=== PATIENT | female | born 1940 | race Caucasian/White ===

== ENCOUNTER 2024-01-21 14:56 | Inpatient (IN) | payer MEDICARE, SELFPAY ==
[2024-01-21] VITALS (46 sets, daily range): BP systolic 65–131; BP diastolic 35–99; BMI 23.5
[2024-01-21 13:01] LABS: Hematocrit 27.6 % (37.0-47.0); Hemoglobin 8.9 g/dL (12.0-16.0); Mean Corp Hgb Conc. 32.2 g/dL (33.0-37.0); Mean Corpuscular Hgb 30.7 pg (27.0-31.0); Mean Corpuscular Volume 95.2 fL (81.0-99.0); Mean Platelet Volume 10.3 fL (7.4-10.4); Platelet Count 306 10^3/uL (130-400); Red Cell Dist. Width 16.5 % (11.5-14.5); White Blood Cell Count 24.8 10^3/uL (4.8-10.8)
--- NOTE | 2024-01-21 13:13 | ED.GENMED ---
History of Present Illness
General
Chief Complaint: Breathing Problem
Source: patient and other (Niece and nephew in law)
Time Seen by Provider: 01/21/24 12:49
Travel History
Have you had any contact with someone who has COVID-19?: Unable to Answer
Do you have any symptoms of coronavirus? Fever > 100 degrees, chills, cough, shortness of breath, sore throat, loss of taste or smell, muscle aches, or headache?: Unable to Answer
History of Present Illness
History of Present Illness:
This patient is an 83-year-old female who up until a few months ago only had a prior medical history for hypertension and depression/anxiety. She then suffered an out of hospital cardiac arrest and was hospitalized in [place], [facility] and is
now on hemodialysis. She also has bilateral renal artery stenosis, A-fib, and heart failure with preserved ejection fracture. She presents today with increasing dyspnea and oxygen requirement. Yesterday family visited her and she was on 2 L nasal
cannula which is unusual for her. Today they noted she was on 6 L with an obvious cough. She had an x-ray at the facility which was suspicious for pulmonary edema versus consolidation. Patient is overall poor historian given her condition, but
states that she does feel short of breath and has an obvious cough here.
Past History
Past History
ED Past Medical History: Other (Renal artery stenosis, hypertension, heart failure with preserved ejection fraction, A-fib, HTN, ESRD)
Social History
Tobacco: Non-smoker
Drug: None
Living: [facility]
Phy Exam
Physical Exam
Physical Exam:
GENERAL: Alert , in moderate respiratory distress
EYE: pupils equal and reactive
NECK: Supple, no significant adenopathy.
ENT: o/p clr, mm dry, obvious productive cough here
CARDIAC: Regular rate and rhythm .
LUNGS: Equal breath sounds bilaterally, moderate respiratory distress, diffuse Rales with occasional wheezing and rhonchi noted
ABDOMEN: Soft, without focal tenderness, no r/g, no cvat
NEUROLOGICAL: Awake and oriented, no focal neuro deficits
SKIN: Warm and dry, skin intact.
MUSCULOSKELETAL: No edema, well perfused.
PSYCH: Normal and appropriate interaction.
Scores
Heart Failure Risk
Heart Failure Risk Score: Not Applicable
Course
Orders/Labs/Results
Orders:
Orders
01/21/24 12:48
EKG [Electrocardiogram (*1)] Urgent
Reason for Study: Shortness of Breath
01/21/24 12:49
Cardiac Monitoring- Treatment ONCE
EKG- Treatment ONCE
Urinalysis Reflex To Culture Urgent
CR Chest Portable - 1 View Urgent
Comment:
Reason For Exam: sob
Reason Study Needs to be Portable: Patient Unstable
Pulse Ox/cont/shift [RESP] Urgent
Quantity: 1
01/21/24 12:51
Complete Blood Count/With Diff Urgent
Comprehensive Metabolic Panel Urgent
Lactic Acid Q4H
Comment: CANCEL 2nd LACTIC ACID IF 1st LACTIC ACID IS LESS THAN 2
Manual Differential Urgent
Troponin I Urgent
Blood Culture Q30M
[place] Source: Blood/Venous
Specimen Description:
Blood Culture Q30M
[place] Source: Blood/Venous
Specimen Description:
Influenza A+B Rapid Molecular Urgent
[place] Source: Nasal Swab
Specimen Description:
01/21/24 12:53
COVID-19 Antigen Urgent
Source: Nasal Swab
01/21/24 13:19
Piperacillin/Tazo 4.5 Gram [Zosyn] 4.5 gram in 100 ml IV NOW
01/21/24 14:15
Sputum Culture [Respiratory Culture/Gram Stain] Urgent
[place] Source: Sputum
Specimen Description:
01/21/24 14:21
Epoetin Ab-Epbx [Retacrit] 8,000 units IV HD-ONCE ONE
Heparin See Dose Instructions INTRACATH HD-ONCE ONE
Mannitol 12.5 grams IV HD-Q1HPRN PRN
Midodrine [ProAmatine] 10 mg PO HD-ONCE ONE
Sodium Chloride [Sodium Chloride 4 Meq/ml For Hemodialysis] 10 ml IV HD-Q1HPRN PRN
Hemodialysis treatment As Directed
Treatment date:: 01/21/24
Treatment type: Hemodialysis
Ultrafiltration (kg): 2-3kg
Treatment time (duration): 3 hours 30 minutes
Use dialysis access:: Tunneled Cath
Dialyzer:: Optiflux 160
Blood flow rate minimum: 350
Blood flow rate maximum: 400
Dialysis flow rate: 600 mL/min
Dialysate temperature: 37 degrees Celsius
Sodium (Na): 137
Potassium (K): 2
Calcium (Ca): 2.5
Bicarbonate (HCO3): 37
01/21/24 14:29
Admit/Transfer Patient As Directed
Co-Sign Provider:
Level of Care: Inpatient admission
Assign to:: ICU
Physician / Group: Dr Antoine
Diagnosis: Acute hypoxic respiratory failure
Reason for Hospitalization: pte p/w sob and hypoxia, found PNA and volume overload.
Expected length of stay greater than two midnights?: Yes
ELOS- Estimated Length of Stay in days: 2
I certify the patient meets the requirements for IP care: Yes
01/21/24 14:31
Code Status As Directed
Resuscitation Status: Full Code
01/21/24 14:33
Sputum Culture [Respiratory Culture/Gram Stain] Routine
[place] Source: Sputum
Specimen Description:
Speech Therapy Eval & Treat Routine
Treatment: swallowing eval
01/21/24 14:34
NEPHROLOGY CONSULT Routine
Consulting Provider: Adam London V.
Was physician already notified: Yes
Reason for consult: HD needs- ESRD
01/21/24 14:35
Tra[employer] Consult Routine
Consulting Provider: Odessa Tanner
Was physician already notified: Yes
Reason for consult: Acute hypoxic resp failure and pna
01/21/24 14:36
Dextrose 50%-Water [Dextrose 50% Syringe] 12.5 grams IV [id number] PRN
Glucagon [GlucaGen] 1 mg IM PRN PRN
Bedside Glucose Monitoring As Directed
Frequency: Q6H
Additional Instructions:: Change to q6h if pt on TPN, tube feeding or not eating
01/21/24 14:38
Legionella Urinary Antigen Routine
[place] Source: Urine
Specimen Description:
Strep pneumoniae Antigen Routine
[place] Source: Urine
Specimen Description:
[place] Catheter [Catheter- Indwelling] As Directed
Reason for insertion: I&O's Critical Care
Assess insertion reason daily.Remove if no longer applicable: Yes
01/21/24 14:45
Blood Culture Q30M
[place] Source: Blood/Venous
Specimen Description:
01/21/24 15:15
Blood Culture Q30M
[place] Source: Blood/Venous
Specimen Description:
01/21/24 16:00
Troponin I Q8H
Piperacillin/Tazo 3.375 Gram [Zosyn] 3.375 gram in 50 ml IV Q6H
VANCOMYCIN Pharmacy to Dose [VANCOCIN Pharmacy to Dose] 1 each Pharmacy To Prepare [Call Pharmacy To Prepare] 0 ml IV PER PROTOCOL
01/21/24 17:00
Lactic Acid Q4H
Comment: CANCEL 2nd LACTIC ACID IF 1st LACTIC ACID IS LESS THAN 2
01/21/24 18:00
Insulin Aspart Corrective Low [Novolog Flexpen-Low Resistance] See Protocol SC Q6
01/22/24 00:00
Troponin I Q8H
01/22/24 06:00
B12 [Vitamin B12] IN AM
Ferritin IN AM
Folate IN AM
Glycohemoglobin (HgbA1c) IN AM
Iron IN AM
LFT [Rkwqg-Sjev-Agumlxm] IN AM
Total Iron Binding IN AM
01/22/24 08:00
Troponin I Q8H
Abnormal Lab Results
01/21/24
12:51
WBC 24.8 H 10^3/uL
(4.8-10.8)
RBC 2.90 L 10^6/uL
(4.20-5.40)
Hgb 8.9 L g/dL
(12.0-16.0)
Hct 27.6 L %
(37.0-47.0)
MCHC 32.2 L g/dL
(33.0-37.0)
RDW 16.5 H %
(11.5-14.5)
Abs Neuts (Manual) 22.5 H 10^3/uL
(1.4-6.5)
Band Neutrophils 30 H %
(0-3)
Lymphocytes (Manual) 5 L %
(20-51)
Sodium 128 L mmol/L
(135-145)
Chloride 94 L mmol/L
(98-107)
BUN 45 H mg/dl
(7-17)
Creatinine 2.9 H mg/dL
(0.6-1.0)
Glucose 200 H mg/dl
(70-99)
Lactic Acid 3.3 H mmol/L
(0.7-2.0)
Alkaline Phosphatase 128 H U/L
(38-126)
Troponin I 0.073 H* ng/ml
Albumin 3.3 L g/dl
(3.5-5.0)
01/21/24 12:51
01/21/24 12:51
Vital Signs
Initial and Last Documented VS:
Initial Vital Signs
Temp Pulse Resp BP Pulse Ox
100.1 F 103 26 123/75 100
01/21/24 12:45 01/21/24 12:45 01/21/24 12:45 01/21/24 12:45 01/21/24 12:45
Last Documented Vital Signs
Temp Pulse Resp BP Pulse Ox
100.1 F 102 22 114/68 98
01/21/24 12:45 01/21/24 14:30 01/21/24 14:30 01/21/24 14:30 01/21/24 14:15
*Critical Care Note
Total Time (30-74mins, 75-104mins- exclusive of procedures): 30
Update Note
Update Note:
Patient presents to the Emergency Department with ____shortness of breath
Number and Complexity of Problems Addressed at the Encounter
� Chronic conditions affecting care:
� Acute Exacerbation and/or Progression of Chronic Illness:
� Differential Diagnosis includes: But not limited to sepsis, pneumonia, pulmonary edema, ACS, etc. etc.
Amount and/or Complexity of Data to be Reviewed and Analyzed
� I performed an independent evaluation of and my interpretation is:
EKG:read by me, sinus tachy with 1st degree block no acute ishcemia
CT:
Xrays:read by rads, suspicious for bilat pna
Laboratory Studies: White blood cell count elevation consistent with suspected infection, anemia noted distant with renal disease
Other:
� Review of other/old records reveals:
� Clinical information was obtained by an independent historian: Nephew in law who is a bander hand and bedside, extensive history obtained from him� Also [facility] records reviewed
� Prescriptions/Medications Considered but not given:
� Further testing considered but not performed:
Risk of Complications and/or Morbidity or Mortality of Patient Management
� Social determinants of health affecting care:
� Discussion with other providers (PCP, Hospitalists, Consultants, etc): 1:18 PM Case discussed with Dr. London from nephrology, aware of patient condition my recommendation for emergent dialysis. Clinically I suspect pulmonary
edema as well as pneumonia.� Low-grade fever, white blood cell count elevation.
� Escalation of care including admission/observation vs risk of discharge considered: Pt resassessed, stable on NRB. Case d/w hospitalist for admission, family updated. Abx running. I am reluctant to give 30 ml/kg blus given
pulm edema/ESRD as well. Bp stable.
ED Attending Note
-
Portions of this chart may have been created with voice recognition software.� Occasional wrong word or��sound alike� substitutions may have occurred due to the inherent limitations of voice recognition software.
Discharge Plan
Departure
Patient Disposition: Admit
Date of Disposition: 01/21/24
Time of Disposition: 13:53
Admit to: ICU
Presentation/result/management discussed w/ accepting MD/DO: Hospitalist
Condition: Critical
Discharge Problem:
Pneumonia, Acute respiratory distress
Interventions
Interventions:
*Risk Screen - Suicide Last Done: 01/21/24 12:47
*General Assessment Last Done: 01/21/24 12:41
*Neglect/Abuse Screening Last Done: 01/21/24 12:47
ED- Fall Risk Assessment Last Done: 01/21/24 13:27
*ED COVID-19 Vaccine History Last Done: 01/21/24 12:41
ED- Cardiac Assessment Last Done: 01/21/24 12:49
ED- Pulmonary Assessment Last Done: 01/21/24 13:27
[2024-01-21 13:16] LABS: ALT (SGPT) 17 U/L (0-35); AST (SGOT) 28 U/L (14-36); Albumin 3.3 g/dl (3.5-5.0); Alkaline Phosphatase 128 U/L (38-126); Blood Urea Nitrogen 45 mg/dl (7-17); Calcium 8.7 mg/dl (8.4-10.2); Carbon Dioxide 24 mmol/L (22-30); Chloride 94 mmol/L (98-107); Glucose 200 mg/dl (70-99); Potassium 4.7 mmol/L (3.5-5.1); Sodium 128 mmol/L (135-145); Total Bilirubin 0.7 mg/dl (0.2-1.3); Total Protein 6.4 g/dl (6.3-8.2); eGFR 15.58
[2024-01-21 13:17] LABS: COVID-19 Antigen Negative (Negative)
[2024-01-21 13:20] LABS: Absolute Neutrophils -Man Diff 22.5 10^3/uL (1.4-6.5); Band Neutrophils 30 % (0-3); Lymphocytes 5 % (20-51); Metamyelocytes 1 % (-); Monocytes 3 % (2-9); Segmented Neutrophils 61 % (42-75)
[2024-01-21 13:21] LABS: Normal RBC Morphology Yes; Platelets Checked Yes; Total Cells Counted 100
[2024-01-21 13:25] LABS: Lactic Acid 3.3 mmol/L (0.7-2.0)
[2024-01-21] MEDS: ZOSYN 100 IV (13:26)
[2024-01-21 13:31] LABS: Troponin I 0.073 ng/ml
--- NOTE | 2024-01-21 14:23 | W.CON.NEPH ---
Consultation
-
Date/Time Consultation Requested: 01/21/24 2:15 PM
Date/Time Consultation Performed: 01/21/24 2:15 PM
Requesting Provider: Elina
Performing Provider: Dr. London
Reason for Consultation: ESRD
Medical History
-
Chief Complaint: ESRD/hypoxia/respiratory distress
History of Present Illness:
The patient is an 83-year-old female who is new to end-stage renal disease. Apparently she was hospitalized in the [place] area and developed ATN following an out of hospital cardiac arrest. During that admission she was placed on dialysis until
she was eventually discharged a few few weeks prior and is now at [facility] receiving dialysis Sunday. Prior to that hospitalization she was in good health and without previous cardiac or renal abnormalities as per review with her
nephew who is a avionics electronics technician at [employer]. He also informing that she had been diagnosed with bilateral renal artery stenosis by duplex during that hospitalization in [place]. No cardiac catheterization was performed following the cardiac arrest
as she had developed acute kidney injury and they wish to limit dye exposure. She does have a history of paroxysmal A-fib and is anticoagulated with Eliquis. She now does have a history of hypertension and is maintained on both Aldactone and
carvedilol. She receives midodrine support on dialysis to augment ultrafiltration. Yesterday family visited her and she was on 2 L nasal cannula which is unusual for her. Today they noted she was on 6 L with an obvious cough. She had an x-ray at
the facility which was suspicious for pulmonary edema versus consolidation. Patient is overall poor historian given her condition, but states that she does feel short of breath and has an obvious cough here. Most of her history was obtained by
speaking to her nephew at the bedside. We were consulted for her end-stage renal disease and respiratory distress in the setting of possible congestive heart failure versus pneumonia.
Past Medical History
(Suspected bilateral renal artery stenosis, hypertension, heart failure with preserved ejection fraction, A-fib, HTN, ESRD over the past couple months with suspected ATN etiology following cardiac arrest when hospitalized in [facility])
Social History
Tobacco: Former Smoker
Alcohol: None
Drug: None
Living: Care Home
Family History
No chronic kidney disease
Allergies / Home Medications
Allergy/AdvReac Type Severity Reaction Status Date / Time
No Known Allergies Allergy Unverified 01/21/24 12:45
�Medication �Instructions �Recorded �Confirmed �Type
acetaminophen 325 mg tablet 650 mg PO Q6HPRN PRN mild pain 01/21/24 01/21/24 History
(Tylenol)
apixaban 2.5 mg tablet (Eliquis) 2.5 mg PO BID 01/21/24 01/21/24 History
atorvastatin 40 mg tablet (Lipitor) 40 mg PO HS 01/21/24 01/21/24 History
bisacodyl 10 mg rectal suppository 10 mg MO DAILYPRN PRN if no bm 01/21/24 01/21/24 History
(Dulcolax (bisacodyl)) aftr mom
budesonide-formoterol HFA 160 2 inh inhalation R [id number] PRN sob 01/21/24 01/21/24 History
mcg-4.5 mcg/actuation aerosol
inhaler (Symbicort)
carvedilol 6.25 mg tablet (Coreg) 6.25 mg PO BID 01/21/24 01/21/24 History
dextromethorphan-guaifenesin 5 10 ml PO Q8HPRN PRN cough 01/21/24 01/21/24 History
mg-100 mg/5 mL oral liquid
(Robitussin Cough-Chest Congestion
DM)
ferrous sulfate 325 mg (65 mg 325 mg PO DAILY 01/21/24 01/21/24 History
iron) tablet
levothyroxine 100 mcg tablet 100 mcg PO DAILY 01/21/24 01/21/24 History
(Synthroid)
midodrine 10 mg tablet 10 mg PO DAILYPRN PRN low bp 01/21/24 01/21/24 History
mirtazapine 15 mg tablet (Remeron) 7.5 mg PO HS 01/21/24 01/21/24 History
nifedipine 90 mg tablet,extended 90 mg PO DAILY 01/21/24 01/21/24 History
release
polyethylene glycol 3350 17 gram 17 g PO DAILY 01/21/24 01/21/24 History
oral powder packet (Miralax)
simethicone 80 mg chewable tablet 80 mg PO [id number] PRN gas 01/21/24 01/21/24 History
sorbitol 70 % solution 30 ml PO DAILYPRN PRN constipation 01/21/24 01/21/24 History
spironolactone 25 mg tablet 25 mg PO DAILY 01/21/24 01/21/24 History
tiotropium bromide 2.5 2 inh inhalation R DAILY 01/21/24 01/21/24 History
mcg/actuation mist for inhalation
vitamin B complex-vitamin C-folic 1 tab PO DAILY 01/21/24 01/21/24 History
acid 0.8 mg tablet (Renal Vitamin)
Review of Systems
-
History Source: Patient and Family
All other systems: Negative unless noted
Constitutional: Fatigue
EENT: No Symptoms
Respiratory: Cough and Trouble Breathing
Cardiac: No Symptoms
Abdomen/GI: No Symptoms
: No Symptoms
Musculoskeletal: No Symptoms
Skin: No Symptoms
Neurological: No Symptoms
Endocrine: No Symptoms
Hematologic/Lymphatic: No Symptoms
Physical Exam
Vital Signs
Vital Signs
Temp Pulse Resp BP Pulse Ox
100.1 F 102 22 121/63 91
01/21/24 12:45 01/21/24 13:45 01/21/24 13:45 01/21/24 13:45 01/21/24 13:45
Lab Results
01/21/24 12:51
01/21/24 12:51
WBC 24.8 10^3/uL (4.8-10.8) H 01/21/24 12:51
RBC 2.90 10^6/uL (4.20-5.40) L 01/21/24 12:51
Hgb 8.9 g/dL (12.0-16.0) L 01/21/24 12:51
Hct 27.6 % (37.0-47.0) L 01/21/24 12:51
Plt Count 306 10^3/uL (130-400) 01/21/24 12:51
Sodium 128 mmol/L (135-145) L 01/21/24 12:51
Potassium 4.7 mmol/L (3.5-5.1) 01/21/24 12:51
Chloride 94 mmol/L (98-107) L 01/21/24 12:51
Carbon Dioxide 24 mmol/L (22-30) 01/21/24 12:51
BUN 45 mg/dl (7-17) H 01/21/24 12:51
Creatinine 2.9 mg/dL (0.6-1.0) H 01/21/24 12:51
eGFR 15.58 01/21/24 12:51
Glucose 200 mg/dl (70-99) H 01/21/24 12:51
Calcium 8.7 mg/dl (8.4-10.2) 01/21/24 12:51
Albumin 3.3 g/dl (3.5-5.0) L 01/21/24 12:51
Physical Exam
General: AOx3, Nontoxic , moderate respiratory distress
HEENT: PERRL, EOMI, Anicteric, Conjunctivae pale, Ear/Nose Intact, Hearing impaired, Oropharynx Clear/Moist, Dentition Intact, Facial Symmetry, Neck Supple, Neck: Trachea Midline, No JVD and No Thyromegaly, no Bruits
Respiratory: Coarse with crackles at the bases bilaterally with normal lung exersion
Cardiac: S1/S2 and Regular Rate/Rhythm tacky
Breast: Deferred by me
Abdomen: Soft, Nontender, Nondistended, Normal Bowel Sounds and No Hepatosplenomegaly
Rectal: Deferred by Provider
Genito-urinary: No Costovertebral Tenderness
Extremities: No Clubbing, No Cyanosis and No Edema
Skin: No Rash or open lesions
Neuro: Nonfocal/Grossly Intact, CN II-XII (Intact) and Strength (Musculoskeletal exam 5 out of 5 both upper and lower extremities)
Hematologic/Lymphatic: No Cervical Lymphadenopathy, No Submandibular Lymphadenopathy and No Supraclavicular Lymphadenopathy
Psych: Anxious but flat affect pleasant, Insight/judgement good and Appropriate
Vascular: plus 1 pedal and radial pulses
Vascular Access: CVC (Right anterior chest wall)
Data Reviewed
-
Radiology: Image Personally Visualized and interpreted (Chest x-ray personally reviewed noted bilateral pulmonary infiltrates at bases)
Medical Tests (Nuc Med, Echo etc): Other (EKG report notes sinus tachycardia with first-degree AV block and premature atrial complexes )
Labs: Labs Reviewed by me (BMP CBC)
Old Records: Requested (Old records from hospitalization and ER)
Assessment/Plan
-
Impression:
Hypoxic respiratory failure
Suspected pneumonia with possible underlying congestive heart failure
End-stage renal disease (new dx within a month with suspected ATN origin following out of hospital cardiac arrest)
Hypertension
Paroxysmal A-fib
Suspected bilateral renal artery stenosis
Hypothyroidism
Anemia
Plan:
Will provide urgent dialysis in setting of respiratory failure with possible congestive heart failure component
Orders provided
Will attempt 2 to 3 kg ultrafiltration with midodrine given to augment blood pressure
XIN will be provided for anemia of chronic kidney disease
Antibiotic therapy to cover nosocomial pneumonia,oxygen support
Will obtain blood and sputum cultures in setting of leukocytosis and fever
Would provide 1500 cc fluid restriction re: hyponatremia in setting of ESRD, appropriate dietary sodium and potassium restrictions
Can check post void bladder scan to assess for possible urinary retention
Suggested to mahesh, who is a avionics electronics technician at [employer], that in the future an MRA be considered to evaluate suspected bilateral renal artery stenosis
--- NOTE | 2024-01-21 14:39 | HPS.HSE ---
Family Physician
-
Family Physician: Bharathi Shah, DO
Chief Complaint
-
sob
History of Present Illness
Patient 82 years old female with history of end-stage renal disease on hemodialysis, hypertension, CHF, A-fib, presented to the hospital shortness of breath. Most of the information gathered from nephew who is a transfer long term care phlebotomist that works at
[employer] and is at bedside corroborated history with patient. Patient had a cardiac arrest about 6 months ago and managed at [facility] and ultimately sent to rehab around this area close to family and at that time she was
diagnosed with atrial fibrillation which was felt to be part of her etiology of her arrest, renal artery stenosis, and HARSHA due to ATN that required hemodialysis and has been on hemodialysis since 3 times a week. She did not have cardiac
catheterization due to her acute illnesses. She is at [facility] around this area and there have been some troubles with her dialysis and is not clear that she has been dialyzed appropriately but last time she had a session was back
on Sunday and she has been noticed to be more short of breath than usual over the last several days associated with increased cough with yellow sputum production. No reports of fevers or chills. No reports of chest pain. No abdominal pain. When
asked if there is issues with dysphagia or choking when eating it looks that she has been having some issues but not entirely clear. She also has been straight cathed multiple times and likely has some urinary incontinence but also there has been
concerns about decreasing her urine output lately but has not been quantified. In the ED, she was noted to be hypoxic and placed on nonrebreather 100% oxygen , she had a white blood cell count of 25,000, hemoglobin 8.9, creatinine 2.9, BUN 45,
troponin 0.073, and lactic acid of 3.3. She also had a chest x-ray with some congestive features but mainly consolidation in the left and right midlung. She was referred to hospitalist for further evaluation.
Medical History
Past Medical History
Past Medical History: Reports Other (Hypertension, hypotension requiring midodrine, chronic diastolic CHF, paroxysmal atrial fibrillation, end-stage renal disease followed by ATN in recent months, renal artery stenosis, cardiorespiratory arrest)
Past Surgical History: Reports Other (Ankle surgerie in the past)
Social History
Tobacco: Former Smoker
Alcohol: None
Drug: None
Family History
Family History: Not pertinent
Allergies / Home Medications
Allergies reflects when Allergies were last updated in [employer].
Home Medications with original date entered in [employer]
Allergy/Medication List:
Allergies
Allergy/AdvReac Type Severity Reaction Status Date / Time
No Known Allergies Allergy Unverified 01/21/24 12:45
Home Medications
acetaminophen 325 mg tablet (Tylenol) 650 mg PO Q6HPRN PRN mild pain 01/21/24
apixaban 2.5 mg tablet (Eliquis) 2.5 mg PO BID 01/21/24
atorvastatin 40 mg tablet (Lipitor) 40 mg PO HS 01/21/24
bisacodyl 10 mg rectal suppository (Dulcolax (bisacodyl)) 10 mg CO DAILYPRN PRN if no bm aftr mom 01/21/24
budesonide-formoterol HFA 160 mcg-4.5 mcg/actuation aerosol inhaler (Symbicort) 2 inh inhalation R [id number] PRN sob 01/21/24
carvedilol 6.25 mg tablet (Coreg) 6.25 mg PO BID 01/21/24
dextromethorphan-guaifenesin 5 mg-100 mg/5 mL oral liquid (Robitussin Cough-Chest Congestion DM) 10 ml PO Q8HPRN PRN cough 01/21/24
ferrous sulfate 325 mg (65 mg iron) tablet 325 mg PO DAILY 01/21/24
levothyroxine 100 mcg tablet (Synthroid) 100 mcg PO DAILY 01/21/24
midodrine 10 mg tablet 10 mg PO DAILYPRN PRN low bp 01/21/24
mirtazapine 15 mg tablet (Remeron) 7.5 mg PO HS 01/21/24
nifedipine 90 mg tablet,extended release 90 mg PO DAILY 01/21/24
polyethylene glycol 3350 17 gram oral powder packet (Miralax) 17 g PO DAILY 01/21/24
simethicone 80 mg chewable tablet 80 mg PO [id number] PRN gas 01/21/24
sorbitol 70 % solution 30 ml PO DAILYPRN PRN constipation 01/21/24
spironolactone 25 mg tablet 25 mg PO DAILY 01/21/24
tiotropium bromide 2.5 mcg/actuation mist for inhalation 2 inh inhalation R DAILY 01/21/24
vitamin B complex-vitamin C-folic acid 0.8 mg tablet (Renal Vitamin) 1 tab PO DAILY 01/21/24
Review of Systems
-
Unable to obtain full review of systems at this time due to: Acuity
Physical Exam
Vital Signs
Vital Signs
Temp Pulse Resp BP Pulse Ox
100.1 F 102 22 114/68 98
01/21/24 12:45 01/21/24 14:30 01/21/24 14:30 01/21/24 14:30 01/21/24 14:15
Physical exam:
General: Acutely ill
HEENT: Normocephalic, Atraumatic and Moist Mucous Membranes
Respiratory: Coarse crackles in both bases more pronounced on the right; Negative Wheezes or Rhonchi
Cardiac: Regular Rhythm and S1/S2, systolic murmur radiating to axilla
GI: Soft, Nontender and Nondistended
Musculoskeletal: No Clubbing, No Cyanosis and B/L Edema
Neuro: Awake, Alert and Oriented
Physical Exam
General: Other
Laboratory Results
-
01/21/24 12:51
01/21/24 12:51
Laboratory Results
Lactic Acid 3.3 mmol/L (0.7-2.0) H 01/21/24 12:51
Total Bilirubin 0.7 mg/dl (0.2-1.3) 01/21/24 12:51
AST 28 U/L (14-36) 01/21/24 12:51
ALT 17 U/L (0-35) 01/21/24 12:51
Alkaline Phosphatase 128 U/L (38-126) H 01/21/24 12:51
Troponin I 0.073 ng/ml H* 01/21/24 12:51
Impression/Plan
-
IMPRESSION:
Patient 83-year-old female with multiple medical problems came into the hospital with shortness of breath and cough and found to be in acute hypoxic respiratory failure. Acute hypoxic respiratory failure seems to be multifactorial likely related to
pneumonia and also probably volume overload to some degree. She also has elevated troponin which could be related to elevated troponin due to non-ischemic myocardial injury versus possibility of acute coronary syndrome. Patient at increased risk
of morbidity and mortality and critically ill so she will need to be admitted to intensive care unit in the hospital. Prognosis guarded overall.
Impression:
Acute hypoxic respiratory failure, multifactorial volume overload related to end-stage renal disease, pneumonia, CHF.
Pneumonia, concerns for aspiration pneumonia
Sepsis due to pneumonia
Lactic acidosis due to above
Possible renal artery stenosis
Conditions prior to presentation:
End-stage renal disease on hemodialysis
Hypertension
Hypotension
Hypothyroidism
Paroxysmal atrial fibrillation
Chronic diastolic CHF
Possible COPD
PLAN:
Continue oxygen supplementation
Keep n.p.o. until respiratory status improves and speech therapy eval for swallowing evaluation
Broad-spectrum IV antibiotics, Zosyn and vancomycin
Discussed with nephrology
Plan for urgent hemodialysis today
Trend cardiac enzymes
Keep cardiac monitoring
Obtain echocardiogram
Contact Representative consult ([place] texted retail analytics manager today)
Obtain blood cultures
Obtain sputum cultures
SCDs for DVT prophylaxis
CODE STATUS full code
Total Critical Care Time 55 minutes. I was immediately available to the patient and staff. I personally examined, reviewed labs, diagnostic images/reports, interpretations, treatment plans, discussed patient care with other providers and family
or caregivers (if patient is unable to make decisions), entered orders as appropriate and documented the medical record.
--- NOTE | 2024-01-21 15:08 | PHA.VAN.IN ---
Assessment
- Assessment
Renal Function: Unknown baseline
Hemodialysis Schedule: MWF
Maximum Temperature: 100.1
Minimum Temperature: 100.1
Concomitant Antimicrobials: Piperacillin/Tazobactam
Plan
- Plan
Initial / Loading Dose: 1250mg post HD
Pharmacokinetics Vancomycin I
- -
Patient Age: 83
Patient Sex: Female
Vancomycin Day #: 1
Indication: Pulmonary/Respiratory
Requesting Provider: Alma Antoine
Pertinent Antimicrobial Allergies:
NKDA
Height / Weight:
Actual Weight 62 kg
Pertinent Past Medical History: ESRD
- Vital Signs / Lab Results
Temp Pulse Resp BP Pulse Ox
100.1 F 102 22 114/68 98
01/21/24 12:45 01/21/24 14:30 01/21/24 14:30 01/21/24 14:30 01/21/24 14:15
Lab Results - Hematology
01/21/24
12:51
WBC 24.8 H
Band Neutrophils 30 H
Lab Results - Chemistry
01/21/24
12:51
BUN 45 H
Creatinine 2.9 H
Albumin 3.3 L
01/21/24
12:51
Lactic Acid 3.3 H
Microbiology Results
01/21/24 12:51 Influenza Types A & B (DINORAH) - Final
Nasal Swab Negative for Influenza A & B, NAAT
Negative results must be combined with clinical observations
and patient history.
Nucleic Acid Amplification test (NAAT)performed on the
[employer] platform.
--- NOTE | 2024-01-21 16:16 | CON.INTV ---
Consultation
Consultation Request
Date/Time Consultation Requested: 01/20
Date/Time Consultation Performed: 01/20
Reason for Consultation: Critical care
Medical History
-
History of Present Illness:
History obtained from the chart, from pt, and daughter and son in law by phone (president commercial [employer]). 83-year-old female [facility] resident with history of hypertension, out of hospital cardiac arrest while in [place] complicated by ATN/end-stage
renal disease on hemodialysis, bilateral renal artery stenosis, history of heart failure and atrial fibrillation who presents with increased shortness of breath and oxygen requirement. Patient apparently is on 2 L as an outpatient, but required up
to 6 L. Outpatient chest x-ray suggested heart failure versus pneumonia. Upon arrival to [facility], temperature 100.1, pulse 103, breathing at 26, blood pressure 123/75, 100% saturation. EKG with sinus tachycardia, chest x-ray concerning
for bilateral patchy pneumonia left worse than right. Leukocytosis noted. Patient was given antibiotics and admitted to ICU for further management. Of note, significant leukocytosis and creatinine of 2.9 noted, lactate 3.3. We are asked to help
from critical care standpoint 01/21/2024
There is a hx of weight loss, poor dentition
.
PMH: Suspected bilateral renal artery stenosis, end-stage renal disease secondary to ATN following cardiac arrest (PEA) while in [facility] November 2023, traumatic intubation with tooth loss and aspiration of tooth requiring bronch with retrieval,
hypertension with HTN urgency/emergency?, history of atrial fibrillation, history of heart failure with mod MR, congenital left sided facial droop, left ankle fx 2014, depression/anxiety. Hx of COPD.
Past Medical History
Past Medical History: None (See above)
Past Surgical History: None (See above)
Social History
Tobacco: Smoker (quit 1989, 30py)
Alcohol: None
Drug: None
Personal: Single
Living: Detention (since December 2023, prior was independent in [facility])
Employment: Not Employed
Family History
Family History: Other (7 siblings (1 from breast ca), hx of , afib, breast ca. No children)
Allergies / Home Medications
Allergies
Allergy/AdvReac Type Severity Reaction Status Date / Time
No Known Allergies Allergy Unverified 01/21/24 12:45
Home Medications
�Medication �Instructions �Recorded �Confirmed �Last Taken �Type
acetaminophen 325 mg tablet 650 mg PO Q6HPRN PRN mild pain 01/21/24 01/21/24 Unknown History
(Tylenol)
apixaban 2.5 mg tablet (Eliquis) 2.5 mg PO BID 01/21/24 01/21/24 Unknown History
atorvastatin 40 mg tablet (Lipitor) 40 mg PO HS 01/21/24 01/21/24 Unknown History
bisacodyl 10 mg rectal suppository 10 mg WI DAILYPRN PRN if no bm 01/21/24 01/21/24 Unknown History
(Dulcolax (bisacodyl)) aftr mom
budesonide-formoterol HFA 160 2 inh inhalation R [id number] PRN sob 01/21/24 01/21/24 Unknown History
mcg-4.5 mcg/actuation aerosol
inhaler (Symbicort)
carvedilol 6.25 mg tablet (Coreg) 6.25 mg PO BID 01/21/24 01/21/24 Unknown History
dextromethorphan-guaifenesin 5 10 ml PO Q8HPRN PRN cough 01/21/24 01/21/24 Unknown History
mg-100 mg/5 mL oral liquid
(Robitussin Cough-Chest Congestion
DM)
ferrous sulfate 325 mg (65 mg 325 mg PO DAILY 01/21/24 01/21/24 Unknown History
iron) tablet
levothyroxine 100 mcg tablet 100 mcg PO DAILY 01/21/24 01/21/24 Unknown History
(Synthroid)
midodrine 10 mg tablet 10 mg PO DAILYPRN PRN low bp 01/21/24 01/21/24 Unknown History
mirtazapine 15 mg tablet (Remeron) 7.5 mg PO HS 01/21/24 01/21/24 Unknown History
nifedipine 90 mg tablet,extended 90 mg PO DAILY 01/21/24 01/21/24 Unknown History
release
polyethylene glycol 3350 17 gram 17 g PO DAILY 01/21/24 01/21/24 Unknown History
oral powder packet (Miralax)
simethicone 80 mg chewable tablet 80 mg PO [id number] PRN gas 01/21/24 01/21/24 Unknown History
sorbitol 70 % solution 30 ml PO DAILYPRN PRN constipation 01/21/24 01/21/24 Unknown History
spironolactone 25 mg tablet 25 mg PO DAILY 01/21/24 01/21/24 Unknown History
tiotropium bromide 2.5 2 inh inhalation R DAILY 01/21/24 01/21/24 Unknown History
mcg/actuation mist for inhalation
vitamin B complex-vitamin C-folic 1 tab PO DAILY 01/21/24 01/21/24 Unknown History
acid 0.8 mg tablet (Renal Vitamin)
Review of Systems
-
History Source: Family
Vitals / Labs / Diagnostic Testing
Vital Signs
Temp Pulse Resp BP Pulse Ox
100.1 F 101 33 124/60 96
01/21/24 12:45 01/21/24 16:01 01/21/24 16:01 01/21/24 16:01 01/21/24 16:00
Lab Data
01/21/24 12:51
01/21/24 12:51
Microbiology
01/21/24 12:51 Nasal Swab Influenza Types A & B (DINORAH) - Final
Negative for Influenza A & B, NAAT
Negative results must be combined with clinical observations
and patient history.
Nucleic Acid Amplification test (NAAT)performed on the
[employer] platform.
Diagnostic Testing:
Physical Exam
-
HEENT: Normocephalic, Anicteric and Other (poor dentition)
Cardiovascular: S1/S2, Regular Rhythm, Murmur (n), Rub (n) and Peripheral Edema (n)
Respiratory: Wheeze (n), Rales (n), Rhonchi (left greater than rt) and Accessory Resp Muscle Use (mild)
GI: Soft, Non Distended and Non Tender
Neurology: Awake, Alert and No Motor Deficits (moves all extremities)
Skin: Good Color
General: Comfortable
Assessment
-
83-year-old female with history of atrial fibrillation on anticoagulation, history of [id number] cardiac arrest in the past complicated by end-stage renal disease, on hemodialysis who presents with suspected bilateral patchy pneumonia,
leukocytosis, worsening hypoxia. Patient admitted to ICU for further management 01/21/2024
Acute hypoxic respiratory insufficiency
Requiring nonrebreather
Bilateral infiltrates, suspected pneumonia
Leukocytosis, bandemia
Anemia
ESRD on HD (M/W/F)
Hyponatremia hyperglycemia
Mildly elevated troponin
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
Normal biventricular function
Conditions present prior to admission
Hypertension/hyperlipidemia hypothyroidism
History of OOHCA/PEA November 2023
VDRF
c/b ATN/ESRD
Aspirated tooth secondary to traumatic intubation November 2023
Required bronchoscopy with retrieval on right side
Atrial fibrillation on anticoagulation
Hx of Hypothyroidism
History of COPD
[id number] history of smoking quit 1989
Plan/recommendations
At this time, patient is critically ill
She is conversant, Pennington catheter in place, cloudy urine being drained
Chest exam and chest x-ray worrisome for bilateral pneumonia
Patient with okay cough
Significant smoking history noted
Moving forward
Continue with empiric antibiotics, currently on Zosyn/vancomycin
Cultures pending
Transition to nebulized therapy, chest percussion
Will set up on sport bed with percussion 3 times daily
Check ABG
Head of bed elevated, aspiration precautions
Doubt heart failure. Echocardiogram with normal biventricular function, eccentric MR noted
Apparently had echocardiogram while in [facility] with mild to moderate MR at that time
Elevated troponins noted, trend
Other etiologies to consider include thromboembolic disease but exam, leukocytosis and chest x-ray are worrisome for pneumonia
Patient did have an aspirated tooth with difficult intubation/traumatic intubation while in [facility] requiring a bronchoscopy with tooth retrieval on right side of the lung
Poor dentition is noted
Follow blood sugars
Low-dose insulin sliding scale. Hyperglycemia noted
DVT prophylaxis: Add subcutaneous heparin
GI prophylaxis: Not indicated at this time
Reviewed with critical care nursing
Updated son-in-law by phone/daughter. Son-in-law is president commercial bank, transplant/heart failure specialist at [place]
All questions answered
TCCT 40 min
[2024-01-21 16:51] LABS: Troponin I 0.079 ng/ml
[2024-01-21 17:00] LABS: Glucose - Point of Care 200 mg/dl (70-99)
[2024-01-21 17:10] LABS: Lactic Acid 3.3 mmol/L (0.7-2.0)
--- NOTE | 2024-01-21 17:19 | W.PN.NEPH.HD ---
Assessment
-
Patient very tachypneic and short of breath
Will attempt to maximize UF as hemodynamically tolerated
Dialysis via right tunneled IJ catheter
Progress Note - Hemodialysis
-
Date of Service: January 21, 2024
Duration: 30 minutes and 3 hours
Potassium Bath: 2
Calcium Bath: 2.5
Opti-Dialyzer: 160
Ultrafiltration: Other (2 to 3 kg as hemodynamically tolerated)
Blood Flow: 400
Heparin: None
EPO: 8000
[2024-01-21] MEDS: NOVOLOG FLEXPEN-LOW RESISTANCE 2 UNITS SC (17:20)
--- NOTE | 2024-01-21 17:32 | W.PN.UPDATE ---
Addendum entered and electronically signed by Odessa Tanner MD 01/21/24 17:48:
STEPHEN cell # [phone]
Original Note:
Update Note
Progress Note Update
Evaluating patient multiple times over the last few hours
Upon starting hemodialysis, there was a question as to whether patient was aphasic, had word finding difficulties.
With my assessment and with son-in-law at the bedside, patient was able to speak in complete sentences answering but then would have occasional word finding difficulties but was able to communicate effectively
Brief neuroexam per my review without any acute findings.
Patient with chronic left facial droop
She is following commands
She is making requests
I suspect her intermittent word findings is combination/multifactorial. Sepsis, shortness of breath, dyspnea with rapid shallow breathing and profound weakness
Briefly spoke with neurology by phone. Did not pursue head CT imaging at this time. Patient already on Eliquis therapy.
If exam changes we will pursue head CT imaging and appropriate neurology evaluation
More concerned about respiratory status, CO2 retention
Await ABG. Suspected to be secondary to sepsis with respiratory alkalemia
May need to transition to high flow depending on a gradient
Patient high risk for intubation. Reviewed with family at bedside including son-in-law who is a internal carver
TCCT 37 min
[2024-01-21 17:40] LABS: B.E. 3.3 mmol/L; HCO3 26.7 mmol/L (21-28); O2 Saturation % 98.4 % (94-98); PCO2 35 mmHg (32-35); PO2 79 mmHg (83-108); pH 7.49 (7.35-7.45)
[2024-01-21] MEDS: ProAmatine 10 MG PO (18:11)
--- NOTE | 2024-01-21 18:29 | PTCARENOTE ---
Received pt from ED for stat HD. Assessment performed as noted. Pt, upon arrival to ICU, word searching, unable to state location after ED reported A&O. Stroke alert called but cancelled by Multiple Drum Sander, Superintendent Stations, and Neurologist. Family at
bedside stating that she does not have this problem at baseline but feels that she is okay and they don't feel that she has had a stroke. ABG performed, labs sent. Pennington placed as ordered. NRB removed and 15L MF placed. SpO2 95% with frequent moist
weak cough. ST with frequent PACs. Able to take meds PO without issue. HD Began at 1725.
[2024-01-21] MEDS: RETACRIT 8000 UNITS IV (18:44)
[2024-01-21] MEDS: MANNITOL 12.5 GRAMS IV ×2 (18:45→20:07)
[2024-01-21] MEDS: PULMICORT 0.5 MG INH (19:37)
[2024-01-21] MEDS: DUONEB 3 ML INH (19:37)
[2024-01-21] MEDS: VANCOCIN 275 MG IV (20:01)
[2024-01-21] MEDS: HEPARIN 10000 UNITS INTRACATH (20:48)
--- NOTE | 2024-01-21 21:00 | PTCARENOTE ---
received patient. HD ongoing at bedside. pt ZUNI with hearing aid in R ear. oriented x3, L side facial droop/paralysis noted. ST on monitor. c/o SOB, NRB placed on top of 15L midflow. pt desatting to low 80s, RT contacted to place pt on HFNC. high
flow initiated 100% 50L, relief noted by patient - satting 94%. NPO. riley in place, milky yellow urine noted. care ongoing.
[2024-01-21 21:57] LABS: Urine Albumin 1+ (Neg - Trace); Urine Bilirubin 1+ (Negative); Urine Character Very Cloudy (Clear); Urine Color Yellow; Urine Glucose Negative (Negative); Urine Ketone Trace (Negative); Urine Leukocyte 2+ (Negative); Urine Nitrite Negative (Negative); Urine Occult Blood 3+ (Negative); Urine Urobilinogen Negative (Neg - 1+)
[2024-01-21 22:03] LABS: Urine Bacteria Many (Negative); Urine Granular Cast >15 /LPF (0); Urine Squamous Cell 0-2 /LPF (Few); Urine White Cell >100 /HPF (0-5)
[2024-01-21] MEDS: ZOSYN 50 IV (23:12)
[2024-01-21] MEDS: HEPARIN 5000 UNITS SC (23:12)
[2024-01-21 23:31] LABS: Glucose - Point of Care 124 mg/dl (70-99)
[2024-01-21] MEDS: NOVOLOG FLEXPEN-MODERATE RESISTANCE SC (23:31)
[2024-01-22] VITALS (50 sets, daily range): BP systolic 85–128; BP diastolic 48–95; PULSE 94; O2SAT 97; BMI 22.9
--- NOTE | 2024-01-22 00:18 | PTCARENOTE ---
pt reassessed. remains ST on monitor. afebrile. HFNC settings adjusted to 60L, 100% with NRB on top. pt now satting 95%. minimal UOP. pt repositioned. care ongoing.
--- NOTE | 2024-01-22 01:44 | PTCARENOTE ---
pt with HFNC 100% 60L and NRB, satting high 80s, RR in 40s, looks visibly fatigued. ICU CHERRY DIPPER notified, ABG ordered and drawn. awaiting results
[2024-01-22 01:47] LABS: B.E. 7.7 mmol/L; HCO3 30.8 mmol/L (21-28); Ionized Calcium 1.12 mMOL/L (1.15-1.33); O2 Saturation % 96.5 % (94-98); PCO2 36 mmHg (32-35); PO2 66 mmHg (83-108); Potassium 3.8 mMOL/L (3.5-5.1); Sodium 131 mMOL/L (136-145); pH 7.54 (7.35-7.45)
[2024-01-22 01:49] LABS: Troponin I 0.072 ng/ml
[2024-01-22] MEDS: OFIRMEV 100 IV (02:20)
[2024-01-22 04:41] LABS: Hematocrit 22.9 % (37.0-47.0); Hemoglobin 7.4 g/dL (12.0-16.0); Mean Corp Hgb Conc. 32.3 g/dL (33.0-37.0); Mean Corpuscular Hgb 30.2 pg (27.0-31.0); Mean Corpuscular Volume 93.5 fL (81.0-99.0); Mean Platelet Volume 10.1 fL (7.4-10.4); Nucleated Red Blood Cells % 0 %; Platelet Count 244 10^3/uL (130-400); Red Blood Cell Count 2.45 10^6/uL (4.20-5.40); Red Cell Dist. Width 16.3 % (11.5-14.5); White Blood Cell Count 21.7 10^3/uL (4.8-10.8)
--- NOTE | 2024-01-22 04:46 | PTCARENOTE ---
pt reassessed. AM labs sent. repositioned with pillows. neuro status unchanged. SR on monitor. HFNC settings remain at 60L 100%. currently satting 100%. ofirmev x1. care ongoing.
[2024-01-22 05:11] LABS: ALT (SGPT) 13 U/L (0-35); AST (SGOT) 27 U/L (14-36); Albumin 2.6 g/dl (3.5-5.0); Alkaline Phosphatase 109 U/L (38-126); Blood Urea Nitrogen 22 mg/dl (7-17); Carbon Dioxide 27 mmol/L (22-30); Chloride 94 mmol/L (98-107); Direct Bilirubin 0.7 mg/dl (0.0-0.4); Estimated Creatinine Clearance 19 ml/min; Glucose 138 mg/dl (70-99); Iron 21 ug/dl (37-170); Potassium 3.6 mmol/L (3.5-5.1); Sodium 130 mmol/L (135-145); Total Bilirubin 0.9 mg/dl (0.2-1.3); Total Protein 5.4 g/dl (6.3-8.2); eGFR 25.88
[2024-01-22] MEDS: NOVOLOG FLEXPEN-MODERATE RESISTANCE SC ×2 (05:12→17:17)
[2024-01-22 05:13] LABS: Absolute Neutrophils -Man Diff 18.4 10^3/uL (1.4-6.5); Band Neutrophils 37 % (0-3); Hypochromasia 1+; Lymphocytes 8 % (20-51); Metamyelocytes 3 % (-); Monocytes 3 % (2-9); Myelocytes 1 % (-); Normal RBC Morphology No; Platelets Checked Yes; Segmented Neutrophils 48 % (42-75); Total Cells Counted 100; Vacuolated Segs 1+
[2024-01-22 05:21] LABS: Percent Saturation 14 % (20-50); Total Iron Binding Capacity 144 ug/dl (265-497)
[2024-01-22] MEDS: ZOSYN 50 IV ×3 (05:24→21:15)
[2024-01-22 05:55] LABS: Hepatitis B Surface Antibody Negative
[2024-01-22] MEDS: CALCIUM GLUCONATE 100 IV (06:05)
[2024-01-22 06:19] LABS: Folate 7.6 ng/ml (2.76-20); Vitamin B12 723 pg/ml (239-931)
[2024-01-22] MEDS: HEPARIN 5000 UNITS SC (07:23)
[2024-01-22] MEDS: DUONEB 3 ML INH ×4 (07:34→19:31)
[2024-01-22] MEDS: PULMICORT 0.5 MG INH ×2 (07:34→19:31)
--- NOTE | 2024-01-22 08:03 | W.PN.INTV ---
Today's Communication / Plan
Recommendations
Sport bed, airway clearance
Add midodrine
May require intermittent fluid bolus
Restart Eliquis
Continue broad-spectrum antibiotics
Chest x-ray in a.m. speech and swallow eval, restart p.o. as able
Assessment
-
83-year-old female with history of atrial fibrillation on anticoagulation, history of [id number] cardiac arrest in the past complicated by end-stage renal disease, on hemodialysis who presents with suspected bilateral patchy pneumonia,
leukocytosis, worsening hypoxia. Patient admitted to ICU for further management 01/21/2024
Acute hypoxic respiratory insufficiency
Requiring nonrebreather, transition to high flow
Bilateral infiltrates, suspected pneumonia
Leukocytosis, bandemia
Anemia
ESRD on HD (M/W/F)
Hyponatremia hyperglycemia
Mildly elevated troponin
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
Normal biventricular function
Conditions present prior to admission
Hypertension/hyperlipidemia hypothyroidism
History of OOHCA/PEA November 2023
VDRF
c/b ATN/ESRD
Aspirated tooth secondary to traumatic intubation November 2023
Required bronchoscopy with retrieval on right side
Atrial fibrillation on anticoagulation
Hx of Hypothyroidism
History of COPD
[id number] history of smoking quit 1989
Plan/recommendations
At this time, patient is critically ill, transition to high flow overnight
ABG reviewed, no evidence of CO2 retention
Lactate acid remains elevated at 3.3. Pennington catheter in place. Dialysis patient
Less rhonchorous on today's exam
Weak cough
Significant smoking history noted
Moving forward
Continue with empiric antibiotics, currently on Zosyn/vancomycin
Cultures pending
Continue nebulized therapy, chest percussion, sport bed (has yet to be set up)
Minimize any sedation
Respiratory status remains high risk
Head of bed elevated, aspiration precautions
Speech and swallow evaluation
Doubt heart failure. Echocardiogram with normal biventricular function, eccentric MR noted
Apparently had echocardiogram while in [facility] with mild to moderate MR at that time
Elevated troponins noted, trend
Abnormal UA
Bilateral pneumonia continue Zosyn/vancomycin. Follow cultures
Hemodialysis continues Sunday/Sunday/Sunday
Midodrine to be added per nephrology
May require intermittent fluid boluses, not requiring pressors, follow
Other etiologies to consider include thromboembolic disease but exam, leukocytosis and chest x-ray are worrisome for pneumonia
Patient did have an aspirated tooth with difficult intubation/traumatic intubation while in [facility] requiring a bronchoscopy with tooth retrieval on right side of the lung
Poor dentition is noted
Follow blood sugars
Low-dose insulin sliding scale. Hyperglycemia noted
DVT prophylaxis: Eliquis has been resumed 2.5 mg twice a day. History of atrial fibrillation noted
GI prophylaxis: Not indicated at this time
Reviewed with critical care nursing, respiratory care, pharmacy, case management
Updated son-in-law by phone/daughter. Son-in-law is naval science teacher, transplant/heart failure specialist at [employer] on 01/20
Updated daughter at bedside 01/21
TCCT 35 min
Subjective Dataa
Subjective Data
Date of Service:
Date of Service: January 22, 2024
Subjective:
Patient remains critically ill, transition to high flow oxygen overnight. Remains weak. Hemoglobin decreased to 7.4. Lactate elevated 3.3. Abnormal urinalysis noted
Objective Data
Data Reviewed
Vital Signs / I&O / Oxygen:
Vital Signs
Temp Pulse Resp BP Pulse Ox
98.3 F 88 29 113/60 96
01/22/24 04:24 01/22/24 07:37 01/22/24 07:37 01/22/24 06:30 01/22/24 07:38
Intake and Output
01/21/24 01/22/24 01/23/24
06:59 06:59 06:59
Intake Total 300 / 300
Output Total 100 / 100
Balance 200 / 200
SaO2 96
Nasal Cannula flow liters per 50
minute
Physical Exam
General: Comfortable (Fatigued, weak) and Other (Right anterior port)
HEENT: Normocephalic, Anicteric and Other (Left facial droop, unable to close left eyelid)
Cardiovascular: S1-S2, Regular Rhythm, Murmur (n), Rub (n) and Peripheral Edema (n)
Respiratory: Wheeze (n), Crackles (n), Rhonchi (few) and Other (Decreased)
GI: Soft, Non Distended and Non Tender
Neurology: Awake (Hard of hearing, does follow some commands, weak cough)
Skin: Cyanosis (n), Jaundice (n), Rash (n) and Other (Mild pallor)
Labs/Micro/Reports
Lab Data
01/22/24 04:32
01/22/24 04:32
Laboratory Results
01/21/24 01/22/24
17:10 01:43
pH 7.49 H 7.54 H
pCO2 35 36 H
pO2 79 L 66 L
HCO3 26.7 30.8 H
O2 Delivery Level
Microbiology
01/21/24 16:46 Nose Nasal Screen MRSA (PCR) - Final
Staph aureus MRSA
01/21/24 16:46 Urine Legionella Urinary Antigen - Final
Negative for Legionella pneumophila Serogroup 1 antigen.
A negative result does not rule out the possiblity of
Legionella infection due to other serogroups or species of
Legionella. Clinical correlation is recommended.
01/21/24 16:46 Urine Streptococcus pneumoniae Antigen (M - Final
Negative for Streptococcus pneumoniae antigen.
A negative result does not exclude infection with
Streptococcus pneumoniae. Clinical correlation is
recommended.
01/21/24 16:15 Sputum Gram Stain - Preliminary
01/21/24 12:51 Nasal Swab Influenza Types A & B (DINORAH) - Final
Negative for Influenza A & B, NAAT
Negative results must be combined with clinical observations
and patient history.
Nucleic Acid Amplification test (NAAT)performed on the
[employer] platform.
[2024-01-22 08:05] LABS: Troponin I 0.056 ng/ml
--- NOTE | 2024-01-22 08:35 | PHA.VAN.FU ---
Vancomycin Assessment / Plan
- Assessment
Hemodialysis Schedule: MWF
Last Hemodialysis performed: Mon 01/20
WBC's are: Trending Down
In the past 24 hrs, patient has been: Afebrile
Concomitant Antimicrobials: piperacillin/tazobactam
- Dosing Plan
Dosing by Level: Hold off on dosing today
- Monitoring Plan
Random Level: 8 prior to HD
- Follow Up
Pharmacy will continue to follow.
Vancomycin Follow UP
- -
Patient Age: 83
Patient Sex: Female
Vancomycin Day #: 2
Indication: Pulmonary/Respiratory
Requesting Provider: Dr Antoine
Pertinent Antimicrobial Allergies:
NKDA
Height / Weight:
Height 5 ft 3 in
Actual Weight 58.7 kg
Pertinent Past Medical History: ESRD on HD MWF
- Vital Signs / Lab Results
Temp Pulse Resp BP Pulse Ox
98.3 F 88 29 113/60 96
01/22/24 04:24 01/22/24 07:37 01/22/24 07:37 01/22/24 06:30 01/22/24 07:38
Lab Results - Hematology
01/21/24 01/22/24
12:51 04:32
WBC 24.8 H 21.7 H
Band Neutrophils 30 H 37 H D
Lab Results - Chemistry
01/21/24 01/22/24
12:51 04:32
BUN 45 H 22 H
Creatinine 2.9 H 1.9 H
Estimated Creat Clear 19
Albumin 3.3 L 2.6 L
01/21/24 01/21/24
12:51 16:46
Lactic Acid 3.3 H 3.3 H
Lab Results - Urine
01/21/24
16:46
Urine Nitrite (Reflex) Negative
Leukocyte Esterase Rfl 2+ A
Ur Squamous Epith Cells 0-2
Microbiology Results
01/21/24 16:46 Nasal Screen MRSA (PCR) - Final
Nose Staph aureus MRSA
01/21/24 16:46 Legionella Urinary Antigen - Final
Urine Negative for Legionella pneumophila Serogroup 1 antigen.
A negative result does not rule out the possiblity of
Legionella infection due to other serogroups or species of
Legionella. Clinical correlation is recommended.
Streptococcus pneumoniae Antigen (M - Final
Negative for Streptococcus pneumoniae antigen.
A negative result does not exclude infection with
Streptococcus pneumoniae. Clinical correlation is
recommended.
01/21/24 16:15 Gram Stain - Preliminary
Sputum
01/21/24 12:51 Influenza Types A & B (DINORAH) - Final
Nasal Swab Negative for Influenza A & B, NAAT
Negative results must be combined with clinical observations
and patient history.
Nucleic Acid Amplification test (NAAT)performed on the
[employer] platform.
--- NOTE | 2024-01-22 08:42 | PTCARENOTE ---
received patient. pt [place] with hearing aid in R ear. oriented x2, L side facial droop/paralysis noted. SR on monitor with first deg AVB and PACs. Moaning loudly but not able to verbalize needs, stops when RN at bedside. high flow NC 100%, 60L in
place with SpO2 94%. NPO. riley in place, milky yellow urine noted. care ongoing.
[2024-01-22 08:44] LABS: Glycohemoglobin (HgbA1c) 5.3 % (4.0-5.6)
--- NOTE | 2024-01-22 09:19 | W.PN.HOSP.TC ---
Today's Communication/Plan
-
IV antibiotics. ID consult.
Assessment / Plan
Assessment / Plan
Physical exam:
General: Acutely ill
HEENT: Normocephalic, Atraumatic and Moist Mucous Membranes
Respiratory: Coarse crackles in both bases more pronounced on the right; Negative Wheezes or Rhonchi
Cardiac: Regular Rhythm and S1/S2, systolic murmur radiating to axilla
GI: Soft, Nontender and Nondistended
Musculoskeletal: No Clubbing, No Cyanosis and B/L Edema
Neuro: Awake, Alert and Oriented, generalized weakness but no gross neuro-deficits.
Psych: Flat affect
Echocardiogram:
LV ejection fraction is 55-60%. No regional wall motion abnormalities are seen.
Normal right ventricular size and function.
Severely dilated left atrium. Moderately dilated right atrium.
Moderate, eccentric mitral regurgitation.
No prior study available for comparison.
A/P:
Acute hypoxic respiratory failure:
Multifactorial in etiology likely pneumonia and volume overload, also underlying copd
Remains on high flow oxygen
Status post hemodialysis yesterday
Continue broad-spectrum IV antibiotics
Updated niece at bedside today
Discussed with attending RN today
Sepsis due to Staph aureus bacteremia/pneumonia:
Blood cultures positive for staph
Sputum culture positive for staph
Continue IV vancomycin
WBC 24.8---> 21.7
Lactate remains at 3.3
Legionella, strep, influenza, COVID-19 all tests negative.
Transthoracic echocardiogram reviewed
Might need to address vascular access as ?possible etiology
ID consult
Acute on chronic diastolic CHF:
Manage volume via dialysis
Transthoracic echo updated
Dysphagia:
Speech therapy evaluation and recommended to keep n.p.o.
Mental status changes:
Suspect delirium related but if any focality on exam or persistent, then would consider brain images rule out stroke or infectious embolic events.
Anemia:
Appears a combination of anemia of chronic disease mainly and iron deficiency
Continue to monitor hemoglobin closely
Hyponatremia:
Sodium 130 today
With dialysis will improve
Elevated troponin:
Elevated troponin likely due to non-ischemic myocardial injury in the setting of sepsis and end-stage renal disease
Echocardiogram reviewed and no WMA, normal EF.
Hyperglycemia:
Likely due to stress
Hemoglobin A1c 5.3
Cont low-dose insulin sliding scale
Paroxysmal atrial fibrillation:
On IV Lopressor as needed
Continue oral anticoagulants, Eliquis.
End-stage renal disease on hemodialysis:
Nephrology consult appreciated
Dialysis per nephrology
Hypotension:
On midodrine
Hypothyroidism:
Continue thyroid replacement
COPD:
No need for systemic steroids
No bronchospasm
Continue Pulmicort inhaler twice a day.
Continue DuoNebs 4 times daily
History of cardiac arrest/PEA back in November:
Invasive strategy has not been pursued due to multiple medical issues
History of probable renal artery stenosis:
Needs further investigation later down the road.
DVT prophylaxis:
Eliquis
CODE STATUS:
Full code
Total time spent on today's encounter was 52 minutes which included time spent in counseling the patient/family regarding diagnosis and treatment plan as listed above, goals of care, and symptom management. Case was discussed with nursing staff,
specialists, and care coordinators/case management. All labs and imaging personally reviewed by me. Remainder the time spent in detailed review of previous records, lab data, imaging, and other medical provider documentation.
Anticipated Discharge: > 48 hours
Subjective/Interval History
-
Date of Service: January 22, 2024
Patient still requiring significant amount of oxygen FiO2 100%. She is frail. Nurse reports periods of alertness fluctuates and attention. Afebrile today. She is able to tell me where she is at and date and why she is here in the hospital.
Objective Data
-
Labs:
Laboratory Results
01/22/24 01/22/24
01:43 04:32
WBC 21.7 H
Hgb 7.4 L
Hct 22.9 L
Plt Count 244 D
HCO3 30.8 H
Sodium 130 L
Potassium 3.6
Chloride 94 L
Carbon Dioxide 27
BUN 22 H
Creatinine 1.9 H
Glucose 138 H
Calcium 8.0 L
Total Bilirubin 0.9
AST 27
ALT 13
Alkaline Phosphatase 109
Vital Signs:
Vital Signs
Temp Pulse Resp BP Pulse Ox
98.8 F 83 22 89/53 94
01/22/24 07:36 01/22/24 08:30 01/22/24 08:30 01/22/24 08:30 01/22/24 08:00
I&O
01/21/24 01/22/24 01/23/24
06:59 06:59 06:59
Intake Total 300 / 300
Output Total 100 / 100 0 / 0
Balance 200 / 200 0 / 0
Review of Systems
-
All other systems: Reviewed and negative
--- NOTE | 2024-01-22 09:20 | W.PN.NEPH.PH ---
Today's Communication / Plan
-
Dialysis tomorrow with midodrine support
Will add as needed midodrine [id number]
Assessment/Plan
-
Impression:
Hypoxic respiratory failure
Suspected pneumonia with possible underlying congestive heart failure
End-stage renal disease (new dx within a month with suspected ATN origin following out of hospital cardiac arrest)
Hypertension
Paroxysmal A-fib
Suspected bilateral renal artery stenosis
Hypothyroidism
Anemia
Plan:
Provided dialysis in setting of respiratory failure with possible congestive heart failure component on 01/21
Patient required midodrine and apparently volume removal as outpatient has been complicated by hypotension
Will add midodrine for bp support
Orders provided HD tomorrow
Will attempt 2 kg ultrafiltration with midodrine given to augment blood pressure
Echocardiogram reviewed preserved EF but dilated left atrium
XIN will be provided for anemia of chronic kidney disease
Antibiotic therapy to cover nosocomial pneumonia,oxygen support
Blood cultures pending
Would provide 1500 cc fluid restriction re: hyponatremia in setting of ESRD, appropriate dietary sodium and potassium restrictions
Suggested to mahesh, who is a audit clerk at [employer], that in the future an MRA be considered to evaluate suspected bilateral renal artery stenosis
-
-
Date of Service: January 22, 2024
CC / HPI / ROS
-
Chief Complaint:
ESRD
History of Present Illness:
ESRD Sunday
Hemodynamically labile
Review of Systems:
Remains on oxygen support with sob
No new fevers
no chest pain
Labs
-
Labs:
WBC 21.7 10^3/uL (4.8-10.8) H 01/22/24 04:32
RBC 2.45 10^6/uL (4.20-5.40) L 01/22/24 04:32
Hgb 7.4 g/dL (12.0-16.0) L 01/22/24 04:32
Hct 22.9 % (37.0-47.0) L 01/22/24 04:32
Plt Count 244 10^3/uL (130-400) D 01/22/24 04:32
Sodium 130 mmol/L (135-145) L 01/22/24 04:32
Potassium 3.6 mmol/L (3.5-5.1) 01/22/24 04:32
Chloride 94 mmol/L (98-107) L 01/22/24 04:32
Carbon Dioxide 27 mmol/L (22-30) 01/22/24 04:32
BUN 22 mg/dl (7-17) H 01/22/24 04:32
Creatinine 1.9 mg/dL (0.6-1.0) H 01/22/24 04:32
eGFR 25.88 01/22/24 04:32
Glucose 138 mg/dl (70-99) H 01/22/24 04:32
Calcium 8.0 mg/dl (8.4-10.2) L 01/22/24 04:32
Albumin 2.6 g/dl (3.5-5.0) L 01/22/24 04:32
Physical Exam
-
Vital Signs:
Vital Signs
Temp Pulse Resp BP Pulse Ox
98.8 F 83 22 89/53 94
01/22/24 07:36 01/22/24 08:30 01/22/24 08:30 01/22/24 08:30 01/22/24 08:00
Cardiovascular:: Regular rate and rhythm
Respiratory:: Bilateral: Coarse
Lung Excursion:: Normal
Abdomen:: Nontender and Soft
Bowel Sounds:: Normal
Extremity Edema:: None: Bilateral:
Pennington Catheter: Yes
[2024-01-22] MEDS: ProAmatine 5 MG PO (10:13)
[2024-01-22 10:56] LABS: Hepatitis B Surface Antigen Negative (Negative)
--- NOTE | 2024-01-22 11:04 | PTOTSP ---
Dysphagia Evaluation
Patient is at an acute elevated risk for dysphagia and decreased breathing/swallowing coordination given need for high flow nasal cannula (50 LPM 70% FiO2), tachypnea (RR 23 at rest, to high 30's after swallowing), and increased WOB after sparing
amounts of PO. For this reason, recommend the following. Will re-evaluate as respiratory status improves. Patient may benefit from objective swallowing assessment via video swallow study when medically appropriate given concern for right sided
PNA this admission.
Recommend:
1. NPO
2. Medications whole in puree
3. Oral care 3x daily
4. Aspiration Risk Hydration Protocol - sparing single sips of water after oral care with nursing supervision/assist
5. Will continue to follow, re-evaluate swallowing function and determine if/when video swallow study appropriate.
--- NOTE | 2024-01-22 11:04 | CM ---
Addendum entered by Jean Claude Lawler 01/22/24 16:00:
Pt's niece expressed her interest in [facility]. A referral to [facility] made.
D/C plan: Preferred halfway facility for a lobsterman care with private pay and accommodation of HD treatment onsite or outpatient HD treatment.
Original Note:
CM following re: discharge planning.
Discussed in Rounds, reviewed pt's chart, met with pt and pt's niece Cyndy at bedside.
Pt is an 83 year old female, admitted with primary dx of Acute hypoxic respiratory insufficiency, requiring nonrebreather.
Per niece, pt lives alone in an apartment in [place], started HD treatment 6 months ago and was placed to [facility] 3 weeks ago. per niece, pt still has her apartment but she will not be able top live there alone. Pt's niece stated that
she and her who is MD at [facility] live in [place] and she would like to place the pt in [place] for a custodial carte with private pay. Per niece, pt was not doing any therapy due to insurance issue at [facility] and
pt was private paid there.
Per niece, she and her are looking for a halfway home with HD onsite or without and pt can be transferred to and from outpatient HD treatment. If preferred SNF does not have HD treatment onsite and is willing to accept the pt with
transporting the pt to and from HD treatment then outpatient HD treatment center needs to be set up
Pt's niece stated she is looking for a SNF on Medicare.gov website to find a preferred SNF. Also, CM is searching a SNF for a custodial care that can accommodate pt's needs.
D/C plan: snf facility for a custodial care with private pay and accommodation of HD treatment onsite or outpatient HD treatment.
CM will follow to assist pt with discharge to a preferred SNF for a custodial care.
--- NOTE | 2024-01-22 11:13 | PTCARENOTE ---
Pennington removed due to scant UOP, okayed by customer care agent
[2024-01-22] MEDS: ELIQUIS 2.5 MG PO ×2 (11:59→21:15)
[2024-01-22] MEDS: NOVOLOG FLEXPEN-MODERATE RESISTANCE 1 UNITS SC (12:17)
[2024-01-22 12:30] LABS: Glucose - Point of Care 172 mg/dl (70-99)
--- NOTE | 2024-01-22 12:42 | PTCARENOTE ---
Pt refusing PT/OT tx, refusing to sit at side of bed, raising voice to passive movement by PT. See note. Pt moved to Sport bed and CPT/vibration and percussion began. Pt appeared afraid of motion and had to bargan to 5min of tx. SpO2 925 prior and
98% after. Productive cough noted throughout tx.
--- NOTE | 2024-01-22 14:47 | CON.ID ---
Consultation
-
Date/Time Consultation Requested: January 22, 2024 1427
Date/Time Consultation Performed: January 22, 2024 1450
Requesting Provider: Dr. Smith Antoine
Performing Provider: Dr. Tere Guevara
Reason for Consultation: Bacteremia
Chief Complaint / Past History
Chief Complaint
Cough
History of Present Illness
History obtained from review medical records since patient is somewhat of a poor historian. She is a 83-year-old female who recently had cardiac arrest in November 2023 in [place]. She then developed ATN, end-stage renal disease now requiring
dialysis. Patient was recently transferred to local [facility] rehab to be closer to her daughter and son-in-law is a tableau report developer at [place] [employer]. Patient has been coughing for the past few days. She was noted to be short of breath. She was sent
to [facility] yesterday. She was hypoxic. White count of 24.8 with 30% bands. Lactic acid 3.3. Chest x-ray shows bilateral. Her admission blood cultures are now positive for MRSA. Patient reports cough productive of thick sputum. Has
shortness of breath. No fevers or chills. No diarrhea. No chest pain.
Past History
Additional Past Medical History:
ESRD on HD
HTN
Paroxysmal atrial fibrillation
Diastolic CHF
Renal artery stenosis
history of cardiorespiratory arrest (07/2023)
Hypothyroidism
Congenital left facial droop
Left Ankle fracture surgery
Allergy History:
No Known Allergies Allergy (Unverified 01/21/24 12:45)
Medications Reviewed: Yes
Current Antibiotics:
Vancomycin
Zosyn
Social History
Tobacco: Former Smoker
Alcohol: None
Drug: None
Living: Long Term
Family History
Family History: Not Pertinent
Review of Systems
Review of Systems
General: Change in Appetite; Negative Fever or Chills
HEENT: Negative Sinus Problems or Headache
Cardiovascular: Negative Chest Pain
Respiratory: Dyspnea, Cough and Sputum Production
Gasteroenterology: Other (no diarrhea); Negative Nausea or Vomiting
Endocrine: Weakness
Skin / Hair / Nails: Negative Rash
Neurological: Negative Headache or Dizziness
All systems: All other systems were reviewed and were negative
Vital Signs
Temp Pulse Resp BP Pulse Ox
98.5 F 81 19 99/51 99
01/22/24 11:40 01/22/24 14:00 01/22/24 14:00 01/22/24 14:00 01/22/24 14:00
Physical Exam
Physical Exam
Constitutional: Acutely Ill
Eyes: No Conjunctival Hemorrhage and Sclera Anicteric
Cardiovascular: Regular Rate and S1/S2
Pulmonary: Rales (bibase)
Gastrointestinal: Soft, Non Tender, Non Distended and Normal Bowel Sounds
Genito-Urinary: Negative CVA Tenderness
Extremities: Negative Edema
Neurological: Awake
Lines: CVP (Right IJ HD catheter intact)
Lab / Diagnostic Study Results
01/22/24 04:32
01/22/24 04:32
Total Counted 100 01/22/24 04:32
Abs Neuts (Manual) 18.4 10^3/uL (1.4-6.5) H 01/22/24 04:32
Segmented Neutrophils 48 % (42-75) 01/22/24 04:32
Band Neutrophils 37 % (0-3) H D 01/22/24 04:32
Lymphocytes (Manual) 8 % (20-51) L 01/22/24 04:32
Lactic Acid 3.3 mmol/L (0.7-2.0) H 01/21/24 16:46
Ur Squamous Epith Cells 0-2 /LPF (Few) 01/21/24 16:46
Microbiology Results
Micro:
01/21/24 12:51 Blood Culture - Preliminary
Blood/Venous Positive culture in progress
Gram Stain - Final
01/21/24 12:51 Blood Culture - Preliminary
Blood/Venous Staph aureus MRSA
Gram Stain - Final
01/21/24 16:15 Respiratory Culture - Preliminary
Sputum Staphylococcus aureus
Gram Stain - Preliminary
01/21/24 16:46 Urine Culture - Pending
Urine
01/21/24 16:46 Nasal Screen MRSA (PCR) - Final
Nose Staph aureus MRSA
01/21/24 16:46 Legionella Urinary Antigen - Final
Urine Negative for Legionella pneumophila Serogroup 1 antigen.
A negative result does not rule out the possiblity of
Legionella infection due to other serogroups or species of
Legionella. Clinical correlation is recommended.
Streptococcus pneumoniae Antigen (M - Final
Negative for Streptococcus pneumoniae antigen.
A negative result does not exclude infection with
Streptococcus pneumoniae. Clinical correlation is
recommended.
01/21/24 12:51 Influenza Types A & B (DINORAH) - Final
Nasal Swab Negative for Influenza A & B, NAAT
Negative results must be combined with clinical observations
and patient history.
Nucleic Acid Amplification test (NAAT)performed on the
[employer] platform.
01/21/24 CXR: moderate left and mild right lower lung findings suggesting pneumonia..
Assessment / Plan
# MRSA PNA with acute hypoxic resp failure on High flow O2
# MRSA bacteremia
# Severe sepsis
# ESRD on HD via HD catheter
- Repeat blood cultures until clear.
-TTE no gross vegetation
- Recommend remove permanent HD catheter, line holiday
- Continue Vancomycin.
- Trend wbc, bandemia, oxygen requirement
[2024-01-22 17:28] LABS: Glucose - Point of Care 136 mg/dl (70-99)
--- NOTE | 2024-01-22 21:03 | PTCARENOTE ---
- received pt from lindaakcarmen RN, assessment completed pt offers no c/o pain, tolerating percussion while in bed, pt tolerating sips of water with no issue, high flow increased to 55/100, pt has weak productive cough, needs to be encouraged to
cough out secretions.
patient very hard of hearing, but able to make needs known,
no further needs at this time, call alex and personal belongings within reach at all times.
[2024-01-23] VITALS (46 sets, daily range): BP systolic 93–129; BP diastolic 52–97; BMI 22.8
[2024-01-23 04:31] LABS: Hematocrit 24.3 % (37.0-47.0); Hemoglobin 7.9 g/dL (12.0-16.0); Mean Corp Hgb Conc. 32.5 g/dL (33.0-37.0); Mean Corpuscular Hgb 30.6 pg (27.0-31.0); Mean Corpuscular Volume 94.2 fL (81.0-99.0); Mean Platelet Volume 10.5 fL (7.4-10.4); Nucleated Red Blood Cells % 0 %; Platelet Count 251 10^3/uL (130-400); Red Blood Cell Count 2.58 10^6/uL (4.20-5.40); Red Cell Dist. Width 16.2 % (11.5-14.5); White Blood Cell Count 18.8 10^3/uL (4.8-10.8)
[2024-01-23 04:48] LABS: Vancomycin Random 7.8 ug/ml
[2024-01-23 04:55] LABS: ALT (SGPT) 14 U/L (0-35); AST (SGOT) 28 U/L (14-36); Albumin 2.6 g/dl (3.5-5.0); Alkaline Phosphatase 114 U/L (38-126); Blood Urea Nitrogen 45 mg/dl (7-17); Calcium 8.3 mg/dl (8.4-10.2); Carbon Dioxide 26 mmol/L (22-30); Chloride 93 mmol/L (98-107); Estimated Creatinine Clearance 13 ml/min; Glucose 100 mg/dl (70-99); Potassium 3.9 mmol/L (3.5-5.1); Sodium 128 mmol/L (135-145); Total Bilirubin 0.8 mg/dl (0.2-1.3); Total Protein 5.6 g/dl (6.3-8.2); eGFR 16.97
[2024-01-23] MEDS: NOVOLOG FLEXPEN-MODERATE RESISTANCE SC ×2 (06:18→06:19)
[2024-01-23] MEDS: SYNTHROID 100 MCG PO (06:25)
[2024-01-23] MEDS: ZOSYN 50 IV (06:25)
--- NOTE | 2024-01-23 06:28 | PTCARENOTE ---
01/22 pt remains sob with rest/exertion. patient wants to stop wearing hi flow and NRB mask, pt kept asking to be intubated, however was o2 sat 98%, and RR 22
patient wants famiily to intubate her today
--- NOTE | 2024-01-23 06:51 | W.PN.INTV ---
Today's Communication / Plan
Recommendations
Continue vancomycin/Zosyn
HD catheter removal, replacement given bacteremia
Continue with airway clearance measures, supportive bed
Discontinue [place]
Will obtain chest ultrasound given bacteremia, If enough fluid to be drained
Aspiration precautions, revisit speech and swallow
Restart mirtazapine
Assessment
-
83-year-old female with history of atrial fibrillation on anticoagulation, history of [id number] cardiac arrest in the past complicated by end-stage renal disease, on hemodialysis who presents with suspected bilateral patchy pneumonia,
leukocytosis, worsening hypoxia. Patient admitted to ICU for further management 01/21/2024
Acute hypoxic respiratory insufficiency
Requiring nonrebreather, transition to high flow
Bilateral infiltrates, suspected pneumonia
Leukocytosis, bandemia
Anemia
ESRD on HD (M/W/F)
Hyponatremia hyperglycemia
Mildly elevated troponin
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
Normal biventricular function
Conditions present prior to admission
Hypertension/hyperlipidemia hypothyroidism
History of OOHCA/PEA November 2023
VDRF
c/b ATN/ESRD
Aspirated tooth secondary to traumatic intubation November 2023
Required bronchoscopy with retrieval on right side
Atrial fibrillation on anticoagulation
Hx of Hypothyroidism
History of COPD
[id number] history of smoking quit 1989
Plan/recommendations
At this time, patient is critically ill, transition to high flow and 100% nonrebreather overnight.
She apparently was requesting to be intubated
However, this morning per my assessment she is somewhat improved, nonrebreather removed, currently 95% on high flow
She is can more conversant, stronger cough, able to expectorate which is encouraging
Chest x-ray with increased left pleuroparenchymal process, pleural effusion
Plan for HD today
Significant smoking history noted
Moving forward
Continue with empiric antibiotics, currently on Zosyn/vancomycin
Cultures positive for Staphylococcus in the sputum, MRSA swab and MRSA bacteremia
ID following
May require removal of HD catheter, line holiday
Interventional radiology is aware
Legionella and streptococcal pneumonia antigen negative
Continue nebulized therapy, chest percussion, sport bed, chest percussion, Acapella/incentive spirometry
Minimize any sedation
Patient cough seems to be getting stronger
Head of bed elevated, aspiration precautions
Speech and swallow evaluation, will reevaluate as she appears to be stronger today
Doubt heart failure. Echocardiogram with normal biventricular function, eccentric MR noted
Apparently had echocardiogram while in [facility] with mild to moderate MR at that time
Elevated troponins noted, trend
Abnormal UA, gram-negative bacilli noted
Bilateral pneumonia continue Zosyn/vancomycin.
Minimal urine output, likely clinically insignificant. Defer to ID
Hemodialysis continues Sunday/Sunday/Sunday
Midodrine continues per nephrology
May require intermittent fluid boluses, not requiring pressors, follow
Other etiologies to consider include thromboembolic disease but exam, leukocytosis and chest x-ray are worrisome for pneumonia
Patient did have an aspirated tooth with difficult intubation/traumatic intubation while in [facility] requiring a bronchoscopy with tooth retrieval on right side of the lung
Poor dentition is noted
Follow blood sugars
Low-dose insulin sliding scale. Hyperglycemia noted
DVT prophylaxis: Eliquis has been resumed 2.5 mg twice a day. History of atrial fibrillation noted
GI prophylaxis: Not indicated at this time
Reviewed with critical care nursing, respiratory care, pharmacy, case management
Updated son-in-law by phone/daughter. Son-in-law is diamond sander, transplant/heart failure specialist at [facility] on 01/20
Updated daughter at bedside 01/21
TCCT 31 min
Subjective Dataa
Subjective Data
Date of Service:
Date of Service: January 23, 2024
Subjective:
A patient remains critically ill, requiring nonrebreather and high flow overnight. Was feeling short of breath tonight, requesting to be intubated. Positive cultures noted, Remains on vancomycin/Zosyn. Patient appears to be less tachypneic per my
review, able to converse more consistently
Objective Data
Data Reviewed
Vital Signs / I&O / Oxygen:
Vital Signs
Temp Pulse Resp BP Pulse Ox
98.5 F 100 31 123/62 93
01/23/24 04:00 01/23/24 04:00 01/23/24 04:00 01/23/24 04:00 01/23/24 04:00
Intake and Output
01/21/24 01/22/24 01/23/24
06:59 06:59 06:59
Intake Total 300 / 300
Output Total 100 / 100 5 / 5
Balance 200 / 200 -5 / -5
SaO2 93
Nasal Cannula flow liters per 55
minute
Physical Exam
General: Comfortable (Fatigued, weak) and Other (Right anterior port)
HEENT: Normocephalic, Anicteric and Other (Left facial droop, unable to close left eyelid)
Cardiovascular: S1-S2, Regular Rhythm, Murmur (n), Rub (n) and Peripheral Edema (n)
Respiratory: Wheeze (n), Crackles (n), Rhonchi (few), Stridor (n) and Other (Decreased)
GI: Soft, Non Distended and Non Tender
Neurology: Awake (Hard of hearing, does follow some commands, weak cough), Alert and No Motor Deficits (Moving extremities)
Skin: Cyanosis (n), Jaundice (n), Rash (n) and Other (Mild pallor)
Labs/Micro/Reports
Lab Data
01/23/24 04:14
01/23/24 04:14
Microbiology
01/21/24 16:15 Sputum Respiratory Culture - Preliminary
Staphylococcus aureus
01/21/24 16:15 Sputum Gram Stain - Preliminary
01/21/24 12:51 Blood/Venous Blood Culture - Preliminary
Positive culture in progress
01/21/24 12:51 Blood/Venous Gram Stain - Final
01/21/24 12:51 Blood/Venous Blood Culture - Preliminary
Staph aureus MRSA
01/21/24 12:51 Blood/Venous Gram Stain - Final
01/21/24 16:46 Nose Nasal Screen MRSA (PCR) - Final
Staph aureus MRSA
01/21/24 16:46 Urine Legionella Urinary Antigen - Final
Negative for Legionella pneumophila Serogroup 1 antigen.
A negative result does not rule out the possiblity of
Legionella infection due to other serogroups or species of
Legionella. Clinical correlation is recommended.
01/21/24 16:46 Urine Streptococcus pneumoniae Antigen (M - Final
Negative for Streptococcus pneumoniae antigen.
A negative result does not exclude infection with
Streptococcus pneumoniae. Clinical correlation is
recommended.
01/21/24 12:51 Nasal Swab Influenza Types A & B (DINORAH) - Final
Negative for Influenza A & B, NAAT
Negative results must be combined with clinical observations
and patient history.
Nucleic Acid Amplification test (NAAT)performed on the
[employer] platform.
[2024-01-23] MEDS: DUONEB 3 ML INH ×4 (07:30→20:27)
[2024-01-23] MEDS: PULMICORT 0.5 MG INH ×2 (07:30→20:27)
--- NOTE | 2024-01-23 07:47 | PHA.VAN.FU ---
Vancomycin Assessment / Plan
- Assessment
Hemodialysis Schedule: MWF
Last Hemodialysis performed: 01/20
WBC's are: Trending Down
In the past 24 hrs, patient has been: Afebrile
Concomitant Antimicrobials: piperacillin/tazobactam
- Assessment - Therapeutic Drug Monitoring
Random Level: pre-HD = 7.8
- Dosing Plan
Dosing by Level: Re-dose today (Vanc 1000mg)
- Monitoring Plan
No level(s) ordered at this time: consider pre-HD level for Sunday
- Follow Up
Pharmacy will continue to follow.
Vancomycin Follow UP
- -
Patient Age: 83
Patient Sex: Female
Vancomycin Day #: 3
Indication: Pulmonary/Respiratory
Requesting Provider: Dr Antoine
Pertinent Antimicrobial Allergies:
NKDA
Height / Weight:
Height 5 ft 3 in
Actual Weight 58.4 kg
Pertinent Past Medical History: ESRD on HD MWF
- Vital Signs / Lab Results
Temp Pulse Resp BP Pulse Ox
98.2 F 92 22 123/62 94
01/23/24 07:20 01/23/24 07:38 01/23/24 07:38 01/23/24 04:00 01/23/24 07:38
Lab Results - Hematology
01/21/24 01/22/24 01/23/24
12:51 04:32 04:14
WBC 24.8 H 21.7 H 18.8 H
Band Neutrophils 30 H 37 H D
Lab Results - Chemistry
01/21/24 01/22/24 01/23/24
12:51 04:32 04:14
BUN 45 H 22 H 45 H
Creatinine 2.9 H 1.9 H 2.7 H
Estimated Creat Clear 19 13
Albumin 3.3 L 2.6 L 2.6 L
01/21/24 01/21/24
12:51 16:46
Lactic Acid 3.3 H 3.3 H
Microbiology Results
01/21/24 16:15 Respiratory Culture - Preliminary
Sputum Staphylococcus aureus
Gram Stain - Preliminary
01/21/24 12:51 Blood Culture - Preliminary
Blood/Venous Positive culture in progress
Gram Stain - Final
01/21/24 12:51 Blood Culture - Preliminary
Blood/Venous Staph aureus MRSA
Gram Stain - Final
01/21/24 16:46 Nasal Screen MRSA (PCR) - Final
Nose Staph aureus MRSA
01/21/24 16:46 Legionella Urinary Antigen - Final
Urine Negative for Legionella pneumophila Serogroup 1 antigen.
A negative result does not rule out the possiblity of
Legionella infection due to other serogroups or species of
Legionella. Clinical correlation is recommended.
Streptococcus pneumoniae Antigen (M - Final
Negative for Streptococcus pneumoniae antigen.
A negative result does not exclude infection with
Streptococcus pneumoniae. Clinical correlation is
recommended.
01/21/24 12:51 Influenza Types A & B (DINORAH) - Final
Nasal Swab Negative for Influenza A & B, NAAT
Negative results must be combined with clinical observations
and patient history.
Nucleic Acid Amplification test (NAAT)performed on the
[employer] platform.
Therapeutic Drug Monitoring
Random Vancomycin 7.8 ug/ml 01/23/24 04:14
[2024-01-23 08:10] LABS: Absolute Neutrophils -Man Diff 15.9 10^3/uL (1.4-6.5); Band Neutrophils 27 % (0-3); Hypochromasia 1+; Lymphocytes 9 % (20-51); Metamyelocytes 2 % (-); Monocytes 3 % (2-9); Myelocytes 1 % (-); Normal RBC Morphology No; Platelets Checked Yes; Polychromasia Slight; Segmented Neutrophils 58 % (42-75); Total Cells Counted 100
[2024-01-23] MEDS: ProAmatine 5 MG PO (08:13)
--- NOTE | 2024-01-23 08:43 | W.PN.HOSP.TC ---
Addendum entered and electronically signed by Smith Antoine MD 01/23/24 12:49:
Acute hypoxic respiratory failure, POA. Patient hypoxic with less than 91% on room air requiring high flow oxygen and also tachypneic and shortness of breath and dyspneic.
Original Note:
Today's Communication/Plan
-
Continue high flow oxygen. Continue IV antibiotics. HD catheter removal. Repeat cultures.
Assessment / Plan
Assessment / Plan
Physical exam:
General: Acutely ill
HEENT: Normocephalic, Atraumatic and Moist Mucous Membranes
Respiratory: Coarse crackles in both bases more pronounced on the right; Negative Wheezes or Rhonchi
Cardiac: Regular Rhythm and S1/S2, systolic murmur radiating to axilla
GI: Soft, Nontender and Nondistended
Musculoskeletal: No Clubbing, No Cyanosis and B/L Edema
Neuro: Awake, Alert and Oriented, generalized weakness but no gross neuro-deficits.
Psych: Flat affect
Echocardiogram:
LV ejection fraction is 55-60%. No regional wall motion abnormalities are seen.
Normal right ventricular size and function.
Severely dilated left atrium. Moderately dilated right atrium.
Moderate, eccentric mitral regurgitation.
No prior study available for comparison.
A/P:
Acute hypoxic respiratory failure:
Multifactorial in etiology likely pneumonia and volume overload, also underlying copd
Remains on high flow oxygen
HD per renal
Continue broad-spectrum IV antibiotics
Updated niece at bedside yesterday
Sepsis due to Staph aureus bacteremia/pneumonia/?UTI:
Blood cultures positive for staph--> repeat blood cultures today
Obtain culture from tip of the catheter as well
Sputum culture positive for staph
Continue IV vancomycin
Urine cultures with gram-negative megan
WBC 24.8---> 18.8
Lactate remains at 3.3
Legionella, strep, influenza, COVID-19 all tests negative.
Transthoracic echocardiogram reviewed
Might need to address removing HD access as line holiday--> plan to remove HD catheter today after hemodialysis and IR consulted for temporary.
ID consult appreciated
Acute on chronic diastolic CHF:
Manage volume via dialysis
Transthoracic echo updated
Dysphagia:
Speech therapy evaluation and recommended to keep n.p.o.
Mental status changes:
Suspect delirium related but if any focality on exam or persistent, then would consider brain images rule out stroke or infectious embolic events.
Anemia:
Appears a combination of anemia of chronic disease mainly and iron deficiency
Continue to monitor hemoglobin closely
Hyponatremia:
Sodium 128 today
With dialysis will improve
Elevated troponin:
Elevated troponin likely due to non-ischemic myocardial injury in the setting of sepsis and end-stage renal disease
Echocardiogram reviewed and no WMA, normal EF.
Hyperglycemia:
Likely due to stress
Hemoglobin A1c 5.3
Cont low-dose insulin sliding scale
Paroxysmal atrial fibrillation:
On IV Lopressor as needed
Continue oral anticoagulants, Eliquis.
End-stage renal disease on hemodialysis:
Nephrology consult appreciated
Dialysis per nephrology
Hypotension:
On midodrine
Hypothyroidism:
Continue thyroid replacement
COPD:
No need for systemic steroids
No bronchospasm
Continue Pulmicort inhaler twice a day.
Continue DuoNebs 4 times daily
History of cardiac arrest/PEA back in November:
Invasive strategy has not been pursued due to multiple medical issues
History of probable renal artery stenosis:
Needs further investigation later down the road.
DVT prophylaxis:
Eliquis
CODE STATUS:
Full code
Total time spent on today's encounter was 52 minutes which included time spent in counseling the patient/family regarding diagnosis and treatment plan as listed above, goals of care, and symptom management. Case was discussed with nursing staff,
specialists, and care coordinators/case management. All labs and imaging personally reviewed by me. Remainder the time spent in detailed review of previous records, lab data, imaging, and other medical provider documentation.
Anticipated Discharge: > 48 hours
Subjective/Interval History
-
Date of Service: January 23, 2024
Patient still on high flow oxygen. Alert, hard of hearing. Afebrile.
Objective Data
-
Labs:
Laboratory Results
01/23/24
04:14
WBC 18.8 H
Hgb 7.9 L
Hct 24.3 L
Plt Count 251
Sodium 128 L
Potassium 3.9
Chloride 93 L
Carbon Dioxide 26
BUN 45 H
Creatinine 2.7 H
Glucose 100 H
Calcium 8.3 L
Total Bilirubin 0.8
AST 28
ALT 14
Alkaline Phosphatase 114
Vital Signs:
Vital Signs
Temp Pulse Resp BP Pulse Ox
98.2 F 97 22 127/66 94
01/23/24 07:20 01/23/24 08:13 01/23/24 07:38 01/23/24 08:13 01/23/24 07:38
I&O
01/22/24 01/23/24 01/24/24
06:59 06:59 06:59
Intake Total 300 / 300
Output Total 100 / 100 5 / 5
Balance 200 / 200 -5 / -5
[2024-01-23] MEDS: RETACRIT 10000 UNITS IV (08:51)
--- NOTE | 2024-01-23 09:00 | PTCARENOTE ---
Rec'd pt at 0800 awake resting in bed with HD ready to start. Midodrine 5 mg po given in applesauce as ordered. Pt is awake and alert- no really conversing this morning but is reading noted written to her. Denies pain. 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
without her hearing aid is essentially deaf- very [place]. [place]. Skin is wm and dry. Respirs- rec'd pt on just High FLow 55L/100% with sats of 98-99%. Respirs are shallow and tachypnic but not overly labored. BS are coarse thoughout and decreased at the
bases. Coughing a moist-sometimes prod cough for tannish secretions but needs the [place] to get the secretions out. + cough and gag. Monitor SR with 1st'avb and frequent PAC's. + pulses. No edema. VS as documented. ABd is soft with + BS. NPO
currently except for meds in applesauce. Anuric. Capped ints intact LAC and R wrist. R chest HD cath site wnl. Pt repositioned and mouth care given. Call alex in reach.
--- NOTE | 2024-01-23 09:30 | PN.CDI ---
CDI
- -
CDI:
Physician Documentation Request
Admit Date: 01/21/24 14:56
Dear Doctor Antoine,
Patient admitted with pneumonia and heart failure.
01/21 Life Insurance Sales Agent PN: 'Acute hypoxic respiratory insufficiency. Requiring nonrebreather, transition to high flow...patient is critically ill'
01/21 Hospitalist PN: 'Acute hypoxic respiratory failure: Multifactorial in etiology likely pneumonia and volume overload, also underlying copd. Remains on high flow oxygen...Patient still requiring significant amount of oxygen FiO2 100%.'
Clarify which of the following accurately represents the patient's respiratory status:
Acute hypoxic respiratory failure
Acute hypoxic respiratory insufficiency
Other
Additional information for Respiratory Failure:
Recognized criteria for Respiratory Failure (Source: [facility] Jul 2013)
ABGs: (1 or more) Symptoms Please indicate type if known
1. p)2 <60 or RA SPO2 <91% on RA 1. Tachypnea, SOB, dyspnea Hypoxic
2. pCO2 50 and pH <7.35 2. Use of accessory muscles Hypercapnic
3. pO2 decrease of pCO2 increase by 3. Pallor or cyanosis Hypoxic and Hypercapnic
10 mmHg from baseline if known 4. Anxiety or restlessness Unable to determine
5. Unable to speak in full sentences
Supplemental O2 of > 40% (5LPM) Intubation is not required
Use of terms such as suspected, likely, concern for, or probable (associated with a specific diagnosis that is being evaluated, monitored, or treated as if it exists) are acceptable and can be coded in the inpatient setting, when documented at the
time of discharge.
Thank you,
Mia Christianson RN, BSN
CDI Specialist
Available via [place] text
Please use your independent medical judgment in providing your response.
--- NOTE | 2024-01-23 09:55 | W.PN.NEPH.PH ---
Today's Communication / Plan
-
removal of HD line after HD today
Assessment/Plan
-
Impression:
Hypoxic respiratory failure
Suspected pneumonia with possible underlying congestive heart failure
End-stage renal disease (new dx within a month with suspected ATN origin following out of hospital cardiac arrest)
Hypertension
Paroxysmal A-fib
Suspected bilateral renal artery stenosis
Hypothyroidism
Anemia
Plan:
HD today
with MRSA bacteremia and PNA, plan to remove HD catheter today, appt ID input
send catheter tip to culture and plan place temp HD catheter after line holiday
cont midodrine support for BPs on HD
apparently volume removal as outpatient has been complicated by hypotension
Echocardiogram reviewed preserved EF, mod MR
XIN will be provided for anemia of chronic kidney disease
Antibiotic therapy per ID, remains on high flow
renal diet and FR 1200 cc/day
on 01/20 Dr London spoke with mahesh, who is a exchange clerk at [employer], that in the future an MRA be considered to evaluate suspected bilateral renal artery stenosis
-
-
Date of Service: January 23, 2024
CC / HPI / ROS
-
Chief Complaint:
ESRD
History of Present Illness:
ESRD MWF at [facility]
Hemodynamically labile with out pressors
hb low 7.9, WBC better at 18k
sodium low 128, cr increases pre HD and anuria
Review of Systems:
Remains on oxygen support with productive cough
NPO concern of aspiration, speech to see her
No new fevers
offers no sob at rest
Labs
-
Labs:
WBC 18.8 10^3/uL (4.8-10.8) H 01/23/24 04:14
RBC 2.58 10^6/uL (4.20-5.40) L 01/23/24 04:14
Hgb 7.9 g/dL (12.0-16.0) L 01/23/24 04:14
Hct 24.3 % (37.0-47.0) L 01/23/24 04:14
Plt Count 251 10^3/uL (130-400) 01/23/24 04:14
Sodium 128 mmol/L (135-145) L 01/23/24 04:14
Potassium 3.9 mmol/L (3.5-5.1) 01/23/24 04:14
Chloride 93 mmol/L (98-107) L 01/23/24 04:14
Carbon Dioxide 26 mmol/L (22-30) 01/23/24 04:14
BUN 45 mg/dl (7-17) H 01/23/24 04:14
Creatinine 2.7 mg/dL (0.6-1.0) H 01/23/24 04:14
eGFR 16.97 01/23/24 04:14
Glucose 100 mg/dl (70-99) H 01/23/24 04:14
Calcium 8.3 mg/dl (8.4-10.2) L 01/23/24 04:14
Albumin 2.6 g/dl (3.5-5.0) L 01/23/24 04:14
Physical Exam
-
Vital Signs:
Vital Signs
Temp Pulse Resp BP Pulse Ox
98.2 F 97 22 127/66 94
01/23/24 07:20 01/23/24 08:13 01/23/24 07:38 01/23/24 08:13 01/23/24 07:38
Cardiovascular:: Regular rate and rhythm
Respiratory:: Bilateral: Coarse
Lung Excursion:: Abnormal
Abdomen:: Nontender and Soft
Extremity Edema:: None: Bilateral:
Penning[place] Catheter: No
--- NOTE | 2024-01-23 10:03 | W.PN.NEPH.HD ---
Assessment
-
pt seen during HD
vitals stable on midodrine
high dose XIN
plan removal of HD catheter today
communicated with pt through writing since she is very [place]
Progress Note - Hemodialysis
-
Date of Service: January 23, 2024
Duration: 30 minutes and 3 hours
Potassium Bath: 3
Calcium Bath: 2.5
Opti-Dialyzer: 160
Ultrafiltration: Other (2kg)
Blood Flow: 400
Dialysate Flow: 600
Heparin: no
EPO: [id number]
[2024-01-23] MEDS: VANCOCIN 200 IV (10:17)
--- NOTE | 2024-01-23 11:10 | PTCARENOTE ---
Remains on HD- Overall sats have been good on just Hi Flow 55L/100% with sats of 97%. Pt appears comfortable and no complaints. Resp therapy in and O2 decreased to 50L/80% with sats of 98%.
[2024-01-23] MEDS: HEPARIN 3200 UNITS INTRACATH (11:25)
[2024-01-23] MEDS: ELIQUIS 2.5 MG PO ×2 (12:16→20:22)
--- NOTE | 2024-01-23 13:00 | PTCARENOTE ---
HD has been completed. Pt remains awake. Is able to talk but doesn't talk much- just nods head and gestures. Apparently her hearing aid does not work and pt does not want it in making her basically deaf. Is able to read lips to some extent and
understands writing and gestures. Denies pain. Has tolerated less High FLow and is currently on 50L and 70% with sats of 96%. Pt percussed. Turned and repositioned. Complete CHG bath given. Family at the bedside.
--- NOTE | 2024-01-23 13:13 | W.PN.ID1 ---
Date of Service
Date of Service: January 23, 2024
Today's Communication
See below.
Assessment / Plan
# MRSA PNA with acute hypoxic resp failure on High flow O2
# MRSA bacteremia
# Severe sepsis
# ESRD on HD via HD catheter
- Repeat blood cultures until clear.
-TTE no gross vegetation
- To dc HD catheter today.
- Continue Vancomycin.
- Trend wbc, bandemia, oxygen requirement
# GNR bacteruria vs UTI
- Narrow Zosyn to cefepime for now
# Additional Past Medical History:
ESRD on HD
HTN
Paroxysmal atrial fibrillation
Diastolic CHF
Renal artery stenosis
history of cardiorespiratory arrest (07/2023)
Hypothyroidism
Congenital left facial droop
Left Ankle fracture surgery
Chief Complaint
-: Bacteremia
Subjective / Review of Systems
No new complaints. Still coughing.
Vital Signs / Physical Exam
Vital Signs
Vital Signs
Temp Pulse Resp BP Pulse Ox
97.4 F 97 27 124/72 95
01/23/24 11:07 01/23/24 11:00 01/23/24 11:00 01/23/24 11:00 01/23/24 13:00
Physical Exam
Constitutional: No Acute Distress
Cardiovascular: Regular Rate
Pulmonary: Other (decreased BS bases)
Gastrointestinal: Soft, Non Tender and Non Distended
Genito-Urinary: Negative CVA Tenderness
Extremities: Negative Edema
Neurological: Awake and Alert
Objective Data
Lab Data
Lab Results
01/23/24 04:14
01/23/24 04:14
Estimated Creat Clear 13 ml/min 01/23/24 04:14
Lactic Acid 3.3 mmol/L (0.7-2.0) H 01/21/24 16:46
Total Bilirubin 0.8 mg/dl (0.2-1.3) 01/23/24 04:14
AST 28 U/L (14-36) 01/23/24 04:14
ALT 14 U/L (0-35) 01/23/24 04:14
Alkaline Phosphatase 114 U/L (38-126) 01/23/24 04:14
Most recent labs reviewed.
Micro Results:
01/21/24 16:15 Respiratory Culture - Final
Sputum Staph aureus MRSA
Gram Stain - Final
01/21/24 16:46 Urine Culture - Preliminary
Urine Gram negative bacilli
01/21/24 12:51 Blood Culture - Preliminary
Blood/Venous Staph aureus MRSA
Gram Stain - Final
01/21/24 12:51 Blood Culture - Preliminary
Blood/Venous Staph aureus MRSA
Gram Stain - Final
01/23/24 04:14 Blood Culture - Pending
Blood/Venous
01/23/24 04:14 Blood Culture - Pending
Blood/Venous
01/21/24 16:46 Nasal Screen MRSA (PCR) - Final
Nose Staph aureus MRSA
01/21/24 16:46 Legionella Urinary Antigen - Final
Urine Negative for Legionella pneumophila Serogroup 1 antigen.
A negative result does not rule out the possiblity of
Legionella infection due to other serogroups or species of
Legionella. Clinical correlation is recommended.
Streptococcus pneumoniae Antigen (M - Final
Negative for Streptococcus pneumoniae antigen.
A negative result does not exclude infection with
Streptococcus pneumoniae. Clinical correlation is
recommended.
01/21/24 12:51 Influenza Types A & B (DINORAH) - Final
Nasal Swab Negative for Influenza A & B, NAAT
Negative results must be combined with clinical observations
and patient history.
Nucleic Acid Amplification test (NAAT)performed on the
[employer] platform.
01/21/24 CXR: moderate left and mild right lower lung findings suggesting pneumonia..
--- NOTE | 2024-01-23 13:20 | PTCARENOTE ---
Speech therapy in to see pt and continued same recommendations of NPO with meds in applesauce and few sips and single ice chips.
--- NOTE | 2024-01-23 14:06 | CM ---
CM following re: discharge planning.
Discussed in Rounds, reviewed pt's chart, met with pt and pt's niece Cyndy at bedside. Per Rounds meeting, HD today, HD catheter removal, replacement, requires 50 L HFNC with FIO2 70%, continue supportive care.
Pt's niece stated she is looking for a possibility to tour [facility] and [facility] that both locate very close to where she lives. Pt's niece stated she will tour both SNFs to decide.
CM will set up outpatient HD treatment when a SNF admission confirmed
D/C plan: Preferred SNF with outpatient HD treatment in [facility].
CM will follow with discharge plan updates as hospitalization progresses
--- NOTE | 2024-01-23 14:26 | PN.IRAD.UPD ---
Update Note - IRAD
- -
went bedside at 1400 to remove patient's right sided tunneled HD catheter. cleaned, draped, and prepped the patient. no complaints from patient, dressed with a primapore and gave nurse Eulalia the cultured tip.
--- NOTE | 2024-01-23 14:49 | PTCARENOTE ---
Remains awake visiting with family. Tolerating High Flow 70%, 50 L with sats of 97%. IR in around 1400 and removed R Chest HD removed. Dressing over site is D+I. Tip sent for culture. Currently US in to do US of the L chest. Will continue to monitor
[2024-01-23] MEDS: STERILE WATER FOR INJECTION 10 ML IV (14:51)
[2024-01-23] MEDS: MAXIPIME 1000 MG IV (14:51)
[2024-01-23] MEDS: FLUSH (NSS) 1 FLUSH IV (14:52)
--- NOTE | 2024-01-23 15:35 | PTCARENOTE ---
High Flow decreased to 50L/60%. Sats are 95%. ROM done with pt.
--- NOTE | 2024-01-23 16:42 | PTCARENOTE ---
Remains awake but tired. Family at the bedside. BS remain coarse. Coughing a moist sometimes prod cough with oropharyngeal suctioning for thick tannish secretions. Tolerating High Flow 50L/60%. VS as documented. Anuric. Repositioned. SKin and mouth
care given. Of note- tongue has whitish patches- Dr. Tanner made aware and Nystatin ordered. Denies pain.
[2024-01-23] MEDS: MYCOSTATIN ORAL SUSPENSION 5 ML PO ×2 (17:48→23:29)
[2024-01-23] MEDS: REMERON 7.5 MG PO (21:04)
--- NOTE | 2024-01-23 21:44 | PTCARENOTE ---
received patient from [facility]. pt saying she cant stay here if shes not allowed to eat or drink anything. pt anxious and forgetful ringing the call alex often for the same reason. remains on high flow 50L 60%. NS on the monitor. took pills whole in
apple sauce.
[2024-01-23 23:50] LABS: Glucose - Point of Care 136 mg/dl (70-99)
[2024-01-24] VITALS (30 sets, daily range): BP systolic 96–127; BP diastolic 52–77; BMI 22.7
[2024-01-24 04:38] LABS: % Basophils 0.3 % (0-2); % Immature Granulocytes 7.2 % (0-0.5); % Lymphocytes 9.7 % (20.5-51.1); % Monocytes 3.9 % (1.7-9.3); % Neutrophils 78.9 % (42.2-75.2); Absolute Basophils 0.1 10^3/uL (0-0.2); Absolute Immature Granulocytes 1.3 10^3/uL (0-0.05); Absolute Lymphocytes 1.8 10^3/uL (1.2-3.4); Absolute Monocytes 0.7 10^3/uL (0.1-0.6); Absolute Neutrophils 14.6 10^3/uL (1.4-6.5); Mean Corp Hgb Conc. 32.5 g/dL (33.0-37.0); Mean Corpuscular Volume 92.4 fL (81.0-99.0); Mean Platelet Volume 9.9 fL (7.4-10.4); Nucleated Red Blood Cells % 0.1 %; Platelet Count 228 10^3/uL (130-400); Red Blood Cell Count 2.23 10^6/uL (4.20-5.40); Red Cell Dist. Width 15.9 % (11.5-14.5); White Blood Cell Count 18.5 10^3/uL (4.8-10.8)
[2024-01-24 04:51] LABS: Hematocrit 20.6 % (37.0-47.0); Hemoglobin 6.7 g/dL (12.0-16.0)
[2024-01-24 05:08] LABS: Blood Urea Nitrogen 31 mg/dl (7-17); Carbon Dioxide 26 mmol/L (22-30); Chloride 95 mmol/L (98-107); Estimated Creatinine Clearance 16 ml/min; Glucose 123 mg/dl (70-99); Sodium 129 mmol/L (135-145)
[2024-01-24] MEDS: KCL ELIXIR 40 MEQ PO (06:27)
[2024-01-24] MEDS: SYNTHROID 100 MCG PO (06:27)
[2024-01-24] MEDS: MYCOSTATIN ORAL SUSPENSION 5 ML PO ×4 (06:27→23:24)
--- NOTE | 2024-01-24 06:54 | W.PN.INTV ---
Addendum entered and electronically signed by Odessa Tanner MD 01/24/24 15:29:
Patient transferred to IMU. Pulmonary will continue to follow
Original Note:
Today's Communication / Plan
Recommendations
Intermittent rapid A-fib noted
Lopressor as needed
Transfuse, follow hemoglobin
Received potassium this morning, follow
HD catheter removed
Continue antibiotics
Discontinue Pennington
Assessment
-
83-year-old female with history of atrial fibrillation on anticoagulation, history of [id number] cardiac arrest in the past complicated by end-stage renal disease, on hemodialysis who presents with suspected bilateral patchy pneumonia,
leukocytosis, worsening hypoxia. Patient admitted to ICU for further management 01/21/2024
Acute hypoxic respiratory insufficiency
Requiring nonrebreather, transition to high flow
Bilateral infiltrates, suspected pneumonia
Leukocytosis, bandemia
Anemia
ESRD on HD (M/W/F)
Hyponatremia hyperglycemia
Mildly elevated troponin
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
Normal biventricular function
Intermittent tachycardia, atrial fibrillation
Conditions present prior to admission
Hypertension/hyperlipidemia hypothyroidism
History of OOHCA/PEA November 2023
VDRF
c/b ATN/ESRD
Aspirated tooth secondary to traumatic intubation November 2023
Required bronchoscopy with retrieval on right side
Atrial fibrillation on anticoagulation
Hx of Hypothyroidism
History of COPD
[id number] history of smoking quit 1989
Plan/recommendations
At this time, patient i appears to be overall improved, has been weaned down off nonrebreather, high flow continues to be weaned, down to 60%
Appears more comfortable, less use of accessory muscles
Tachycardia noted, heart rate varies from 80s to 140s
Chest ultrasound without significant fluid for thoracentesis
Status post HD 01/22
Significant smoking history noted
Moving forward
Continue with empiric antibiotics, currently on Zosyn/vancomycin
Cultures positive for Staphylococcus in the sputum, MRSA swab and MRSA bacteremia
Echocardiogram without evidence of vegetation
ID following
HD catheter removed 01/23/2024
Legionella and streptococcal pneumonia antigen negative
Abnormal UA noted but end-stage renal disease noted
Continue nebulized therapy, chest percussion, sport bed, chest percussion, Acapella/incentive spirometry
Minimize any sedation
Patient cough seems to be getting stronger
Head of bed elevated, aspiration precautions
Speech and swallow evaluation, will reevaluate as she appears to be stronger today
Doubt heart failure. Echocardiogram with normal biventricular function, eccentric MR noted
Apparently had echocardiogram while in [facility] with mild to moderate MR at that time
Elevated troponins noted, trend
Atrial fibrillation with rapid rates at times, patient appears to be without symptoms
Lopressor as needed
Hemodialysis continues Sunday/Sunday/Sunday
Midodrine continues per nephrology
May require intermittent fluid boluses, not requiring pressors, follow
Replete potassium
Patient did have an aspirated tooth with difficult intubation/traumatic intubation while in [facility] requiring a bronchoscopy with tooth retrieval on right side of the lung
Poor dentition is noted
Follow blood sugars
Low-dose insulin sliding scale. Hyperglycemia noted
DVT prophylaxis: Eliquis has been resumed 2.5 mg twice a day. History of atrial fibrillation noted
GI prophylaxis: Not indicated at this time
Reviewed with critical care nursing, respiratory care, pharmacy, case management
TCCT 31 min
Subjective Dataa
Subjective Data
Date of Service:
Date of Service: January 24, 2024
Subjective:
Patient appears to be comfortable, tolerating chest percussion, sport bed. Examined earlier this morning. Hemoglobin noted, transfusion ordered. No evidence of active bleeding. Heart rate does vary from 80s to 140s. Patient appears to be more
comfortable from respiratory standpoint
Objective Data
Data Reviewed
Vital Signs / I&O / Oxygen:
Vital Signs
Temp Pulse Resp BP Pulse Ox
97.5 F 98 16 118/56 95
01/24/24 05:59 01/24/24 06:00 01/24/24 06:00 01/24/24 06:00 01/24/24 06:00
Intake and Output
01/22/24 01/23/24 01/24/24
06:59 06:59 06:59
Intake Total 300 / 300 70 / 70
Output Total 100 / 100 5 / 5 0 / 0
Balance 200 / 200 -5 / -5 70 / 70
SaO2 95
Nasal Cannula flow liters per 50
minute
Physical Exam
General: Comfortable (Fatigued, weak) and Other (Right anterior port)
HEENT: Normocephalic, Anicteric and Other (Left facial droop, unable to close left eyelid)
Cardiovascular: S1-S2, Irregular Rhythm, Murmur (n), Rub (n) and Peripheral Edema (n)
Respiratory: Wheeze (n), Crackles (n), Rhonchi (few), Stridor (n) and Other (Decreased)
GI: Soft, Non Distended and Non Tender
Neurology: Awake (Hard of hearing, does follow some commands, weak cough), Alert and No Motor Deficits (Moving extremities, following commands, reads lips)
Skin: Cyanosis (n), Jaundice (n), Rash (n) and Other (Mild pallor)
Labs/Micro/Reports
Lab Data
01/24/24 04:26
Microbiology
01/23/24 04:14 Blood/Venous Blood Culture - Preliminary
No Growth in 24 hours- Final report to follow
01/23/24 04:14 Blood/Venous Blood Culture - Preliminary
No Growth in 24 hours- Final report to follow
01/21/24 12:51 Blood/Venous Blood Culture - Preliminary
Staph aureus MRSA
01/21/24 12:51 Blood/Venous Gram Stain - Final
01/21/24 16:15 Sputum Respiratory Culture - Final
Staph aureus MRSA
01/21/24 16:15 Sputum Gram Stain - Final
01/21/24 16:46 Urine Urine Culture - Preliminary
Gram negative bacilli
01/21/24 12:51 Blood/Venous Blood Culture - Preliminary
Staph aureus MRSA
01/21/24 12:51 Blood/Venous Gram Stain - Final
01/21/24 16:46 Nose Nasal Screen MRSA (PCR) - Final
Staph aureus MRSA
01/21/24 16:46 Urine Legionella Urinary Antigen - Final
Negative for Legionella pneumophila Serogroup 1 antigen.
A negative result does not rule out the possiblity of
Legionella infection due to other serogroups or species of
Legionella. Clinical correlation is recommended.
01/21/24 16:46 Urine Streptococcus pneumoniae Antigen (M - Final
Negative for Streptococcus pneumoniae antigen.
A negative result does not exclude infection with
Streptococcus pneumoniae. Clinical correlation is
recommended.
01/21/24 12:51 Nasal Swab Influenza Types A & B (DINORAH) - Final
Negative for Influenza A & B, NAAT
Negative results must be combined with clinical observations
and patient history.
Nucleic Acid Amplification test (NAAT)performed on the
[employer] platform.
[2024-01-24] MEDS: PULMICORT 0.5 MG INH ×2 (07:24→19:45)
[2024-01-24] MEDS: DUONEB 3 ML INH ×4 (07:24→19:45)
[2024-01-24] MEDS: ELIQUIS 2.5 MG PO (08:12)
--- NOTE | 2024-01-24 08:30 | PHA.VAN.FU ---
Vancomycin Assessment / Plan
- Assessment
Hemodialysis Schedule: MWF
Last Hemodialysis performed: 01/22
WBC's are: Stable
In the past 24 hrs, patient has been: Afebrile
Concomitant Antimicrobials: cefepime
- Dosing Plan
Dosing by Level: Hold off on dosing today
- Monitoring Plan
Random Level: 01/24 prior to HD
- Follow Up
Pharmacy will continue to follow.
Vancomycin Follow UP
- -
Patient Age: 83
Patient Sex: Female
Vancomycin Day #: 4
Indication: Pulmonary/Respiratory
Requesting Provider: Dr Antoine
Pertinent Antimicrobial Allergies:
NKDA
Height / Weight:
Height 5 ft 3 in
Actual Weight 58.1 kg
Pertinent Past Medical History: ESRD on HD MWF
- Vital Signs / Lab Results
Temp Pulse Resp BP Pulse Ox
98.9 F 94 17 124/64 94
01/24/24 08:08 01/24/24 08:00 01/24/24 08:00 01/24/24 08:00 01/24/24 08:00
Lab Results - Hematology
01/21/24 01/22/24 01/23/24
12:51 04:32 04:14
WBC 24.8 H 21.7 H 18.8 H
Band Neutrophils 30 H 37 H D 27 H D
01/24/24
04:26
WBC 18.5 H
Band Neutrophils
Lab Results - Chemistry
01/21/24 01/22/24 01/23/24
12:51 04:32 04:14
BUN 45 H 22 H 45 H
Creatinine 2.9 H 1.9 H 2.7 H
Estimated Creat Clear 19 13
Albumin 3.3 L 2.6 L 2.6 L
01/24/24
04:26
BUN 31 H
Creatinine 2.2 H
Estimated Creat Clear 16
Albumin
01/21/24 01/21/24
12:51 16:46
Lactic Acid 3.3 H 3.3 H
Lab Results - Urine
01/21/24
16:46
Urine Nitrite (Reflex) Negative
Leukocyte Esterase Rfl 2+ A
Ur Squamous Epith Cells 0-2
Microbiology Results
01/23/24 04:14 Blood Culture - Preliminary
Blood/Venous Positive culture in progress
Gram Stain - Preliminary
01/23/24 04:14 Blood Culture - Preliminary
Blood/Venous Positive culture in progress
Gram Stain - Preliminary
01/21/24 12:51 Blood Culture - Preliminary
Blood/Venous Staph aureus MRSA
Gram Stain - Final
01/21/24 16:15 Respiratory Culture - Final
Sputum Staph aureus MRSA
Gram Stain - Final
01/21/24 16:46 Urine Culture - Preliminary
Urine Gram negative bacilli
01/21/24 12:51 Blood Culture - Preliminary
Blood/Venous Staph aureus MRSA
Gram Stain - Final
Therapeutic Drug Monitoring
Random Vancomycin 7.8 ug/ml 01/23/24 04:14
[2024-01-24] MEDS: LOPRESSOR 5 MG IV (08:41)
[2024-01-24] MEDS: FLUSH (NSS) 2 FLUSH IV (08:42)
--- NOTE | 2024-01-24 09:00 | PTCARENOTE ---
Addendum entered by Eulalia Guzman RN 01/24/24 12:15:
Note should reflect 40L/60% High FLow
Original Note:
Rec'd pt at 0730 resting in bed. Initially dozing but does awaken to tactile stimuli. Remains essentially deaf without her hearing aid which her niece is going to be taking to an earth science teacher today. Is able to talk but talking most of the time is
limited. Writing notes to communicate with pt and pt not having difficulty reading the notes. Denies pain. Skin is pale pink wm and dry. Foam dressing replaced on MASD on buttocks. No drainage. Respirs- Decreased this am to 40L/60% midlflow and sats
have been 92-94%. BS are mostly just coarse and decreased at the bases this am. Continues to cough a moist sometimes prod cough for thick tannish secretions. Overall is shallow and tachypnic in the 20's but non-labored. Monitor SR with 1st'avb and
PAC's -initially with rates in the 90-105 range then at 0815 HR went up to the 140's after swallowing meds-however no coughing with meds. Stayed sustained in the 140-142 range. ECG done to check rhythm- Stach. Dr. Tanner aware. Lopressor 5 mg IV
given at 0840 and HR down to 98-106 range. SR with freq PAC's. Denies chest pain. + pulses. No edema. KH SCD's. Abd is soft with + hypoactive BS. No stool. Meds given in applesauce with few sips of water after otherwise NPO. Anuric. Rec'd pt with 1
unit PRBC's given- PRBC's completed at 0740. Capped ints intact R wrist and LAC. Complete CHG bath and mouth care given. Repositioned. Pt on rotation mattress and percussion and vibration done. Call alex in reach. Pt made aware of plan of care.
--- NOTE | 2024-01-24 09:05 | W.PN.ID1 ---
Date of Service
Date of Service: January 24, 2024
Today's Communication
Continue abx's.
Assessment / Plan
# MRSA PNA with acute hypoxic resp failure on High flow O2
# MRSA bacteremia (4 sets bcx's to date)
# Severe sepsis
Leukocytosis stable
# ESRD on HD via HD catheter
- Repeat blood cultures until clear.
-TTE no gross vegetation
- 01/22 HD catheter dc'd, tip cx pending
- Continue Vancomycin.
- Trend wbc, oxygen requirement
# GNR bacteruria vs UTI
- Continue cefepime for now
# Additional Past Medical History:
ESRD on HD
HTN
Paroxysmal atrial fibrillation
Diastolic CHF
Renal artery stenosis
history of cardiorespiratory arrest (07/2023)
Hypothyroidism
Congenital left facial droop
Left Ankle fracture surgery
Chief Complaint
-: Bacteremia
Subjective / Review of Systems
Cough better.
Vital Signs / Physical Exam
Vital Signs
Vital Signs
Temp Pulse Resp BP Pulse Ox
98.9 F 141 17 119/70 94
01/24/24 08:08 01/24/24 08:41 01/24/24 08:00 01/24/24 08:41 01/24/24 08:00
Physical Exam
Constitutional: No Acute Distress
Cardiovascular: Irregular Rate and S1/S2
Gastrointestinal: Soft, Non Tender and Non Distended
Genito-Urinary: Negative Pennington
Extremities: Negative Edema
Neurological: AO x 3
Objective Data
Lab Data
Lab Results
01/24/24 04:26
Estimated Creat Clear 16 ml/min 01/24/24 04:26
Lactic Acid 3.3 mmol/L (0.7-2.0) H 01/21/24 16:46
Total Bilirubin 0.8 mg/dl (0.2-1.3) 01/23/24 04:14
AST 28 U/L (14-36) 01/23/24 04:14
ALT 14 U/L (0-35) 01/23/24 04:14
Alkaline Phosphatase 114 U/L (38-126) 01/23/24 04:14
Most recent labs reviewed.
Micro Results:
01/23/24 04:14 Blood Culture - Preliminary
Blood/Venous Positive culture in progress
Gram Stain - Preliminary
01/23/24 04:14 Blood Culture - Preliminary
Blood/Venous Positive culture in progress
Gram Stain - Preliminary
01/24/24 04:26 Blood Culture - Pending
Blood/Venous
01/21/24 12:51 Blood Culture - Preliminary
Blood/Venous Staph aureus MRSA
Gram Stain - Final
01/23/24 15:02 Catheter Tip Culture - Pending
Dialysis Line
01/21/24 16:15 Respiratory Culture - Final
Sputum Staph aureus MRSA
Gram Stain - Final
01/21/24 16:46 Urine Culture - Preliminary
Urine Gram negative bacilli
01/21/24 12:51 Blood Culture - Preliminary
Blood/Venous Staph aureus MRSA
Gram Stain - Final
01/21/24 16:46 Nasal Screen MRSA (PCR) - Final
Nose Staph aureus MRSA
01/21/24 16:46 Legionella Urinary Antigen - Final
Urine Negative for Legionella pneumophila Serogroup 1 antigen.
A negative result does not rule out the possiblity of
Legionella infection due to other serogroups or species of
Legionella. Clinical correlation is recommended.
Streptococcus pneumoniae Antigen (M - Final
Negative for Streptococcus pneumoniae antigen.
A negative result does not exclude infection with
Streptococcus pneumoniae. Clinical correlation is
recommended.
01/21/24 12:51 Influenza Types A & B (DINORAH) - Final
Nasal Swab Negative for Influenza A & B, NAAT
Negative results must be combined with clinical observations
and patient history.
Nucleic Acid Amplification test (NAAT)performed on the
[employer] platform.
01/21/24 CXR: moderate left and mild right lower lung findings suggesting pneumonia..
--- NOTE | 2024-01-24 09:30 | PTCARENOTE ---
Pt resting. Monitor SR with freq PAC's. Currently transitioned to 15L midflow with sats of 93%.
--- NOTE | 2024-01-24 09:48 | W.PN.HOSP.TC ---
Addendum entered and electronically signed by Smith Antoine MD 01/24/24 15:09:
Hospital-acquired delirium.
Original Note:
Today's Communication/Plan
-
IV antibiotics. IV amiodarone. Cardiac monitoring.
Assessment / Plan
Assessment / Plan
Physical exam:
General: Acutely ill
HEENT: Normocephalic, Atraumatic and Moist Mucous Membranes
Respiratory: Coarse crackles in both bases more pronounced on the right; Negative Wheezes or Rhonchi
Cardiac: Irregular rate and rhythm, tachycardic, and S1/S2, systolic murmur radiating to axilla
GI: Soft, Nontender and Nondistended
Musculoskeletal: No Clubbing, No Cyanosis and B/L Edema
Neuro: Awake, Alert and Oriented, generalized weakness but no gross neuro-deficits.
Psych: Flat affect
Echocardiogram:
LV ejection fraction is 55-60%. No regional wall motion abnormalities are seen.
Normal right ventricular size and function.
Severely dilated left atrium. Moderately dilated right atrium.
Moderate, eccentric mitral regurgitation.
No prior study available for comparison.
A/P:
Acute hypoxic respiratory failure:
Multifactorial in etiology likely pneumonia and volume overload, a fib, also underlying copd
Down from high flow oxygen to mid flow oxygen today on 15 L
HD per renal
Continue broad-spectrum IV antibiotics
Updated niece over the phone today
Sepsis due to Staph aureus bacteremia/pneumonia/?UTI:
Blood cultures positive for staph--> repeat blood cultures today pending
Obtained culture from tip of the catheter as well
Sputum culture positive for staph
Continue IV vancomycin
Urine cultures with gram-negative megan
WBC 24.8---> 18.5
Lactate remains at 3.3
Legionella, strep, influenza, COVID-19 all tests negative.
Transthoracic echocardiogram reviewed
Might need to address removing HD access as line holiday--> plan to remove HD catheter today after hemodialysis and IR consulted for temporary.
ID consult appreciated
Paroxysmal Atrial fibrillation rapid ventricular response/atypical atrial flutter as well:
Anticoagulation on hold due to anemia
Continue IV Lopressor as needed
Cardiology consulted and cardiology is going to start amiodarone
Anemia:
Appears a combination of anemia of chronic disease mainly and iron deficiency. Unclear if acute component due to anemia of chronic disease worsening or acute blood loss anemia.
Blood transfusion today, Hb 6.7-->9
Monitor hemoglobin closely
Acute on chronic diastolic CHF:
Manage volume via dialysis
Transthoracic echo updated
Dysphagia:
Speech therapy evaluation and recommended start diet level 6
Mental status changes:
Suspect delirium related but if any focality on exam or persistent, then would consider brain images rule out stroke or infectious embolic events. Improvement noticed.
Hyponatremia:
Sodium 130 today
With dialysis will improve
Elevated troponin:
Elevated troponin likely due to non-ischemic myocardial injury in the setting of sepsis and end-stage renal disease
Echocardiogram reviewed and no WMA, normal EF.
Hyperglycemia:
Likely due to stress
Hemoglobin A1c 5.3
Cont low-dose insulin sliding scale
End-stage renal disease on hemodialysis:
Nephrology consult appreciated
Dialysis per nephrology
Hypotension:
On midodrine
Hypothyroidism:
Continue thyroid replacement
COPD:
No need for systemic steroids
No bronchospasm
Continue Pulmicort inhaler twice a day.
Continue DuoNebs 4 times daily
History of cardiac arrest/PEA back in November:
Invasive strategy has not been pursued due to multiple medical issues
History of probable renal artery stenosis:
Needs further investigation later down the road.
DVT prophylaxis:
Eliquis
CODE STATUS:
Full code
Total time spent on today's encounter was 52 minutes which included time spent in counseling the patient/family regarding diagnosis and treatment plan as listed above, goals of care, and symptom management. Case was discussed with nursing staff,
specialists, and care coordinators/case management. All labs and imaging personally reviewed by me. Remainder the time spent in detailed review of previous records, lab data, imaging, and other medical provider documentation.
Anticipated Discharge: > 48 hours
Subjective/Interval History
-
Date of Service: January 24, 2024
Patient tachycardic today. Still significant amount of oxygen requirements but much less than before. Remains frail.
Objective Data
-
Labs:
Laboratory Results
01/24/24 01/24/24
04:26 11:00
WBC 18.5 H
Hgb 6.7 L*
Hct 20.6 L*
Plt Count 228
Sodium 129 L Pending
Potassium 3.0 L Pending
Chloride 95 L Pending
Carbon Dioxide 26 Pending
BUN 31 H Pending
Creatinine 2.2 H Pending
Glucose 123 H Pending
Calcium 8.0 L Pending
Vital Signs:
Vital Signs
Temp Pulse Resp BP Pulse Ox
98.9 F 141 22 119/70 93
01/24/24 08:08 01/24/24 08:41 01/24/24 08:00 01/24/24 08:41 01/24/24 09:25
I&O
01/23/24 01/24/24 01/25/24
06:59 06:59 06:59
Intake Total 70 / 70 280 / 280
Output Total 5 / 5 0 / 0
Balance -5 / -5 70 / 70 280 / 280
--- NOTE | 2024-01-24 10:45 | W.PN.NEPH.PH ---
Today's Communication / Plan
-
HD temp catheter probably tomorrow
possible HD on Sunday
Assessment/Plan
-
Impression:
Hypoxic respiratory failure
Suspected pneumonia with possible underlying congestive heart failure
End-stage renal disease (new dx within a month with suspected ATN origin following out of hospital cardiac arrest)
Hypertension
Paroxysmal A-fib
Suspected bilateral renal artery stenosis
Hypothyroidism
Anemia
Plan:
with MRSA bacteremia and PNA,s/p HD catheter removal on 01/22, tip for culture
possible can place temp HD catheter tomorrow vs Sunday d/w ID
cont midodrine support for BPs on HD
apparently volume removal as outpatient has been complicated by hypotension
Echocardiogram reviewed preserved EF, mod MR
Anemia-acute drop s/p PRBC this am, no overt bleeding noted on AC
XIN will be provided for anemia of chronic kidney disease
Antibiotic therapy per ID,on mid flow O2 15lit
hyponatremia-dilutional
replace k
renal diet and FR 1200 cc/day
on 01/20 Dr London spoke with mahesh, who is a principal software engineer at [employer], that in the future an MRA be considered to evaluate suspected bilateral renal artery stenosis
-
-
Date of Service: January 24, 2024
CC / HPI / ROS
-
Chief Complaint:
ESRD
History of Present Illness:
ESRD MWF at [facility]
Hemodynamically stable with out pressors
hb low 6.7, WBC better at 18.5k
sodium low 129, k low 3, cr increases pre HD and anuria
Review of Systems:
Remains on oxygen support with productive cough
NPO , speech follows
No new fevers
no reported pain or sob at rest
severe KAKTOVIK, communicates through writing
Labs
-
Labs:
WBC 18.5 10^3/uL (4.8-10.8) H 01/24/24 04:26
RBC 2.23 10^6/uL (4.20-5.40) L 01/24/24 04:26
Plt Count 228 10^3/uL (130-400) 01/24/24 04:26
eGFR 21.70 01/24/24 04:26
Albumin 2.6 g/dl (3.5-5.0) L 01/23/24 04:14
Physical Exam
-
Vital Signs:
Vital Signs
Temp Pulse Resp BP Pulse Ox
98.9 F 141 22 119/70 93
01/24/24 08:08 01/24/24 08:41 01/24/24 08:00 01/24/24 08:41 01/24/24 09:25
Cardiovascular:: Regular rate and rhythm
Respiratory:: Bilateral: Coarse
Lung Excursion:: Normal
Abdomen:: Nontender and Soft
Extremity Edema:: None: Bilateral:
Pennington Catheter: No
--- NOTE | 2024-01-24 10:46 | CON.CAR ---
Addendum entered and electronically signed by Blaine Espino MD 01/24/24 12:48:
83 yo female with paroxysmal A fib on eliquis, recent hospitalization with PEA arrest and acute renal failure, now on HD is admitted with PNA, MRSA bacteremia. We are consulted for A fib with RVR. She does not feel palps. Exam with tachy,
irregular rhythm, II/ systolic murmur at apex, trace LE edema.
Tele shows paroxysmal A fib, and also periods of atypical atrial flutter.
She was on eliquis, but now held today for anemia, and receiving pRBC.
Start IV amiodarone.
Original Note:
Consultation
Consultation Request
Date/Time Consultation Requested: 01/24/24 1045
Date/Time Consultation Performed: 01/24/24 1050
Requesting Provider: Dr. Antoine
Performing Provider: Sona CROW for Dr. Espino
Reason for Consultation: tachycardia
Medical History
-
Chief Complaint: SOB, hypoxia, cough
History of Present Illness:
83 y/ female 'Jo-Ann' with hypertension, depression/anxiety, renal artery stenosis, AFIB, HFpEF, [place], and ESRD on HD who apparently recently suffered a cardiac arrest (details not totally clear- PEA per notes) with ATN, but now with ESRD on dialysis
as noted ([place] hospitalization). She presented to the hospital from ID with SOB, cough, and increased O2 requirements. She was seen to have PNA and is on O2 by AL and is weaning. She has MRSA bacteremia. She is being treated with abx. We are consulted
due to arrhythmia noted on monitor. I see atrial flutter/FIB on the monitor. She is on Eliquis for OAC, but now held for worsening anemia. She received a unit of PRBC's. She denies any palpitations. She reports some fatigue, but is in no distress at
the time of my assessment. She is [place] and I communicated with her effectively with some lip-reading on her end, but also with writing to her on paper.
Past Medical History
Past Medical History: Arrhythmias (PAF per chart), CHF, COPD, HTN, Hypothyroidism, Psychiatric (depression, anxiety) and Other (as above)
Social History
Tobacco: Former Smoker
Living: [facility]
Family History
Family History: Reviewed & Not Pertinent
Allergies / Home Medications
Allergy/AdvReac Type Severity Reaction Status Date / Time
No Known Allergies Allergy Unverified 01/21/24 12:45
�Medication �Instructions �Recorded �Confirmed �Type
acetaminophen 325 mg tablet 650 mg PO Q6HPRN PRN mild pain 01/21/24 01/21/24 History
(Tylenol)
apixaban 2.5 mg tablet (Eliquis) 2.5 mg PO BID Blood Clot 01/21/24 01/21/24 History
Prevention/Tx
atorvastatin 40 mg tablet (Lipitor) 40 mg PO HS High Cholesterol 01/21/24 01/21/24 History
bisacodyl 10 mg rectal suppository 10 mg ME DAILYPRN PRN if no bm 01/21/24 01/21/24 History
(Dulcolax (bisacodyl)) aftr mom
budesonide-formoterol HFA 160 2 inh inhalation R [id number] PRN sob 01/21/24 01/21/24 History
mcg-4.5 mcg/actuation aerosol
inhaler (Symbicort)
carvedilol 6.25 mg tablet (Coreg) 6.25 mg PO BID Blood Pressure 01/21/24 01/21/24 History
dextromethorphan-guaifenesin 5 10 ml PO Q8HPRN PRN cough 01/21/24 01/21/24 History
mg-100 mg/5 mL oral liquid
(Robitussin Cough-Chest Congestion
DM)
ferrous sulfate 325 mg (65 mg 325 mg PO DAILY Supplement 01/21/24 01/21/24 History
iron) tablet
levothyroxine 100 mcg tablet 100 mcg PO DAILY Thyroid 01/21/24 01/21/24 History
(Synthroid)
midodrine 10 mg tablet 10 mg PO DAILYPRN PRN low bp 01/21/24 01/21/24 History
mirtazapine 15 mg tablet (Remeron) 7.5 mg PO HS Mental Health/Anxiety 01/21/24 01/21/24 History
nifedipine 90 mg tablet,extended 90 mg PO DAILY Blood Pressure 01/21/24 01/21/24 History
release
polyethylene glycol 3350 17 gram 17 g PO DAILY Constipation 01/21/24 01/21/24 History
oral powder packet (Miralax)
simethicone 80 mg chewable tablet 80 mg PO [id number] PRN gas 01/21/24 01/21/24 History
sorbitol 70 % solution 30 ml PO DAILYPRN PRN constipation 01/21/24 01/21/24 History
spironolactone 25 mg tablet 25 mg PO DAILY Fluid 01/21/24 01/21/24 History
Retention/Swelling
tiotropium bromide 2.5 2 inh inhalation R DAILY 01/21/24 01/21/24 History
mcg/actuation mist for inhalation Lung/Breathing Issues
vitamin B complex-vitamin C-folic 1 tab PO DAILY Supplement 01/21/24 01/21/24 History
acid 0.8 mg tablet (Renal Vitamin)
Review of Systems
-
History Source: Patient and Other (and chart)
Respiratory: Cough and Trouble Breathing
Physical Exam
Vital Signs
Temp Pulse Resp BP Pulse Ox
98.9 F 141 22 119/70 93
01/24/24 08:08 01/24/24 08:41 01/24/24 08:00 01/24/24 08:41 01/24/24 09:25
Lab Results
Troponin I 0.056 ng/ml H* 01/22/24 07:33
Physical Exam
General: Well Developed
HEENT: Normocephalic and Anicteric
Respiratory: Rhonchi and Other (on O2 by NC)
Cardiac: Irregular Rhythm
Musculoskeletal: No Edema
Skin: Warm and Dry
Neuro: Awake, Alert and Oriented
Psych: Calm
Impression / Plan
-
Sepsis- PNA, poss UTI, MRSA bacteremia:
-severe, requiring IV ABX and supplemental O2
-on ABX, ID is following
-on O2 by NC- being weaned
PAF, Atrial flutter (likely typical):
-patient with known PAF per chart
-on Eliquis for OAC as OP ([id number] score at least 5 age, female, HTN, CHF). However, held in setting of worsening anemia.
-rate control improved with IV BB dose
-Coreg being resumed now- continue
-follow telemetry
Anemia:
-[id number]
-no obvious bleeding source
-she is s/p 1 units PRBC's with repeat hgb pending
-Eliquis held for now
ESRD:
-on HD, nephro following
HFpEF:
-volume status seems stable today
-echo as noted
-volume management with HD
Data Reviewed
-
EKG: Tracing Personally Visualized and interpreted (January 21, 2024: ST 102 BPM 1st degree AVB, nonspecific ST/T abnormality)
Radiology: Report Reviewed by me (CXR 01/21/24: moderate left and mild right lower lung findings suggesting pneumonia..)
Medical Tests (Nuc Med, Echo etc): Report Reviewed by me (echo 01/21/24: LV ejection fraction is 55-60%. No regional wall motion abnormalities are seen. Normal right ventricular size and function. Severely dilated left atrium. Moderately dilated
right atrium. Moderate, eccentric mitral regurgitation.)
Labs: Labs Reviewed by me
--- NOTE | 2024-01-24 11:10 | PN.CDI ---
CDI
- -
CDI:
Physician Documentation Request
Admit Date: 01/21/24 14:56
Dear Doctor Elina,
Patient admitted with acute hypoxic respiratory failure.
01/22 Hospitalist PN: 'Mental status changes: Suspect delirium related but if any focality on exam or persistent, then would consider brain images rule out stroke or infectious embolic events.'
01/22 PCN: 'pt anxious and forgetful ringing the call alex often for the same reason.'
Please provide the etiology of the confusion/altered mental status such as:
Hospital acquired delirium
Delirium due to ____ (Indicate known or suspected etiology, such as postoperative, opioid induced, due to a known condition (such as UTI, etc.), mixed etiology, etc.)
Delirium ruled out
Other
Use of terms such as suspected, likely, concern for, or probable (associated with a specific diagnosis that is being evaluated, monitored, or treated as if it exists) are acceptable and can be coded in the inpatient setting, when documented at the
time of discharge.
Thank you,
Mia Christianson RN, BSN
CDI Specialist
Available via [employer] text
Please use your independent medical judgment in providing your response.
[2024-01-24] MEDS: SENOKOT-S 1 TABLET PO (11:34)
[2024-01-24] MEDS: COREG 6.25 MG PO ×2 (11:34→21:24)
--- NOTE | 2024-01-24 11:50 | PTCARENOTE ---
Pt remains resting-other than wanting water no complaints. Tolerating 15L midflow with sats of 93-94%. Coughing a intermittent moist cough. Monitor - rhythm has been mostly irregular with SR and PAC's but now having the appearance of Aflutter
116-128 range. Cardiology in and ECG done which is reading as A Flutter. Pt also having periods of a more regular rhythm that is tachy at 140 just like this morning. VS as documented. Labs sent as ordered. Pt did not feel as if she could stand but
with goal of having pt oob in the chair- pt lifted with lift device oob into the recliner chair. Call alex is in reach. Pt rolled her eyes at the suggestion of getting up but is ok sitting oob currently.
[2024-01-24 11:57] LABS: Blood Urea Nitrogen 37 mg/dl (7-17); Calcium 8.1 mg/dl (8.4-10.2); Carbon Dioxide 26 mmol/L (22-30); Chloride 94 mmol/L (98-107); Estimated Creatinine Clearance 14 ml/min; Glucose 135 mg/dl (70-99); Potassium 3.2 mmol/L (3.5-5.1); Sodium 130 mmol/L (135-145); eGFR 18.61
[2024-01-24] MEDS: MAXIPIME 1000 MG IV (13:16)
[2024-01-24] MEDS: STERILE WATER FOR INJECTION 10 ML IV (13:16)
[2024-01-24] MEDS: FLUSH (NSS) 1 FLUSH IV (13:17)
[2024-01-24] MEDS: KCL 100 IV (14:04)
[2024-01-24] MEDS: CORDARONE 103 MG IV (14:10)
[2024-01-24] MEDS: CORDARONE 518 MG IV (14:14)
--- NOTE | 2024-01-24 14:14 | CM ---
CM following re: discharge planning.
Discussed in Rounds, reviewed pt's chart, met with pt and pt's niece Cyndy and pt's sister (Cyndy mother) at bedside. Per Rounds meeting, HD temp catheter probably tomorrow possible HD on Sunday, requires 15 L midflow NC of O2 with
saturation 96%, continue supportive care.
Pt's niece stated she is looking for a possibility to tour [facility] and [place] [facility] and [facility]F that locate very close to where she lives. Pt's niece stated she will tour all SNFs to decide. Per daughter she spoke to [place]
center public affairs director and they reviewing a referral.
CM will set up outpatient HD treatment when a SNF admission confirmed
D/C plan: Preferred SNF ([facility], [facility] or [facility]) with outpatient HD treatment in [facility].
CM will follow with discharge plan updates as hospitalization progresses
--- NOTE | 2024-01-24 14:25 | PTCARENOTE ---
Overall tolerated being oob well. Speech therapy in and put in diet recommendations. Pt for possible VSE tomorrow to further assess swallowing. Pt taking sips of water with no additional coughing noted with swallowing. Pt lifted back to bed with
lift device at 1400. Turned and repositioned. Skin care given. Capped int dc'd from R wrist due to leaking and new #22 placed R hand with excellent blood return. KCL 40 meq rider hung via new R hand IV site at 1405 and Amiodarone gtt hung via L AC
IV site-site with excellent blood return. 150 mg bolus given at 1410 and infusion at 1 mg/mg at 1420- HR prior to starting Amio anywhere from 112 to 130. Family at the bedside and updated- Niece and sister. Call alex in reach.
--- NOTE | 2024-01-24 14:27 | PTOTSP ---
Dysphagia Therapy
Oral stage at least mildly impaired. No overt s/s concerning for aspiration observed. Video swallow study warranted to objectively assess pharyngeal swallowing and r/o silent aspiration given patient's PNA, history of traumatic intubation (November
2023), and current vocal quality (i.e., breathy component, mildly decreased volume). Patient's elevated heart rate is a barrier to leaving the floor for testing at this time. Will complete as able/medically appropriate when orders received. Until
video swallow study can be completed, initiate dysphagia diet as outlined below:
1. IDDSI Level 5 Minced and Moist, IDDSI Level 0 Thin Liquids
2. Medications - whole in puree
3. Strategies: uprigh to 90 degrees, single sips/bites, slow rate
4. Oral care 3x daily
5. Video swallow study when medically cleared
--- NOTE | 2024-01-24 17:00 | PTCARENOTE ---
Remains resting. No changes in assessment. Sats 92-93%, Coughing an intermittent moist cough for tannish secretions. Tolerating 15L midflow. Monitor Still A flutter but rates 80's and 70's. KCL rider still infusing as the rate needed to be slowed so
it wouldn't hurt. Amiodarone continues to infuse at 1 mg/mmin. Sites wnl. Repositioned. Sport bed on Rotation. Ate about 30% of her late lunch but no additional coughing noted. Call alex remains within reach.
--- NOTE | 2024-01-24 18:30 | PTCARENOTE ---
Ate very little for dinner. Back in SR with ' avb. No other changes
--- NOTE | 2024-01-24 20:00 | PTCARENOTE ---
rec`d pt at 1900 laying in bed. AAOx3, flat affect. SR on monitor, hr in 70-80s. amio gtt continued through left AC 20. pt also has a rt hand 22. + pulses. no edema. rt side tends weaker than right. pt on midflow 15L. satting at 87-90%. moist non
productive cough. coarse lung sounds. hypoactive bowel sounds. anuric. pt is on sport bed for percussion. call alex in reach. safe environment maintained.
--- NOTE | 2024-01-24 21:00 | PTCARENOTE ---
pt desatting to low 80s. pt moved to high flow-50L and 60%. POX now 95%.
[2024-01-24] MEDS: REMERON 7.5 MG PO (21:24)
[2024-01-25] VITALS (38 sets, daily range): BP systolic 110–148; BP diastolic 52–109; PULSE 77; O2SAT 90–93
--- NOTE | 2024-01-25 00:05 | PTCARENOTE ---
pt reassessed. no changes in pt assessment. call alex in reach.
[2024-01-25] MEDS: VENTOLIN NEBULES 2.5 MG INH (03:41)
[2024-01-25 04:03] LABS: B.E. 0.6 mmol/L; HCO3 23.8 mmol/L (21-28); O2 Saturation % 99.9 % (94-98); PCO2 32 mmHg (32-35); PO2 214 mmHg (83-108); pH 7.48 (7.35-7.45)
[2024-01-25 04:04] LABS: % Basophils 0.5 % (0-2); % Eosinophils 0.1 % (0-6); % Immature Granulocytes 13.3 % (0-0.5); % Lymphocytes 6.8 % (20.5-51.1); % Monocytes 7.6 % (1.7-9.3); % Neutrophils 71.7 % (42.2-75.2); Absolute Basophils 0.1 10^3/uL (0-0.2); Absolute Immature Granulocytes 2.9 10^3/uL (0-0.05); Absolute Lymphocytes 1.5 10^3/uL (1.2-3.4); Absolute Monocytes 1.7 10^3/uL (0.1-0.6); Absolute Neutrophils 15.6 10^3/uL (1.4-6.5); Hematocrit 24.8 % (37.0-47.0); Hemoglobin 8.5 g/dL (12.0-16.0); Mean Corp Hgb Conc. 34.3 g/dL (33.0-37.0); Mean Corpuscular Hgb 29.5 pg (27.0-31.0); Mean Corpuscular Volume 86.1 fL (81.0-99.0); Mean Platelet Volume 10.4 fL (7.4-10.4); Nucleated Red Blood Cells % 0 %; O2 Therapy 40; Platelet Count 204 10^3/uL (130-400); Red Blood Cell Count 2.88 10^6/uL (4.20-5.40); Red Cell Dist. Width 17.2 % (11.5-14.5); White Blood Cell Count 21.8 10^3/uL (4.8-10.8)
[2024-01-25 04:29] LABS: Lactic Acid 1.3 mmol/L (0.7-2.0)
[2024-01-25 04:30] LABS: Blood Urea Nitrogen 50 mg/dl (7-17); Calcium 8.2 mg/dl (8.4-10.2); Carbon Dioxide 22 mmol/L (22-30); Chloride 94 mmol/L (98-107); Estimated Creatinine Clearance 13 ml/min; Glucose 153 mg/dl (70-99); Magnesium 2.1 mg/dl (1.6-2.3); Sodium 123 mmol/L (135-145); eGFR 16.25
[2024-01-25] MEDS: SYNTHROID PO (05:19)
[2024-01-25] MEDS: MYCOSTATIN ORAL SUSPENSION 5 ML PO ×3 (05:19→23:08)
[2024-01-25] MEDS: DUONEB 3 ML INH ×4 (07:31→20:10)
[2024-01-25] MEDS: PULMICORT 0.5 MG INH ×2 (07:31→20:10)
--- NOTE | 2024-01-25 07:41 | W.PN.INTV ---
Today's Communication / Plan
Recommendations
Continue with rate control, amiodarone transition to oral
Continue with airway clearance
Antibiotic changes noted per ID
Follow sodium. HD per nephrology
Placement of trialysis catheter today, per nephrology
Optimize nutrition
Assessment
-
83-year-old female with history of atrial fibrillation on anticoagulation, history of [id number]-yrompysi cardiac arrest in the past complicated by end-stage renal disease, on hemodialysis who presents with suspected bilateral patchy pneumonia,
leukocytosis, worsening hypoxia. Patient admitted to ICU for further management 01/21/2024
Acute hypoxic respiratory insufficiency
Requiring nonrebreather, transition to high flow
Bilateral infiltrates, suspected pneumonia
Leukocytosis, bandemia
Anemia
ESRD on HD (M/W/F)
Hyponatremia hyperglycemia
Mildly elevated troponin
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
Normal biventricular function
Intermittent tachycardia, atrial fibrillation
Conditions present prior to admission
Hypertension/hyperlipidemia hypothyroidism
History of OOHCA/PEA November 2023
VDRF
c/b ATN/ESRD
Aspirated tooth secondary to traumatic intubation November 2023
Required bronchoscopy with retrieval on right side
Atrial fibrillation on anticoagulation
Hx of Hypothyroidism
History of COPD
[id number] history of smoking quit 1989
Plan/recommendations
At this time, patient i appears to be overall improved, however still requiring high flow oxygen
Appears more comfortable, less use of accessory muscles
Tachycardia noted, heart rate varies from 80s to 140s, converted to sinus rhythm, on amiodarone drip
Chest ultrasound without significant fluid for thoracentesis
Status post HD 01/22
Significant smoking history noted
Chest x-ray today with persistent bilateral patchy infiltrate per my review. Improved left pleural effusion
ABG 7.48/32/214. No evidence of CO2 retention
Moving forward
Continue with empiric antibiotics, transition from cefepime/vancomycin to ertapenem/vancomycin
Cultures positive for Staphylococcus in the sputum, MRSA swab and MRSA bacteremia
Echocardiogram without evidence of vegetation
ID following
HD catheter removed 01/23/2024
Legionella and streptococcal pneumonia antigen negative
Await placement of HD catheter/trialysis catheter today
Continue nebulized therapy, chest percussion, sport bed, chest percussion, Acapella/incentive spirometry
Minimize any sedation
Patient cough seems to be getting stronger
Head of bed elevated, aspiration precautions
Speech and swallow evaluation, will reevaluate as she appears to be stronger today
Unfortunately nutrition continues to be an issue
Doubt heart failure. Echocardiogram with normal biventricular function, eccentric MR noted
Apparently had echocardiogram while in [facility] with mild to moderate MR at that time
Elevated troponins noted, trend
Atrial fibrillation with rapid rates at times, patient appears to be without symptoms, now converted to sinus rhythm
Lopressor as needed amiodarone continues, transition to oral per cardiology
Hemodialysis continues Sunday/Sunday/Sunday
Midodrine continues per nephrology
May require intermittent fluid boluses, not requiring pressors, follow
Replete potassium
Sodium 123, nephrology following
HD catheter/trialysis catheter to be placed today
Patient did have an aspirated tooth with difficult intubation/traumatic intubation while in [facility] requiring a bronchoscopy with tooth retrieval on right side of the lung
Poor dentition is noted
Follow blood sugars
Low-dose insulin sliding scale. Hyperglycemia noted
PT/OT. Patient has refused in the past. This will be critical to continue
DVT prophylaxis: Eliquis has been resumed 2.5 mg twice a day. History of atrial fibrillation noted
GI prophylaxis: Not indicated at this time
Reviewed with critical care nursing, respiratory care, pharmacy, case management
Will need to address CODE STATUS at some point. Not sure mechanical intubation, CPR/shock would be an patient's best interest
This will be an ongoing discussion
Subjective Dataa
Subjective Data
Date of Service:
Date of Service: January 25, 2024
Subjective:
Patient appears to be comfortable. Hard of hearing. Respiratory status remains tenuous. She denies any chest pain. Oxygen level is marginal, she required bump up of oxygen overnight
Objective Data
Data Reviewed
Vital Signs / I&O / Oxygen:
Vital Signs
Temp Pulse Resp BP Pulse Ox
97.6 F 70 18 120/74 97
01/25/24 07:20 01/25/24 05:00 01/25/24 05:00 01/25/24 05:00 01/25/24 05:00
Intake and Output
01/24/24 01/25/24 01/26/24
06:59 06:59 06:59
Intake Total 70 / 70 1196.8 / 1196.8
Output Total 0 / 0
Balance 70 / 70 1196.8 / 1196.8
SaO2 97
Nasal Cannula flow liters per 50
minute
Physical Exam
General: Comfortable (Fatigued, weak) and Other (Dressing over prior right anterior port site, cachectic)
HEENT: Normocephalic, Anicteric and Other (Left facial droop, unable to close left eyelid)
Cardiovascular: S1-S2, Regular Rhythm, Murmur (n), Rub (n) and Peripheral Edema (n)
Respiratory: Wheeze (n), Crackles (n), Rhonchi (few), Stridor (n) and Other (Decreased)
GI: Soft, Non Distended and Non Tender
Neurology: Awake (Hard of hearing, does follow some commands, weak cough), Alert and No Motor Deficits (Moving extremities, following commands, reads lips)
Skin: Cyanosis (n), Jaundice (n), Rash (n) and Other (Mild pallor)
Labs/Micro/Reports
Lab Data
01/25/24 03:49
01/25/24 03:49
Laboratory Results
01/25/24
03:49
pH 7.48 H
pCO2 32
pO2 214 H
HCO3 23.8
O2 Delivery Level 40
Microbiology
01/24/24 04:26 Blood/Venous Blood Culture - Preliminary
No Growth in 24 hours- Final report to follow
01/21/24 12:51 Blood/Venous Blood Culture - Final
Staph aureus MRSA
01/21/24 12:51 Blood/Venous Gram Stain - Final
01/21/24 12:51 Blood/Venous Blood Culture - Final
Staph aureus MRSA
01/21/24 12:51 Blood/Venous Gram Stain - Final
01/23/24 15:02 Dialysis Line Catheter Tip Culture - Preliminary
No Growth After 18-24 Hours
01/23/24 04:14 Blood/Venous Blood Culture - Preliminary
Staphylococcus aureus
01/23/24 04:14 Blood/Venous Gram Stain - Preliminary
01/21/24 16:46 Urine Urine Culture - Preliminary
Gram negative bacilli
01/23/24 04:14 Blood/Venous Blood Culture - Preliminary
Positive culture in progress
01/23/24 04:14 Blood/Venous Gram Stain - Preliminary
01/21/24 16:15 Sputum Respiratory Culture - Final
Staph aureus MRSA
01/21/24 16:15 Sputum Gram Stain - Final
--- NOTE | 2024-01-25 08:15 | PTCARENOTE ---
Received pt @ change of shift. Oriented x 2, drowsy/forgetful/flat. Deaf in L ear, [place] in R; hearing aid in repair. Communicates via lip reading and writing; nods/verbalizes understanding of plan of care. Assessment as charted- see flow sheet.
Assisted w repositioning in bed. Bed alarm active. Instructed on how to report care concerns and call alex in reach.
--- NOTE | 2024-01-25 08:51 | W.PN.HOSP.TC ---
Today's Communication/Plan
-
IV antibiotics. Supplemental oxygen.
Assessment / Plan
Assessment / Plan
Physical exam:
General: Acutely ill
HEENT: Normocephalic, Atraumatic and Moist Mucous Membranes
Respiratory: Coarse crackles in both bases more pronounced on the right; Negative Wheezes or Rhonchi
Cardiac: Irregular rate and rhythm, tachycardic, and S1/S2, systolic murmur radiating to axilla
GI: Soft, Nontender and Nondistended
Musculoskeletal: No Clubbing, No Cyanosis and B/L Edema
Neuro: Awake, Alert and Oriented, generalized weakness but no gross neuro-deficits.
Psych: Flat affect
Echocardiogram:
LV ejection fraction is 55-60%. No regional wall motion abnormalities are seen.
Normal right ventricular size and function.
Severely dilated left atrium. Moderately dilated right atrium.
Moderate, eccentric mitral regurgitation.
No prior study available for comparison.
A/P:
Acute hypoxic respiratory failure:
Multifactorial in etiology likely pneumonia and volume overload, a fib, also underlying copd
Down from high flow oxygen to mid flow oxygen
HD per renal
Continue broad-spectrum IV antibiotics
Updated niece over the phone yesterday
Sepsis due to Staph aureus bacteremia/pneumonia/?UTI:
Blood cultures positive for staph--> repeat blood cultures from 01/23 no growth so far
Obtained culture from tip of the catheter as well and no growth so far
Sputum culture positive for staph
Continue IV vancomycin
She is also now on ertapenem
Urine cultures with gram-negative megan
WBC 24.8---> 18.5-->21.8
Lactate remains at 3.3-->1.3
Legionella, strep, influenza, COVID-19 all tests negative.
Transthoracic echocardiogram reviewed
Might need to address removing HD access as line holiday--> plan to remove HD catheter today after hemodialysis and IR consulted for temporary.
ID consult appreciated
Paroxysmal Atrial fibrillation rapid ventricular response/atypical atrial flutter as well:
Anticoagulation on hold due to anemia but no evidence of bleeding, would be able to restart
Continue IV Lopressor as needed
Cardiology consult appreciated
Amiodarone IV switch to oral today, 400 mg twice a day
On carvedilol 6.25 mg twice a day
Anemia:
Appears a combination of anemia of chronic disease mainly and iron deficiency. Unclear if acute component due to anemia of chronic disease worsening or acute blood loss anemia.
Blood transfusion today, Hb 6.7-->9-->8.5
Monitor hemoglobin closely
Acute on chronic diastolic CHF:
Manage volume via dialysis
Transthoracic echo updated
Dysphagia:
Speech therapy evaluation and recommended start diet level 6
Mental status changes:
Suspect delirium related but if any focality on exam or persistent, then would consider brain images rule out stroke or infectious embolic events. Improvement noticed.
Hyponatremia:
Sodium 123 today
Nephro following
Elevated troponin:
Elevated troponin likely due to non-ischemic myocardial injury in the setting of sepsis and end-stage renal disease
Echocardiogram reviewed and no WMA, normal EF.
Hyperglycemia:
Likely due to stress
Hemoglobin A1c 5.3
Cont low-dose insulin sliding scale
End-stage renal disease on hemodialysis:
Nephrology consult appreciated
Dialysis per nephrology
Hypotension:
On midodrine
Hypothyroidism:
Continue thyroid replacement
COPD:
No need for systemic steroids
No bronchospasm
Continue Pulmicort inhaler twice a day.
Continue DuoNebs 4 times daily
History of cardiac arrest/PEA back in November:
Invasive strategy has not been pursued due to multiple medical issues
History of probable renal artery stenosis:
Needs further investigation later down the road.
DVT prophylaxis:
Eliquis
CODE STATUS:
Full code
Total time spent on today's encounter was 52 minutes which included time spent in counseling the patient/family regarding diagnosis and treatment plan as listed above, goals of care, and symptom management. Case was discussed with nursing staff,
specialists, and care coordinators/case management. All labs and imaging personally reviewed by me. Remainder the time spent in detailed review of previous records, lab data, imaging, and other medical provider documentation.
Anticipated Discharge: > 48 hours
Subjective/Interval History
-
Date of Service: January 25, 2024
Patient seen and examined. Remains on oxygen. Hard of hearing.
Objective Data
-
Labs:
Laboratory Results
01/25/24
03:49
WBC 21.8 H
Hgb 8.5 L
Hct 24.8 L
Plt Count 204
HCO3 23.8
Sodium 123 L
Potassium 4.0
Chloride 94 L
Carbon Dioxide 22
BUN 50 H
Creatinine 2.8 H
Glucose 153 H
Calcium 8.2 L
Vital Signs:
Vital Signs
Temp Pulse Resp BP Pulse Ox
97.6 F 74 24 120/74 97
01/25/24 07:20 01/25/24 07:41 01/25/24 07:41 01/25/24 05:00 01/25/24 07:41
I&O
01/24/24 01/25/24 01/26/24
06:59 06:59 06:59
Intake Total 70 1196.8 / 1196.8
Output Total 0 / 0
Balance 70 / 70 1196.8 / 1196.8
--- NOTE | 2024-01-25 08:59 | W.PN.NEPH.PH ---
Today's Communication / Plan
-
Dialysis once temp catheter placed
Assessment/Plan
-
Impression:
Hypoxic respiratory failure
MRSA bacteremia
Suspected MRSA pneumonia
Suspected pneumonia with possible underlying congestive heart failure
End-stage renal disease (new dx within a month with suspected ATN origin following out of hospital cardiac arrest)
Hypertension
Paroxysmal A-fib
Suspected bilateral renal artery stenosis
Hypothyroidism
Anemia
Plan:
with MRSA bacteremia and PNA,s/p HD catheter removal on 01/22, tip for culture: remains on vancomycin
For temp catheter placement today or tomorrow, dialysis will follow catheter placement
temp HD catheter exchanged today in setting of MRSA bacteremia
continue midodrine support for BPs on HD
apparently volume removal as outpatient has been complicated by hypotension
Echocardiogram reviewed preserved EF, mod MR
Anemia-acute drop s/p PRBC 01/23, no overt bleeding noted on AC
XIN will be provided for anemia of chronic kidney disease
Antibiotic therapy per ID,on mid flow O2 15lit
hyponatremia-dilutional
replace k
renal diet and FR 1200 cc/day
Patient remains critically ill on high flow oxygen in setting of MRSA bacteremia and MRSA pneumonia
Patient remains on IV amiodarone for atrial fibrillation
Discussed with ICU attending
Total Time Spent with Patient (in minutes): 31 minutes
-
-
Date of Service: January 25, 2024
CC / HPI / ROS
-
Chief Complaint:
ESRD
History of Present Illness:
ESRD MWF at [facility]
Hemodynamically stable with out pressors
hb 8.5 following transfusion
Leukocytosis persist
Remains on amiodarone drip
Review of Systems:
Remains on high flow oxygen support with productive cough
NPO , speech follows
No new fevers
no reported pain or sob at rest
severe MARY'S IGLOO, communicates through writing
Labs
-
Labs:
WBC 21.8 10^3/uL (4.8-10.8) H 01/25/24 03:49
RBC 2.88 10^6/uL (4.20-5.40) L 01/25/24 03:49
Hgb 8.5 g/dL (12.0-16.0) L 01/25/24 03:49
Hct 24.8 % (37.0-47.0) L 01/25/24 03:49
Plt Count 204 10^3/uL (130-400) 01/25/24 03:49
Sodium 123 mmol/L (135-145) L 01/25/24 03:49
Potassium 4.0 mmol/L (3.5-5.1) 01/25/24 03:49
Chloride 94 mmol/L (98-107) L 01/25/24 03:49
Carbon Dioxide 22 mmol/L (22-30) 01/25/24 03:49
BUN 50 mg/dl (7-17) H 01/25/24 03:49
Creatinine 2.8 mg/dL (0.6-1.0) H 01/25/24 03:49
eGFR 16.25 01/25/24 03:49
Glucose 153 mg/dl (70-99) H 01/25/24 03:49
Calcium 8.2 mg/dl (8.4-10.2) L 01/25/24 03:49
Albumin 2.6 g/dl (3.5-5.0) L 01/23/24 04:14
Physical Exam
-
Vital Signs:
Vital Signs
Temp Pulse Resp BP Pulse Ox
97.6 F 74 24 120/74 97
01/25/24 07:20 01/25/24 07:41 01/25/24 07:41 01/25/24 05:00 01/25/24 07:41
Cardiovascular:: Irregular rate and rhythm
Respiratory:: Bilateral: Coarse
Lung Excursion:: Normal
Bowel Sounds:: Normal
Extremity Edema:: None: Bilateral:
[place] Catheter: No
--- NOTE | 2024-01-25 09:00 | PTOTSP ---
Speech Language Pathology
Pt seen for dysphagia tx. RN provided sip of water with immediate wet coughing noted. Tolerated further sips of water without overt coughing. Oral holding and delayed initiation of oral management noted with puree, question whether this was
behavioral. Provided small piece of cracker. Pt requested this be dipped in water to soften it. Once provided, she allowed it to melt on tongue/mash between tongue and hard palate before swallowing. She is on regular solids at [facility] per
facility paperwork. Asked how she is able to chew, and she stated she can't chew, she 'sucks' on food. However, this is not an adequate method for majority of solid foods that won't dissolve as cracker did, and pt is at risk for choking with solid
foods other than puree.
Recommend:
(1) Downgrade to IDDSI Level 4 (Puree) and Thin liquids
(2) Aspiration precautions: sit upright, slow rate, single sips
(3) Meds whole in puree
(4) VSE once respiratory status improves and HR stable to leave floor
(5) EDUCATIONAL INSTITUTION CURATOR to continue to follow
[2024-01-25] MEDS: COREG 6.25 MG PO ×2 (09:01→20:50)
--- NOTE | 2024-01-25 10:12 | W.PN.CD ---
Addendum entered and electronically signed by Blaine Espino MD 01/25/24 11:10:
see my note for addendum/updates
Original Note:
Today's Communication / Plan
-
continue Coreg and IV Amiodarone.
Eliquis on hold for anemia.
Impression / Plan
-
Sepsis- PNA, poss UTI, MRSA bacteremia:
-severe, requiring IV ABX and supplemental O2
-ID is following
-on O2 NC
PAF, Atrial flutter (likely typical):
-patient with known PAF per chart
-on Eliquis for OAC as OP ([id number] score at least 5 age, female, HTN, CHF). However, held in setting of worsening anemia requiring transfusion
-continue Coreg and IV Amiodarone, in NSR
-follow telemetry
Anemia:
-xaxdu-rh-saucdpt
-no obvious bleeding source
-s/p 1 units PRBC's with hgb 8.5 today
-Eliquis held for now
ESRD:
-on HD, nephro following
HFpEF:
-echo as noted
-volume management with HD
-CXR today with pulmonary edema pattern with bilateral pleural effusions
Physical Exam
Vital Signs/Labs
Vital Signs
Temp Pulse Resp BP Pulse Ox
97.6 F 77 24 119/109 91
01/25/24 07:20 01/25/24 09:01 01/25/24 09:00 01/25/24 09:01 01/25/24 09:00
01/24/24 01/25/24 01/26/24
06:59 06:59 06:59
Actual Weight 58.1 kg
01/25/24 03:49
01/25/24 03:49
Magnesium 2.1 mg/dl (1.6-2.3) 01/25/24 03:49
Physical Exam
Constitutional: Comfortable
EENT: Anicteric and Moist mucous membranes
Cardiovascular: Rhythm & rate is regular
Respiratory: Respiratory effort normal and Crackles Present (bibasilar)
GI: Soft, Non tender and Normal bowel sounds
Neuro/Psych: AO x 3
Other: Skin (warm, dry)
Data Reviewed
-
Date of Service: January 25, 2024
Medical Decision Making: Reviewed Test Results
EKG: Tracing Personally Visualized and interpreted
Echo: Report Reviewed by me
Labs: Labs Reviewed by me
--- NOTE | 2024-01-25 10:35 | W.PN.ID1 ---
Date of Service
Date of Service: January 25, 2024
Today's Communication
Continue Vancomycin.
Replace cefepime with ertapenem.
Assessment / Plan
# MRSA PNA with acute hypoxic resp failure on High flow O2
# MRSA bacteremia (4 sets bcx's thus far)
# Severe sepsis
Leukocytosis trending up
# ESRD on HD
# recent hx cardiac arrest
- Repeat blood cultures until clear.
-TTE no gross vegetation
- 01/22 HD catheter dc'd, tip cx pending
- Continue Vancomycin.
- Trend wbc, oxygen requirement
- OK for temporary dialysis cath placement for HD
# ESBL-E. coli bacteruria vs UTI
- Discontinue cefepime
- Start ertapenem 500mg IV q24 x 3d.
# Additional Past Medical History:
ESRD on HD via catheter
HTN
Paroxysmal atrial fibrillation
Diastolic CHF
Renal artery stenosis
history of cardiorespiratory arrest (07/2023)
Hypothyroidism
Congenital left facial droop
Left Ankle fracture surgery
Chief Complaint
-: Leukocytosis, Pneumonia and Bacteremia
Subjective / Review of Systems
Cough better. No diarrhea.
Vital Signs / Physical Exam
Vital Signs
Vital Signs
Temp Pulse Resp BP Pulse Ox
97.6 F 77 24 119/109 91
01/25/24 07:20 01/25/24 09:01 01/25/24 09:00 01/25/24 09:01 01/25/24 09:00
Physical Exam
Constitutional: No Acute Distress and Chronically Ill
Objective Data
Lab Data
Lab Results
01/25/24 03:49
01/25/24 03:49
Estimated Creat Clear 13 ml/min 01/25/24 03:49
Lactic Acid 1.3 mmol/L (0.7-2.0) 01/25/24 03:49
Total Bilirubin 0.8 mg/dl (0.2-1.3) 01/23/24 04:14
AST 28 U/L (14-36) 01/23/24 04:14
ALT 14 U/L (0-35) 01/23/24 04:14
Alkaline Phosphatase 114 U/L (38-126) 01/23/24 04:14
Most recent labs reviewed.
Micro Results:
01/21/24 16:46 Urine Culture - Final
Urine Escherichia coli - ESBL
01/24/24 04:26 Blood Culture - Preliminary
Blood/Venous No Growth in 24 hours- Final report to follow
01/25/24 03:49 Blood Culture - Pending
Blood/Venous
01/21/24 12:51 Blood Culture - Final
Blood/Venous Staph aureus MRSA
Gram Stain - Final
01/21/24 12:51 Blood Culture - Final
Blood/Venous Staph aureus MRSA
Gram Stain - Final
01/23/24 15:02 Catheter Tip Culture - Preliminary
Dialysis Line No Growth After 18-24 Hours
01/23/24 04:14 Blood Culture - Preliminary
Blood/Venous Staphylococcus aureus
Gram Stain - Preliminary
01/23/24 04:14 Blood Culture - Preliminary
Blood/Venous Positive culture in progress
Gram Stain - Preliminary
01/21/24 16:15 Respiratory Culture - Final
Sputum Staph aureus MRSA
Gram Stain - Final
01/21/24 16:46 Nasal Screen MRSA (PCR) - Final
Nose Staph aureus MRSA
01/21/24 16:46 Legionella Urinary Antigen - Final
Urine Negative for Legionella pneumophila Serogroup 1 antigen.
A negative result does not rule out the possiblity of
Legionella infection due to other serogroups or species of
Legionella. Clinical correlation is recommended.
Streptococcus pneumoniae Antigen (M - Final
Negative for Streptococcus pneumoniae antigen.
A negative result does not exclude infection with
Streptococcus pneumoniae. Clinical correlation is
recommended.
01/21/24 12:51 Influenza Types A & B (DINORAH) - Final
Nasal Swab Negative for Influenza A & B, NAAT
Negative results must be combined with clinical observations
and patient history.
Nucleic Acid Amplification test (NAAT)performed on the
[employer] platform.
01/25/24 CXR: Radiographic findings are most suggestive of pulmonary edema pattern with bilateral pleural effusions. Underlying pneumonia is difficult to exclude radiographically.
01/23/24 Chest US: There is relatively minimal left pleural fluid identified sonographically. Therefore, opacity on radiographic examination is predominantly related to pulmonary parenchymal consolidation.
01/21/24 CXR: moderate left and mild right lower lung findings suggesting pneumonia..
--- NOTE | 2024-01-25 11:04 | W.PN.CD ---
Today's Communication / Plan
-
in sinus rhythm: transition to PO amiodarone
assess to resume eliquis if Hgb remains stable
Impression / Plan
-
Sepsis- PNA, with MRSA bacteremia:
-HD catheter removed
-severe, requiring IV ABX and supplemental O2
-ID is following
-on O2 NC
PAF, Atrial flutter (likely typical):
-patient with known PAF per chart
-on Eliquis for OAC as OP ([id number] score at least 5 age, female, HTN, CHF). However, held in setting of worsening anemia requiring transfusion
-continue Coreg
-back in sinus after IV amiodarone: transition to PO load 400mg bid for 2 weeks (through 02/07), then 200mg daily
-would plan for short term course, 2-3 months, as she recovers from critical illness
Anemia:
-zoqrh-vb-wigtjal
-no obvious bleeding source
-s/p 1 units PRBC's
-Eliquis held for now
ESRD:
-on HD, nephro following
Chronic HFpEF:
-echo 01/20: EF 55-60%, moderate MR
-volume management with HD
-CXR today with pulmonary edema pattern with bilateral pleural effusions
Moderate MR
-monitor
Physical Exam
Vital Signs/Labs
Vital Signs
Temp Pulse Resp BP Pulse Ox
97.4 F 69 22 119/109 92
01/25/24 11:03 01/25/24 10:57 01/25/24 10:57 01/25/24 09:01 01/25/24 11:02
01/24/24 01/25/24 01/26/24
06:59 06:59 06:59
Actual Weight 58.1 kg
01/25/24 03:49
01/25/24 03:49
Magnesium 2.1 mg/dl (1.6-2.3) 01/25/24 03:49
Physical Exam
Constitutional: No acute distress
EENT: Moist mucous membranes
Cardiovascular: Rhythm & rate is regular, Pedal edema is absent, JVD pressure is normal and Systolic murmur absent
Respiratory: Labored respirations
GI: Soft and Distention absent
Neuro/Psych: AO x 3
Data Reviewed
-
Date of Service: January 25, 2024
EKG: Other (Tele: A fib-->NSR)
Labs: Labs Reviewed by me
--- NOTE | 2024-01-25 11:06 | CM ---
Brief visit with Kalyn at bedside today. She was sitting up in a chair receiving blood. She was somewhat confused and unable to provide any history. CM will follow with discharge plan updates as hospitalization progresses
D/C plan: Preferred SNF ([facility] or [facility]) with outpatient HD treatment in [facility].
[2024-01-25] MEDS: VANCOCIN HCL 500 MG 100 IV (11:14)
[2024-01-25] MEDS: PACERONE 400 MG PO ×2 (11:15→20:49)
--- NOTE | 2024-01-25 12:27 | PTCARENOTE ---
Pt.'s SpO2 dropping to 85-86% on HFNC 50L/80%. RT increased HFNC settings to 50L/100%. SpO2 improved to 92%. Pt. worked w PT/OT today and was able to sit @ side of bed for max activity. Assisted w repositioning in bed per protocol. Amio gtt of
per orders and admin PO amio-see MAR. Speech therapy to bedside this AM, downgraded diet to puree w thins. Family @ bedside, updated on plan of care. Goals of care discussions in progress w pt and family.
[2024-01-25] MEDS: INVANZ 55 MG IV (13:49)
--- NOTE | 2024-01-25 14:00 | PTCARENOTE ---
Report given to IMU RN and pt. transported via bed to IMU rm [id number] w belongings and family members. IR to bedside @ this time. No further needs from this RN.
--- NOTE | 2024-01-25 14:36 | PTCARENOTE ---
Recieved patient as transfer from ICU into room 3354. Pt is aaox2, disoriented to time. She is very [place], now has fixed hearing aid in her R ear, which she advised 'no one is to touch.' Pt is deaf in L ear. On monitor, pt in SR. All vital signs are
stable. SPO2 92% on HFNC 50L & 100%. Lungs are coarse throughout and she has a moist nonproductive cough. IRAD currently at bedside to place HD catheter. Assessment and care as documented.
--- NOTE | 2024-01-25 15:10 | PHA.VAN.FU ---
Vancomycin Assessment / Plan
- Assessment
Hemodialysis Schedule: MWF
WBC's are: Trending Up
In the past 24 hrs, patient has been: Afebrile
Concomitant Antimicrobials: ertapenem
- Assessment - Therapeutic Drug Monitoring
Random Level: 10 01/24 03:49
- Dosing Plan
Continue: to dose by level with coordination of HD schedule
Dosing by Level: Re-dose today (500 mg x 1 pre HD, 1000mg post HD)
Pt to get a new catheter placed 01/24. 500 mg x 1 pre HD; 1000 mg post HD
- Monitoring Plan
Random Level: 01/27 am, prior to next HD session
- Follow Up
Pharmacy will continue to follow.
Vancomycin Follow UP
- -
Patient Age: 83
Patient Sex: Female
Vancomycin Day #: 5
Indication: Pulmonary/Respiratory
Requesting Provider: Dr Antoine / Dr Guevara
Pertinent Antimicrobial Allergies:
NKDA
Height / Weight:
Height 5 ft 3 in
Actual Weight 58.1 kg
Pertinent Past Medical History: ESRD on HD MWF
- Vital Signs / Lab Results
Temp Pulse Resp BP Pulse Ox
97.5 F 76 22 134/70 90
01/25/24 14:07 01/25/24 14:04 01/25/24 14:04 01/25/24 13:00 01/25/24 14:04
Lab Results - Hematology
01/23/24 01/24/24 01/25/24
04:14 04:26 03:49
WBC 18.8 H 18.5 H 21.8 H
Band Neutrophils 27 H D
Lab Results - Chemistry
01/23/24 01/24/24 01/24/24
04:14 04:26 11:14
BUN 45 H 31 H 37 H
Creatinine 2.7 H 2.2 H 2.5 H
Estimated Creat Clear 13 16 14
Albumin 2.6 L
01/25/24
03:49
BUN 50 H
Creatinine 2.8 H
Estimated Creat Clear 13
Albumin
01/25/24
03:49
Lactic Acid 1.3
Microbiology Results
01/23/24 15:02 Catheter Tip Culture - Preliminary
Dialysis Line No Growth After 48 Hours
01/23/24 04:14 Blood Culture - Preliminary
Blood/Venous Staphylococcus aureus
Gram Stain - Preliminary
01/23/24 04:14 Blood Culture - Preliminary
Blood/Venous Staphylococcus aureus
Gram Stain - Preliminary
01/21/24 16:46 Urine Culture - Final
Urine Escherichia coli - ESBL
01/24/24 04:26 Blood Culture - Preliminary
Blood/Venous No Growth in 24 hours- Final report to follow
01/21/24 12:51 Blood Culture - Final
Blood/Venous Staph aureus MRSA
Gram Stain - Final
01/21/24 12:51 Blood Culture - Final
Blood/Venous Staph aureus MRSA
Gram Stain - Final
Therapeutic Drug Monitoring
Random Vancomycin 10.0 ug/ml 01/25/24 03:49
[2024-01-25] MEDS: MYLICON 80 MG PO (16:33)
[2024-01-25] MEDS: ProAmatine 10 MG PO (16:34)
[2024-01-25] MEDS: MYCOSTATIN ORAL SUSPENSION PO (16:48)
--- NOTE | 2024-01-25 16:54 | W.PN.NEPH.HD ---
Assessment
-
paitent seen on HD
sbp stable ~150 for u/f
Progress Note - Hemodialysis
-
Date of Service: January 25, 2024
Duration: 30 minutes and 3 hours
Potassium Bath: 3
Calcium Bath: 2.5
Opti-Dialyzer: 160
Ultrafiltration: Other (1-2kg)
Dialysate Flow: 600
Heparin: none
EPO: 10K
[2024-01-25] MEDS: RETACRIT 10000 UNITS IV (18:27)
[2024-01-25] MEDS: VANCOCIN 200 IV (19:01)
[2024-01-25] MEDS: HEPARIN 2400 UNITS INTRACATH (20:24)
[2024-01-25] MEDS: INVANZ 51.5 MG IV (20:52)
[2024-01-25 20:57] LABS: Glucose - Point of Care 124 mg/dl (70-99)
[2024-01-25] MEDS: REMERON 7.5 MG PO (21:03)
--- NOTE | 2024-01-25 21:30 | PTCARENOTE ---
Assume care from AM RN. AAOx2, disoriented to time, forgetful at times. [place], now has fixed hearing aid in her rt ear. NSR w/ 1st degree block. VSS. SPO2 92% on HFNC 50L & 100%. Lungs are coarse throughout and she has a moist productive [place] thick
mucus cough. Shallow tachypneic. Pt finished getting HD. Assessment documented. Will cont w/ treatment.
[2024-01-26] VITALS (13 sets, daily range): BP systolic 124–140; BP diastolic 63–87; BMI 22.3
[2024-01-26] MEDS: MYCOSTATIN ORAL SUSPENSION PO ×2 (04:05→17:23)
[2024-01-26] MEDS: SYNTHROID 100 MCG PO (04:08)
[2024-01-26 04:35] LABS: Hematocrit 25.8 % (37.0-47.0); Hemoglobin 8.8 g/dL (12.0-16.0); Mean Corp Hgb Conc. 34.1 g/dL (33.0-37.0); Mean Corpuscular Hgb 29.8 pg (27.0-31.0); Mean Corpuscular Volume 87.5 fL (81.0-99.0); Red Blood Cell Count 2.95 10^6/uL (4.20-5.40); Red Cell Dist. Width 16.9 % (11.5-14.5); White Blood Cell Count 22.7 10^3/uL (4.8-10.8)
[2024-01-26 04:58] LABS: Blood Urea Nitrogen 21 mg/dl (7-17); Calcium 8.6 mg/dl (8.4-10.2); Carbon Dioxide 26 mmol/L (22-30); Chloride 95 mmol/L (98-107); Estimated Creatinine Clearance 20 ml/min; Glucose 108 mg/dl (70-99); Potassium 3.8 mmol/L (3.5-5.1); Sodium 131 mmol/L (135-145); eGFR 27.61
[2024-01-26 06:04] LABS: Mean Platelet Volume 10.8 fL (7.4-10.4); Platelet Count 199 10^3/uL (130-400); Segmented Neutrophils 65 % (42-75)
[2024-01-26 06:05] LABS: Absolute Neutrophils -Man Diff 17.9 10^3/uL (1.4-6.5); Band Neutrophils 14 % (0-3); Lymphocytes 7 % (20-51); Metamyelocytes 8 % (-); Monocytes 3 % (2-9); Myelocytes 2 % (-); Platelets Checked Yes
[2024-01-26 06:07] LABS: Normal RBC Morphology No; Total Cells Counted 100
[2024-01-26 06:08] LABS: Anisocytosis 1+; Hypochromasia 2+; Toxic Granulation 1+; Vacuolated Segs Occasional
[2024-01-26 06:10] LABS: Hypersegmented Neutrophil Occasional; Ovalocytes Occasional
[2024-01-26 06:11] LABS: Target Cells Occasional
[2024-01-26] MEDS: PULMICORT 0.5 MG INH ×2 (07:12→19:38)
[2024-01-26] MEDS: DUONEB 3 ML INH ×4 (07:12→19:38)
--- NOTE | 2024-01-26 09:03 | W.PN.HOSP.TC ---
Today's Communication/Plan
-
Continue high flow oxygen. Continue IV antibiotics. Psychiatry consult.
Assessment / Plan
Assessment / Plan
Physical exam:
General: Acutely ill
HEENT: Normocephalic, Atraumatic and Moist Mucous Membranes
Respiratory: Coarse crackles in both bases more pronounced on the right; Negative Wheezes or Rhonchi
Cardiac: Regular rate and rhythm, and S1/S2, systolic murmur radiating to axilla
GI: Soft, Nontender and Nondistended
Musculoskeletal: No Clubbing, No Cyanosis and B/L Edema
Neuro: Awake, Alert and Oriented, generalized weakness but no gross neuro-deficits.
Psych: Flat affect
Echocardiogram:
LV ejection fraction is 55-60%. No regional wall motion abnormalities are seen.
Normal right ventricular size and function.
Severely dilated left atrium. Moderately dilated right atrium.
Moderate, eccentric mitral regurgitation.
No prior study available for comparison.
A/P:
Acute hypoxic respiratory failure:
Multifactorial in etiology likely pneumonia and volume overload, also a fib.
Remains on high flow oxygen 50 L at 80% down from 100% yesterday but still significant oxygen requirements. Pulse ox in the 90% range with this.
HD cont per renal
Continue broad-spectrum IV antibiotics
Discussed with RN
Updated niece over the phone prior
Sepsis due to Staph aureus bacteremia/pneumonia/?UTI:
Blood cultures positive for staph--> repeat blood cultures from 01/23 no growth so far
Obtained culture from tip of the catheter as well and no growth so far
Sputum culture positive for staph
Continue IV vancomycin
She is also now on IV Ertapenem
Urine cultures with gram-negative megan
WBC 24.8---> 22.7
Lactate remains at 3.3-->1.3
Legionella, strep, influenza, COVID-19 all tests negative.
Transthoracic echocardiogram reviewed
Removed HD catheter after hemodialysis yesterday and IR placed temporary.
ID consult appreciated
Depression versus adjustment disorder:
Will request psychiatry consult ([place] texted to psychiatry today)
Paroxysmal Atrial fibrillation rapid ventricular response/atypical atrial flutter as well:
Remains normal sinus rhythm
Anticoagulation to restart today
Discussed with cardiology today
Continue IV Lopressor as needed
Cardiology consult appreciated
Amiodarone IV switch to oral yesterday, 400 mg twice a day
On carvedilol 6.25 mg twice a day
Anemia:
Appears a combination of anemia of chronic disease mainly and iron deficiency. Likely due to anemia of chronic disease worsening and no evidence of acute blood loss anemia at the moment.
S/P Blood transfusion, Hb 6.7-->9-->8.8
Monitor hemoglobin closely
Acute on chronic diastolic CHF:
Manage volume via dialysis
Transthoracic echo updated
Dysphagia:
Speech therapy evaluation and recommended start diet level 6
Mental status changes:
Suspect delirium related but if any focality on exam or persistent, then would consider brain images rule out stroke or infectious embolic events. Improvement noticed.
Hyponatremia:
Sodium 131 today
Nephro following
Elevated troponin:
Elevated troponin likely due to non-ischemic myocardial injury in the setting of sepsis and end-stage renal disease
Echocardiogram reviewed and no WMA, normal EF.
Hyperglycemia:
Likely due to stress
Hemoglobin A1c 5.3
Cont low-dose insulin sliding scale
End-stage renal disease on hemodialysis:
Nephrology consult and follow-up appreciated
Dialysis per nephrology
Plan for HD on Sunday
Hypotension:
On midodrine
Hypothyroidism:
Continue thyroid replacement
COPD:
No need for systemic steroids
No bronchospasm
Continue Pulmicort inhaler twice a day.
Continue DuoNebs 4 times daily
History of cardiac arrest/PEA back in November:
Invasive strategy has not been pursued due to multiple medical issues
History of probable renal artery stenosis:
Needs further investigation later down the road.
DVT prophylaxis:
Eliquis
CODE STATUS:
Full code
Total time spent on today's encounter was 52 minutes which included time spent in counseling the patient/family regarding diagnosis and treatment plan as listed above, goals of care, and symptom management. Case was discussed with nursing staff,
specialists, and care coordinators/case management. All labs and imaging personally reviewed by me. Remainder the time spent in detailed review of previous records, lab data, imaging, and other medical provider documentation.
Anticipated Discharge: > 48 hours
Subjective/Interval History
-
Date of Service: January 26, 2024
Patient remains on high flow oxygen. Afebrile. Decreased appetite. RN reports feels down/depressed
Objective Data
-
Labs:
Laboratory Results
01/26/24
03:44
WBC 22.7 H
Hgb 8.8 L
Hct 25.8 L
Plt Count 199
Sodium 131 L D
Potassium 3.8
Chloride 95 L
Carbon Dioxide 26
BUN 21 H
Creatinine 1.8 H
Glucose 108 H
Calcium 8.6
Vital Signs:
Vital Signs
Temp Pulse Resp BP Pulse Ox
97.4 F 82 20 133/87 96
01/26/24 07:51 01/26/24 07:21 01/26/24 07:21 01/26/24 06:00 01/26/24 07:21
I&O
01/25/24 01/26/24 01/27/24
06:59 06:59 06:59
Intake Total 1196.8 / 1213.5 403.5 / 403.5
Balance 1196.8 / 1213.5 403.5 / 403.5
--- NOTE | 2024-01-26 09:12 | W.PN.NEPH.PH ---
Today's Communication / Plan
-
Hd sunday
Assessment/Plan
-
Impression:
Hypoxic respiratory failure
MRSA bacteremia
Suspected MRSA pneumonia
Suspected pneumonia with possible underlying congestive heart failure
End-stage renal disease (new dx within a month with suspected ATN origin following out of hospital cardiac arrest)
Hypertension
Paroxysmal A-fib
Suspected bilateral renal artery stenosis
Hypothyroidism
Anemia
Plan:
with MRSA bacteremia and PNA,s/p HD catheter removal on 01/22, tip for culture: remains on vancomycin
White cell count continues to rise but no fever
Status temp catheter placement 01/24
Next dialysis will be planned for Sunday, January 27
continue midodrine support for BPs on HD
apparently volume removal as outpatient has been complicated by hypotension
Echocardiogram reviewed preserved EF, mod MR
Anemia-acute drop s/p PRBC 01/23, no overt bleeding noted on AC
XIN will be provided for anemia of chronic kidney disease
Antibiotic therapy per ID,on mid flow O2 15lit
hyponatremia-dilutional
renal diet and FR 1200 cc/day
Patient remains critically ill on high flow oxygen in setting of MRSA bacteremia and MRSA pneumonia
Discussed with ICU attending
-
-
Date of Service: January 26, 2024
CC / HPI / ROS
-
Chief Complaint:
ESRD
History of Present Illness:
ESRD MWF at [facility]
Hemodynamically stable with out pressors
hb 8.5 following transfusion
Leukocytosis persist on Vanco or ertepenem
Remains on oral amio re: afib, now in NSR
Review of Systems:
Remains on high flow oxygen support with productive cough
No new fevers
no reported pain or sob at rest
severe [place], communicates through writing
Labs
-
Labs:
WBC 22.7 10^3/uL (4.8-10.8) H 01/26/24 03:44
RBC 2.95 10^6/uL (4.20-5.40) L 01/26/24 03:44
Hgb 8.8 g/dL (12.0-16.0) L 01/26/24 03:44
Hct 25.8 % (37.0-47.0) L 01/26/24 03:44
Plt Count 199 10^3/uL (130-400) 01/26/24 03:44
Sodium 131 mmol/L (135-145) L D 01/26/24 03:44
Potassium 3.8 mmol/L (3.5-5.1) 01/26/24 03:44
Chloride 95 mmol/L (98-107) L 01/26/24 03:44
Carbon Dioxide 26 mmol/L (22-30) 01/26/24 03:44
BUN 21 mg/dl (7-17) H 01/26/24 03:44
Creatinine 1.8 mg/dL (0.6-1.0) H 01/26/24 03:44
eGFR 27.61 01/26/24 03:44
Glucose 108 mg/dl (70-99) H 01/26/24 03:44
Calcium 8.6 mg/dl (8.4-10.2) 01/26/24 03:44
Albumin 2.6 g/dl (3.5-5.0) L 01/23/24 04:14
Physical Exam
-
Vital Signs:
Vital Signs
Temp Pulse Resp BP Pulse Ox
97.4 F 82 20 133/87 96
01/26/24 07:51 01/26/24 07:21 01/26/24 07:21 01/26/24 06:00 01/26/24 07:21
Cardiovascular:: Regular rate and rhythm
Respiratory:: Bilateral: Coarse
Lung Excursion:: Normal
Abdomen:: Nontender
Bowel Sounds:: Normal
Extremity Edema:: +1: Bilateral: (trace)
[place] Catheter: No
[2024-01-26] MEDS: PACERONE 400 MG PO ×2 (09:17→19:47)
[2024-01-26] MEDS: COREG 6.25 MG PO ×2 (09:17→19:47)
--- NOTE | 2024-01-26 09:21 | W.PN.ID1 ---
Date of Service
Date of Service: January 26, 2024
Today's Communication
Continue antibiotics
Assessment / Plan
# MRSA PNA with acute hypoxic resp failure on High flow O2
# MRSA bacteremia (4 sets bcx's thus far)
# Severe sepsis
Leukocytosis trending up
# ESRD on HD
# recent hx cardiac arrest
- Repeat blood cultures until clear.
- TTE no gross vegetation
- 01/22 HD catheter dc'd, tip cx NG@48h
- Continue Vancomycin.
- Trend wbc, oxygen requirement
- temporary dialysis cath in place
# ESBL-E. coli bacteruria vs UTI
- continue ertapenem 500mg IV q24 x 3d.
# Additional Past Medical History:
ESRD on HD via catheter
HTN
Paroxysmal atrial fibrillation
Diastolic CHF
Renal artery stenosis
history of cardiorespiratory arrest (07/2023)
Hypothyroidism
Congenital left facial droop
Left Ankle fracture surgery
Chief Complaint
-: Leukocytosis, Pneumonia and Bacteremia
Vital Signs / Physical Exam
Vital Signs
Vital Signs
Temp Pulse Resp BP Pulse Ox
97.4 F 81 20 131/76 96
01/26/24 07:51 01/26/24 09:17 01/26/24 07:21 01/26/24 09:17 01/26/24 07:21
Physical Exam
Constitutional: No Acute Distress, Comfortable and Non-toxic
Eyes: No Conjunctival Hemorrhage and Sclera Anicteric
Cardiovascular: S1/S2; Negative S3/S4
Pulmonary: Non Labored
Gastrointestinal: Soft and Non Distended
Neurological: Awake and Alert
Lines: HD Cath (Right IJ temp HD cath)
Objective Data
Lab Data
Lab Results
01/26/24 03:44
01/26/24 03:44
Estimated Creat Clear 20 ml/min 01/26/24 03:44
Lactic Acid 1.3 mmol/L (0.7-2.0) 01/25/24 03:49
Total Bilirubin 0.8 mg/dl (0.2-1.3) 01/23/24 04:14
AST 28 U/L (14-36) 01/23/24 04:14
ALT 14 U/L (0-35) 01/23/24 04:14
Alkaline Phosphatase 114 U/L (38-126) 01/23/24 04:14
Most recent labs reviewed.
Micro Results:
01/23/24 04:14 Blood Culture - Preliminary
Blood/Venous Staph aureus MRSA
Gram Stain - Preliminary
01/23/24 04:14 Blood Culture - Preliminary
Blood/Venous Staph aureus MRSA
Gram Stain - Preliminary
01/24/24 04:26 Blood Culture - Preliminary
Blood/Venous No Growth in 48 hours- Final report to follow
01/25/24 03:49 Blood Culture - Preliminary
Blood/Venous No Growth in 24 hours- Final report to follow
01/23/24 15:02 Catheter Tip Culture - Preliminary
Dialysis Line No Growth After 48 Hours
01/21/24 16:46 Urine Culture - Final
Urine Escherichia coli - ESBL
01/21/24 12:51 Blood Culture - Final
Blood/Venous Staph aureus MRSA
Gram Stain - Final
01/21/24 12:51 Blood Culture - Final
Blood/Venous Staph aureus MRSA
Gram Stain - Final
01/21/24 16:15 Respiratory Culture - Final
Sputum Staph aureus MRSA
Gram Stain - Final
01/21/24 16:46 Nasal Screen MRSA (PCR) - Final
Nose Staph aureus MRSA
01/21/24 16:46 Legionella Urinary Antigen - Final
Urine Negative for Legionella pneumophila Serogroup 1 antigen.
A negative result does not rule out the possiblity of
Legionella infection due to other serogroups or species of
Legionella. Clinical correlation is recommended.
Streptococcus pneumoniae Antigen (M - Final
Negative for Streptococcus pneumoniae antigen.
A negative result does not exclude infection with
Streptococcus pneumoniae. Clinical correlation is
recommended.
01/21/24 12:51 Influenza Types A & B (DINORAH) - Final
Nasal Swab Negative for Influenza A & B, NAAT
Negative results must be combined with clinical observations
and patient history.
Nucleic Acid Amplification test (NAAT)performed on the
[employer] platform.
01/25/24 CXR: Radiographic findings are most suggestive of pulmonary edema pattern with bilateral pleural effusions. Underlying pneumonia is difficult to exclude radiographically.
01/23/24 Chest US: There is relatively minimal left pleural fluid identified sonographically. Therefore, opacity on radiographic examination is predominantly related to pulmonary parenchymal consolidation.
01/21/24 CXR: moderate left and mild right lower lung findings suggesting pneumonia..
--- NOTE | 2024-01-26 10:05 | PHA.VAN.FU ---
Vancomycin Assessment / Plan
- Assessment
Hemodialysis Schedule: MWF
WBC's are: Trending Up (21.8>22.7)
In the past 24 hrs, patient has been: Afebrile
Concomitant Antimicrobials: Ertapenem
- Dosing Plan
Dosing by Level: Hold off on dosing today (dose on HD days. Next HD 01/28/24)
- Monitoring Plan
Random Level: Ordered for 01/28/24 at 06:00
- Follow Up
Pharmacy will continue to follow.
Vancomycin Follow UP
- -
Patient Age: 83
Patient Sex: Female
Vancomycin Day #: 6
Indication: Pulmonary/Respiratory
Requesting Provider: Dr Antoine / Dr Guevara
Pertinent Antimicrobial Allergies:
NKDA
Height / Weight:
Height 5 ft 3 in
Actual Weight 57.2 kg
Pertinent Past Medical History: ESRD on HD MWF
- Vital Signs / Lab Results
Temp Pulse Resp BP Pulse Ox
97.4 F 81 21 131/76 99
01/26/24 07:51 01/26/24 09:17 01/26/24 09:00 01/26/24 09:17 01/26/24 09:51
Lab Results - Hematology
01/24/24 01/25/24 01/26/24
04:26 03:49 03:44
WBC 18.5 H 21.8 H 22.7 H
Band Neutrophils 14 H D
Lab Results - Chemistry
01/24/24 01/24/24 01/25/24
04:26 11:14 03:49
BUN 31 H 37 H 50 H
Creatinine 2.2 H 2.5 H 2.8 H
Estimated Creat Clear 16 14 13
01/26/24
03:44
BUN 21 H
Creatinine 1.8 H
Estimated Creat Clear 20
01/25/24
03:49
Lactic Acid 1.3
Microbiology Results
01/23/24 04:14 Blood Culture - Preliminary
Blood/Venous Staph aureus MRSA
Gram Stain - Preliminary
01/23/24 04:14 Blood Culture - Preliminary
Blood/Venous Staph aureus MRSA
Gram Stain - Preliminary
01/24/24 04:26 Blood Culture - Preliminary
Blood/Venous No Growth in 48 hours- Final report to follow
01/25/24 03:49 Blood Culture - Preliminary
Blood/Venous No Growth in 24 hours- Final report to follow
01/23/24 15:02 Catheter Tip Culture - Preliminary
Dialysis Line No Growth After 48 Hours
01/21/24 16:46 Urine Culture - Final
Urine Escherichia coli - ESBL
01/21/24 12:51 Blood Culture - Final
Blood/Venous Staph aureus MRSA
Gram Stain - Final
01/21/24 12:51 Blood Culture - Final
Blood/Venous Staph aureus MRSA
Gram Stain - Final
Therapeutic Drug Monitoring
Random Vancomycin 10.0 ug/ml 01/25/24 03:49
--- NOTE | 2024-01-26 10:42 | W.PN.CD ---
Today's Communication / Plan
-
Eliquis 2.5 mg bid resumed
Continue Coreg
Back in sinus after IV amiodarone: transitioned to PO load 400mg bid for 2 weeks (through 02/07), then 200mg daily
-would plan for short term course, 2-3 months, as she recovers from critical illness
discussed with hospitalist: please call us back with additional questions
Impression / Plan
-
Sepsis- PNA, with MRSA bacteremia: improving
-HD catheter removed
-severe, requiring IV ABX and supplemental O2
-ID is following
-on O2 NC
PAF, Atrial flutter (likely typical):
-patient with known PAF per chart
-on Eliquis for OAC as OP ([id number] score at least 5 age, female, HTN, CHF). Eliquis 2.5 mg bid resumed.
-continue Coreg
-back in sinus after IV amiodarone: transitioned to PO load 400mg bid for 2 weeks (through 02/07), then 200mg daily
-would plan for short term course, 2-3 months, as she recovers from critical illness
ESRD:
-on HD, nephro following
Chronic HFpEF:
-echo 01/20: EF 55-60%, moderate MR
-volume management with HD
Moderate MR
-monitor
Physical Exam
Vital Signs/Labs
Vital Signs
Temp Pulse Resp BP Pulse Ox
97.4 F 81 21 131/76 99
01/26/24 07:51 01/26/24 09:17 01/26/24 09:00 01/26/24 09:17 01/26/24 09:51
01/25/24 01/26/24 01/27/24
06:59 06:59 06:59
Actual Weight 57.2 kg
01/26/24 03:44
01/26/24 03:44
Magnesium 2.1 mg/dl (1.6-2.3) 01/25/24 03:49
Physical Exam
Constitutional: No acute distress and Comfortable
EENT: Moist mucous membranes
Cardiovascular: Rhythm & rate is regular, Pedal edema is absent, JVD pressure is normal and Systolic murmur present
Respiratory: Labored respirations
GI: Soft and Distention absent
Neuro/Psych: AO x 3
Data Reviewed
-
Date of Service: January 26, 2024
EKG: Other (tele: NSR 70s)
Labs: Labs Reviewed by me
[2024-01-26] MEDS: MYCOSTATIN ORAL SUSPENSION 5 ML PO ×2 (12:15→23:04)
--- NOTE | 2024-01-26 13:51 | CS.PSYCHR ---
Consult Summary - Psychiatry
-
Pt is an 82 yo female with history of end-stage renal disease on hemodialysis, hypertension, CHF, A-fib, presented to the hospital shortness of breath, productive cough, admitted with acute respiratory failure, dx'd with MRSA pneumonia/bacteremia.
Psychiatry asked to evaluate depression. Pt has hx of depression and anxiety, on Valium in the past. Pt currently on Remeron 7.5 HS (very low dose) more for anxiety/insomnia. Sodium low on admission- 128, improved to 131 today, felt to be
dilutional. Pt seen with sister at her side; pt hard of hearing. Pt awake, making eye contact, answering questions. She endorses feeling depressed, uncertain about her future, still interested in being with her family. Denies suicidal thoughts.
No agitation or psychotic symptoms noted/evident. Pt states she is willing to try an additional antidepressant.
PMH: ESRD on HD, HTN, Parox A fib, CHF, Renal artery stenosis, Hypothyroidism, Congenital left facial droop, Cardiac arrest 6 months ago, HARSHA due to ATN resulting in need for HD
Psych hx: unspecified anxiety/depression. Unable to obtain full history. Previous Rx Valium. On Remeron 7.5 mg HS; No other prior antidepressant med noted
SH: Per case mgt note, pt living alone in an apartment in [facility], started HD treatment 6 months ago and was placed to [facility] 3 weeks [employer]. Pt still has her apartment but family feels she will not be able to live there alone
MSE: awake, mostly oriented, interacting with family members, making eye contact. Pt still critically ill, in moderate distress, occasional productive cough, will requiring high rate of O2. Affect dysphoric, mood depressed. Insight fair.
Imp: Unspecified depression, moderate, situational
Delirium due to medical conditions, improving
Rec: trial of Lexapro 5 mg Daily
continue low dose Remeron at HS
Psychiatry will follow
[2024-01-26] MEDS: INVANZ 55 MG IV (13:57)
--- NOTE | 2024-01-26 14:10 | W.PN.PUL3 ---
Today's Communication / Plan
-
Transition to oral amiodarone
Continue antibiotics
HD per nephrology
Wean oxygen
Nutrition continues to be a concern
CODE STATUS ongoing discussion, goals of care
Assessment
-
83-year-old female with history of atrial fibrillation on anticoagulation, history of [id number] cardiac arrest in the past complicated by end-stage renal disease, on hemodialysis who presents with suspected bilateral patchy pneumonia,
leukocytosis, worsening hypoxia. Patient admitted to ICU for further management 01/21/2024
Acute hypoxic respiratory insufficiency
Requiring nonrebreather, transition to high flow
Bilateral infiltrates, suspected pneumonia
Leukocytosis, bandemia
Anemia
ESRD on HD (M/W/F)
Hyponatremia hyperglycemia
Mildly elevated troponin
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
Normal biventricular function
Intermittent tachycardia, atrial fibrillation
Conditions present prior to admission
Hypertension/hyperlipidemia hypothyroidism
History of OOHCA/PEA November 2023
VDRF
c/b ATN/ESRD
Aspirated tooth secondary to traumatic intubation November 2023
Required bronchoscopy with retrieval on right side
Atrial fibrillation on anticoagulation
Hx of Hypothyroidism
History of COPD
[id number] history of smoking quit 1989
Plan/recommendations
At this time, patient i appears to be overall improved, however still requiring high flow oxygen
Appears more comfortable, less use of accessory muscles
Tachycardia noted, heart rate varies from 80s to 140s, converted to sinus rhythm, on amiodarone drip, now transition to oral
Chest ultrasound without significant fluid for thoracentesis
HD catheter placed 01/24
Significant smoking history noted
Chest x-ray today with persistent bilateral patchy infiltrate per my review. Improved left pleural effusion
ABG 7.48/32/214. No evidence of CO2 retention
Moving forward
Continue with empiric antibiotics, transition from cefepime/vancomycin to ertapenem/vancomycin
Cultures positive for Staphylococcus in the sputum, MRSA swab and MRSA bacteremia
Echocardiogram without evidence of vegetation
ID following
HD catheter removed 01/23/2024
Legionella and streptococcal pneumonia antigen negative
HD/trialysis catheter placed 01/24
Continue nebulized therapy, chest percussion, sport bed, chest percussion, Acapella/incentive spirometry
Minimize any sedation
Patient cough seems to be getting stronger
Head of bed elevated, aspiration precautions
Speech and swallow evaluation, will reevaluate as she appears to be stronger today
Unfortunately nutrition continues to be an issue
Doubt heart failure. Echocardiogram with normal biventricular function, eccentric MR noted
Apparently had echocardiogram while in [facility] with mild to moderate MR at that time
Elevated troponins noted, trend
Atrial fibrillation with rapid rates at times, patient appears to be without symptoms, now converted to sinus rhythm
Lopressor as needed amiodarone continues Eliquis
Resumed 2.5 mg twice a day
Cardiology is recommending amiodarone for 2 to 3-month course
Hemodialysis continues Sunday/Sunday/Sunday
Midodrine continues per nephrology
Hyponatremia noted
Patient did have an aspirated tooth with difficult intubation/traumatic intubation while in [facility] requiring a bronchoscopy with tooth retrieval on right side of the lung
Poor dentition is noted
Follow blood sugars
Low-dose insulin sliding scale. Hyperglycemia noted
PT/OT. Patient has refused in the past. This will be critical to continue
DVT prophylaxis: Eliquis 2.5 mg twice a day. History of atrial fibrillation noted
GI prophylaxis: Not indicated at this time
Disposition efforts
Subjective Data
-
Date of Service:
Date of Service: January 26, 2024
Subjective:
Patient seen and examined earlier this morning. Remains lethargic on high flow. Patient is without complaints
Objective Data
Data Reviewed
Vital Signs / I&O / Oxygen:
Vital Signs
Temp Pulse Resp BP Pulse Ox
98.1 F 77 21 124/63 95
01/26/24 11:45 01/26/24 11:13 01/26/24 11:13 01/26/24 10:00 01/26/24 14:04
Intake and Output
01/25/24 01/26/24 01/27/24
06:59 06:59 06:59
Intake Total 1196.8 / 1213.5 403.5 / 403.5 535 / 535
Balance 1196.8 / 1213.5 403.5 / 403.5 535 / 535
SaO2 95
Nasal Cannula flow liters per 50
minute
Physical Exam
General: Comfortable (Cachectic)
HEENT: Normocephalic, Anicteric, Other (Right IJ trialysis catheter) and Other (Left eye cannot be closed, left facial droop)
Cardiovascular: S1-S2, Irregular Rhythm, Murmur (2/6 systolic murmur) and Rub (n)
Respiratory: Wheeze (n), Crackles (n), Rhonchi (n) and Non-Labored Respirations
GI: Soft, Non Distended and Non Tender
Neurology: Awake and Alert (Hard of hearing)
Skin: Good Color, Cyanosis (n), Jaundice (n) and Rash (n)
Labs/Micro/Reports
Lab Data
01/26/24 03:44
01/26/24 03:44
Microbiology
01/23/24 15:02 Dialysis Line Catheter Tip Culture - Final
No Growth After 72 Hours
01/23/24 04:14 Blood/Venous Blood Culture - Preliminary
Staph aureus MRSA
01/23/24 04:14 Blood/Venous Gram Stain - Preliminary
01/23/24 04:14 Blood/Venous Blood Culture - Preliminary
Staph aureus MRSA
01/23/24 04:14 Blood/Venous Gram Stain - Preliminary
01/24/24 04:26 Blood/Venous Blood Culture - Preliminary
No Growth in 48 hours- Final report to follow
01/25/24 03:49 Blood/Venous Blood Culture - Preliminary
No Growth in 24 hours- Final report to follow
01/21/24 16:46 Urine Urine Culture - Final
Escherichia coli - ESBL
01/21/24 12:51 Blood/Venous Blood Culture - Final
Staph aureus MRSA
01/21/24 12:51 Blood/Venous Gram Stain - Final
01/21/24 12:51 Blood/Venous Blood Culture - Final
Staph aureus MRSA
01/21/24 12:51 Blood/Venous Gram Stain - Final
--- NOTE | 2024-01-26 15:32 | PTCARENOTE ---
Assumed care of patient this morning. She is alert and can make her needs know, particular at times. Oxygen has been stable throughout shift and weaning HFNC as able and per RT. Now on 50L/60%. Lungs are coarse and rhonchorous. She has a moist cough
but reports not bringing up sputum. Aspiration precautions maintained and supervision with meals. Oral care performed. Pt does need encouragement to take oral Nystatin. Pt with very poor appetite. Dietary consult ordered per nursing protocol. Pt has
no complaints at this time. Assessment, care and VS as charted.
[2024-01-26] MEDS: ELIQUIS 2.5 MG PO (19:47)
--- NOTE | 2024-01-26 21:00 | PTCARENOTE ---
Assume care from AM RN. VSS. AAOx2. withdrawn and forgetful and flat affect. BIG SANDY. NSR w/ 1st degree block. Wk pulses. Pt remains in HF 50L 60%. Lung sounds are coarse. Pt having a moist productive cough, christianson thick mucus. Q2 turn as tolerated.
Assessment documented. Pt appears comfortable in bed and call alex within reach.
[2024-01-26] MEDS: REMERON 7.5 MG PO (21:03)
[2024-01-27] VITALS (13 sets, daily range): BP systolic 135–154; BP diastolic 67–82; BMI 22.6
[2024-01-27] MEDS: SYNTHROID 100 MCG PO (04:19)
[2024-01-27 04:35] LABS: Hematocrit 26.7 % (37.0-47.0); Hemoglobin 8.8 g/dL (12.0-16.0); Mean Corpuscular Hgb 29.4 pg (27.0-31.0); Mean Corpuscular Volume 89.3 fL (81.0-99.0); Mean Platelet Volume 10.7 fL (7.4-10.4); Platelet Count 207 10^3/uL (130-400); Red Blood Cell Count 2.99 10^6/uL (4.20-5.40); Red Cell Dist. Width 17.2 % (11.5-14.5); White Blood Cell Count 26.7 10^3/uL (4.8-10.8)
[2024-01-27 05:00] LABS: Blood Urea Nitrogen 40 mg/dl (7-17); Calcium 8.9 mg/dl (8.4-10.2); Carbon Dioxide 28 mmol/L (22-30); Chloride 91 mmol/L (98-107); Estimated Creatinine Clearance 13 ml/min; Glucose 114 mg/dl (70-99); Potassium 4.6 mmol/L (3.5-5.1); Sodium 127 mmol/L (135-145); eGFR 16.25
[2024-01-27] MEDS: MYCOSTATIN ORAL SUSPENSION 5 ML PO ×4 (05:41→21:51)
[2024-01-27 06:26] LABS: Band Neutrophils 9 % (0-3); Segmented Neutrophils 70 % (42-75)
[2024-01-27 06:27] LABS: Lymphocytes 10 % (20-51); Metamyelocytes 6 % (-); Monocytes 2 % (2-9); Myelocytes 3 % (-)
[2024-01-27 06:28] LABS: Normal RBC Morphology Yes; Platelets Checked Yes; Total Cells Counted 100
[2024-01-27] MEDS: DUONEB 3 ML INH ×4 (07:51→20:36)
[2024-01-27] MEDS: PULMICORT 0.5 MG INH ×2 (07:52→20:36)
[2024-01-27] MEDS: SODIUM CHLORIDE 3% FOR INHALATION 1 VIAL INH ×2 (07:52→20:37)
[2024-01-27] MEDS: PACERONE 400 MG PO ×2 (08:43→19:39)
[2024-01-27] MEDS: LEXAPRO 5 MG PO (08:45)
[2024-01-27] MEDS: COREG 6.25 MG PO ×2 (08:45→19:39)
[2024-01-27] MEDS: ELIQUIS 2.5 MG PO ×2 (08:46→19:39)
--- NOTE | 2024-01-27 09:34 | W.PN.ID1 ---
Date of Service
Date of Service: January 27, 2024
Today's Communication
Continue antibiotics
Assessment / Plan
# MRSA PNA with acute hypoxic resp failure on High flow O2
# MRSA bacteremia (4 sets bcx's thus far)
# Severe sepsis
Leukocytosis continues to trend up, although patient remains afebrile. ?reactive
# ESRD on HD
# recent hx cardiac arrest
- Repeat blood cultures until clear.
- TTE no gross vegetation
- 5/8 HD catheter dc'd, tip cx NG@48h
- Continue Vancomycin.
- Trend wbc, oxygen requirement
- temporary dialysis cath in place
# ESBL-E. coli bacteruria vs UTI
- continue ertapenem 500mg IV q24 x 3d.
# Additional Past Medical History:
ESRD on HD via catheter
HTN
Paroxysmal atrial fibrillation
Diastolic CHF
Renal artery stenosis
history of cardiorespiratory arrest (07/2023)
Hypothyroidism
Congenital left facial droop
Left Ankle fracture surgery
Chief Complaint
-: Leukocytosis, Pneumonia and Bacteremia
Subjective / Review of Systems
Patient seen and examined. Reports no significant issues overnight
Vital Signs / Physical Exam
Vital Signs
Vital Signs
Temp Pulse Resp BP Pulse Ox
97.8 F 80 20 143/67 93
01/27/24 04:04 01/27/24 08:43 01/27/24 07:59 01/27/24 08:43 01/27/24 07:59
Physical Exam
Constitutional: No Acute Distress, Comfortable, Chronically Ill and Non-toxic
Eyes: Sclera Anicteric
Cardiovascular: S1/S2; Negative S3/S4
Pulmonary: Other (On high flow O2)
Gastrointestinal: Non Distended
Neurological: Awake and Alert
Psychological: Calm
Lines: HD Cath (Temp HD cath right IJ)
Objective Data
Lab Data
Lab Results
01/27/24 04:18
01/27/24 04:18
Estimated Creat Clear 13 ml/min 01/27/24 04:18
Lactic Acid 1.3 mmol/L (0.7-2.0) 01/25/24 03:49
Total Bilirubin 0.8 mg/dl (0.2-1.3) 01/23/24 04:14
AST 28 U/L (14-36) 01/23/24 04:14
ALT 14 U/L (0-35) 01/23/24 04:14
Alkaline Phosphatase 114 U/L (38-126) 01/23/24 04:14
Most recent labs reviewed.
Micro Results:
01/24/24 04:26 Blood Culture - Preliminary
Blood/Venous No Growth in 72 hours- Final report to follow
01/27/24 04:18 Blood Culture - Pending
Blood/Venous
01/25/24 03:49 Blood Culture - Preliminary
Blood/Venous No Growth in 48 hours- Final report to follow
01/26/24 03:44 Blood Culture - Preliminary
Blood/Venous No Growth in 24 hours- Final report to follow
01/23/24 15:02 Catheter Tip Culture - Final
Dialysis Line No Growth After 72 Hours
01/23/24 04:14 Blood Culture - Preliminary
Blood/Venous Staph aureus MRSA
Gram Stain - Preliminary
01/23/24 04:14 Blood Culture - Preliminary
Blood/Venous Staph aureus MRSA
Gram Stain - Preliminary
01/21/24 16:46 Urine Culture - Final
Urine Escherichia coli - ESBL
01/21/24 12:51 Blood Culture - Final
Blood/Venous Staph aureus MRSA
Gram Stain - Final
01/21/24 12:51 Blood Culture - Final
Blood/Venous Staph aureus MRSA
Gram Stain - Final
01/21/24 16:15 Respiratory Culture - Final
Sputum Staph aureus MRSA
Gram Stain - Final
01/21/24 16:46 Nasal Screen MRSA (PCR) - Final
Nose Staph aureus MRSA
01/21/24 16:46 Legionella Urinary Antigen - Final
Urine Negative for Legionella pneumophila Serogroup 1 antigen.
A negative result does not rule out the possiblity of
Legionella infection due to other serogroups or species of
Legionella. Clinical correlation is recommended.
Streptococcus pneumoniae Antigen (M - Final
Negative for Streptococcus pneumoniae antigen.
A negative result does not exclude infection with
Streptococcus pneumoniae. Clinical correlation is
recommended.
01/21/24 12:51 Influenza Types A & B (DINORAH) - Final
Nasal Swab Negative for Influenza A & B, NAAT
Negative results must be combined with clinical observations
and patient history.
Nucleic Acid Amplification test (NAAT)performed on the
[employer] platform.
Imaging:
01/25/24 CXR: Radiographic findings are most suggestive of pulmonary edema pattern with bilateral pleural effusions. Underlying pneumonia is difficult to exclude radiographically.
01/23/24 Chest US: There is relatively minimal left pleural fluid identified sonographically. Therefore, opacity on radiographic examination is predominantly related to pulmonary parenchymal consolidation.
01/21/24 CXR: moderate left and mild right lower lung findings suggesting pneumonia..
--- NOTE | 2024-01-27 09:36 | W.PN.NEPH.PH ---
Today's Communication / Plan
-
Dialysis tomorrow
Remove dialysis catheter after dialysis tomorrow
Vancomycin continues for MRSA bacteremia
Assessment/Plan
-
Impression:
Hypoxic respiratory failure
MRSA bacteremia
Suspected MRSA pneumonia
Suspected pneumonia with possible underlying congestive heart failure
End-stage renal disease (new dx within a month with suspected ATN origin following out of hospital cardiac arrest)
Hypertension
Paroxysmal A-fib
Suspected bilateral renal artery stenosis
Hypothyroidism
Anemia
Plan:
follow up cultures negative, now negative up to 72hrs
remains on vanco
with MRSA bacteremia and PNA,s/p HD catheter removal on 01/22
Will provide dialysis through temp catheter tomorrow and then would remove temp catheter after dialysis
White cell count continues to rise but no fever
Status temp catheter placement 01/24
Next dialysis will be planned for Sunday, January 27
continue midodrine support for BPs on HD
apparently volume removal as outpatient has been complicated by hypotension
Echocardiogram reviewed preserved EF, mod MR
Anemia-acute drop s/p PRBC 01/23, no overt bleeding noted on AC, hemoglobin stable at 8.8
XIN will be provided for anemia of chronic kidney disease
Antibiotic therapy per ID,on mid flow O2
hyponatremia-dilutional
renal diet and FR 1200 cc/day
Discussed with ID
-
-
Date of Service: January 27, 2024
CC / HPI / ROS
-
Chief Complaint:
ESRD
History of Present Illness:
ESRD MWF at [facility]
Hemodynamically stable with out pressors but remains on oral midodrine
hgb 8.8 following transfusion
Leukocytosis persist on Vanco or ertepenem ESBL in urine
Remains on oral amio re: afib, now in NSR
Review of Systems:
Remains on high flow oxygen support with productive cough
No new fevers
no reported pain or sob at rest
severe TAKOTNA, communicates through writing
Labs
-
Labs:
WBC 26.7 10^3/uL (4.8-10.8) H 01/27/24 04:18
RBC 2.99 10^6/uL (4.20-5.40) L 01/27/24 04:18
Hgb 8.8 g/dL (12.0-16.0) L 01/27/24 04:18
Hct 26.7 % (37.0-47.0) L 01/27/24 04:18
Plt Count 207 10^3/uL (130-400) 01/27/24 04:18
Sodium 127 mmol/L (135-145) L 01/27/24 04:18
Potassium 4.6 mmol/L (3.5-5.1) 01/27/24 04:18
Chloride 91 mmol/L (98-107) L 01/27/24 04:18
Carbon Dioxide 28 mmol/L (22-30) 01/27/24 04:18
BUN 40 mg/dl (7-17) H 01/27/24 04:18
Creatinine 2.8 mg/dL (0.6-1.0) H 01/27/24 04:18
eGFR 16.25 01/27/24 04:18
Glucose 114 mg/dl (70-99) H 01/27/24 04:18
Calcium 8.9 mg/dl (8.4-10.2) 01/27/24 04:18
Albumin 2.6 g/dl (3.5-5.0) L 01/23/24 04:14
Physical Exam
-
Vital Signs:
Vital Signs
Temp Pulse Resp BP Pulse Ox
97.8 F 80 20 143/67 93
01/27/24 04:04 01/27/24 08:43 01/27/24 07:59 01/27/24 08:43 01/27/24 07:59
Cardiovascular:: Regular rate and rhythm
Respiratory:: Bilateral: Coarse and Bilateral: Rhonchi
Lung Excursion:: Normal
Abdomen:: Nontender and Soft
Bowel Sounds:: Normal
Extremity Edema:: None: Bilateral:
[place] Catheter: No
--- NOTE | 2024-01-27 10:49 | W.PN.HOSP.TC ---
Today's Communication/Plan
-
Continue high flow oxygen and titrate as able. Continue IV antibiotics. Plan for HD tomorrow.
Assessment / Plan
Assessment / Plan
Physical exam:
General: Acutely ill
HEENT: Normocephalic, Atraumatic and Moist Mucous Membranes
Respiratory: Coarse crackles in both bases more pronounced on the right; Negative Wheezes or Rhonchi
Cardiac: Regular rate and rhythm, and S1/S2, systolic murmur radiating to axilla
GI: Soft, Nontender and Nondistended
Musculoskeletal: No Clubbing, No Cyanosis and B/L Edema
Neuro: Awake, Alert and Oriented, generalized weakness but no gross neuro-deficits.
Psych: Flat affect
Echocardiogram:
LV ejection fraction is 55-60%. No regional wall motion abnormalities are seen.
Normal right ventricular size and function.
Severely dilated left atrium. Moderately dilated right atrium.
Moderate, eccentric mitral regurgitation.
No prior study available for comparison.
A/P:
Acute hypoxic respiratory failure:
Multifactorial in etiology likely pneumonia and volume overload, also a fib.
Remains on high flow oxygen 50 L at 60% down from 100% prior but still significant oxygen requirements. Pulse ox in the 90% range with this.
HD cont per renal
Continue broad-spectrum IV antibiotics
Updated niece and (transplant sole splitter at [facility]) at bedside yesterday.
Sepsis due to Staph aureus bacteremia/pneumonia/?UTI:
Blood cultures positive for staph--> repeat blood cultures from 01/23 no growth so far
Obtained culture from tip of the catheter as well and no growth so far
Sputum culture positive for staph
Continue IV vancomycin
She is also now on IV Ertapenem
Urine cultures with gram-negative megan
WBC 24.8---> 22.7-->26.7
Lactate remains at 3.3-->1.3
Legionella, strep, influenza, COVID-19 all tests negative.
Transthoracic echocardiogram reviewed
Removed HD catheter after hemodialysis yesterday and IR placed temporary.
ID consult appreciated
Depression versus adjustment disorder:
Psychiatry consult appreciated
She was initiated on escitalopram 5 mg p.o. daily
Continue low-dose Remeron at bedtime
Paroxysmal Atrial fibrillation rapid ventricular response/atypical atrial flutter as well:
Remains normal sinus rhythm
Tolerating anticoagulation well, Eliquis 2.5 mg twice a day
Discussed with cardiology yesterday
Continue IV Lopressor as needed
Cardiology consult appreciated
Amiodarone IV switch to oral, 400 mg twice a day
On carvedilol 6.25 mg twice a day
Anemia:
Appears a combination of anemia of chronic disease mainly and iron deficiency. Likely due to anemia of chronic disease worsening and no evidence of acute blood loss anemia at the moment.
S/P Blood transfusion, Hb 6.7-->9-->8.8
Monitor hemoglobin closely
Acute on chronic diastolic CHF:
Manage volume via dialysis
Transthoracic echo updated
Dysphagia:
Speech therapy evaluation and recommended start diet level 6
Mental status changes:
Suspect delirium related but if any focality on exam or persistent, then would consider brain images rule out stroke or infectious embolic events. Improvement noticed.
Hyponatremia:
Sodium 127 today
Nephro following
Elevated troponin:
Elevated troponin likely due to non-ischemic myocardial injury in the setting of sepsis and end-stage renal disease
Echocardiogram reviewed and no WMA, normal EF.
Hyperglycemia:
Likely due to stress
Hemoglobin A1c 5.3
Cont low-dose insulin sliding scale
End-stage renal disease on hemodialysis:
Nephrology consult and follow-up appreciated
Dialysis per nephrology
Plan for HD on Sunday
Hypotension:
On midodrine
Hypothyroidism:
Continue thyroid replacement
COPD:
No need for systemic steroids
No bronchospasm
Continue Pulmicort inhaler twice a day.
Continue DuoNebs 4 times daily
History of cardiac arrest/PEA back in November:
Invasive strategy has not been pursued due to multiple medical issues
History of probable renal artery stenosis:
Needs further investigation later down the road.
DVT prophylaxis:
Eliquis
CODE STATUS:
Full code
Total time spent on today's encounter was 52 minutes which included time spent in counseling the patient/family regarding diagnosis and treatment plan as listed above, goals of care, and symptom management. Case was discussed with nursing staff,
specialists, and care coordinators/case management. All labs and imaging personally reviewed by me. Remainder the time spent in detailed review of previous records, lab data, imaging, and other medical provider documentation.
Anticipated Discharge: > 48 hours
Subjective/Interval History
-
Date of Service: January 27, 2024
Patient still on oxygen but much less than before. No chest pain. Afebrile
Objective Data
-
Labs:
Laboratory Results
01/27/24
04:18
WBC 26.7 H
Hgb 8.8 L
Hct 26.7 L
Plt Count 207
Sodium 127 L
Potassium 4.6
Chloride 91 L
Carbon Dioxide 28
BUN 40 H
Creatinine 2.8 H
Glucose 114 H
Calcium 8.9
Vital Signs:
Vital Signs
Temp Pulse Resp BP Pulse Ox
97.8 F 76 20 142/68 94
01/27/24 04:04 01/27/24 10:00 01/27/24 10:00 01/27/24 10:00 01/27/24 10:00
I&O
01/26/24 01/27/24 01/28/24
06:59 06:59 06:59
Intake Total 403.5 / 403.5 1135 / 1135
Output Total 0 / 0
Balance 403.5 / 403.5 1134 / 1134
--- NOTE | 2024-01-27 11:56 | PHA.VAN.FU ---
Vancomycin Assessment / Plan
- Assessment
Hemodialysis Schedule: MWF
WBC's are: Trending Up (22.7>26.7)
In the past 24 hrs, patient has been: Afebrile
Concomitant Antimicrobials: Ertapenem
- Dosing Plan
Dosing by Level: Hold off on dosing today (Dose on HD days, Next HD is 01/28/24)
- Monitoring Plan
Random Level: Ordered for 01/28/24 at 06:00
- Follow Up
Pharmacy will continue to follow.
Vancomycin Follow UP
- -
Patient Age: 83
Patient Sex: Female
Vancomycin Day #: 7
Indication: Pulmonary/Respiratory
Requesting Provider: Dr Antoine / Dr Guevara
Pertinent Antimicrobial Allergies:
NKDA
Height / Weight:
Height 5 ft 3 in
Actual Weight 57.9 kg
Pertinent Past Medical History: ESRD on HD MWF
- Vital Signs / Lab Results
Temp Pulse Resp BP Pulse Ox
97.8 F 75 17 142/68 95
01/27/24 04:04 01/27/24 11:52 01/27/24 11:52 01/27/24 10:00 01/27/24 11:52
Lab Results - Hematology
01/25/24 01/26/24 01/27/24
03:49 03:44 04:18
WBC 21.8 H 22.7 H 26.7 H
Band Neutrophils 14 H D 9 H D
Lab Results - Chemistry
01/24/24 01/25/24 01/26/24
11:14 03:49 03:44
BUN 37 H 50 H 21 H
Creatinine 2.5 H 2.8 H 1.8 H
Estimated Creat Clear 14 13 20
01/27/24
04:18
BUN 40 H
Creatinine 2.8 H
Estimated Creat Clear 13
01/25/24
03:49
Lactic Acid 1.3
Microbiology Results
01/24/24 04:26 Blood Culture - Preliminary
Blood/Venous No Growth in 72 hours- Final report to follow
01/25/24 03:49 Blood Culture - Preliminary
Blood/Venous No Growth in 48 hours- Final report to follow
01/26/24 03:44 Blood Culture - Preliminary
Blood/Venous No Growth in 24 hours- Final report to follow
01/23/24 15:02 Catheter Tip Culture - Final
Dialysis Line No Growth After 72 Hours
01/23/24 04:14 Blood Culture - Preliminary
Blood/Venous Staph aureus MRSA
Gram Stain - Preliminary
01/23/24 04:14 Blood Culture - Preliminary
Blood/Venous Staph aureus MRSA
Gram Stain - Preliminary
01/21/24 16:46 Urine Culture - Final
Urine Escherichia coli - ESBL
Therapeutic Drug Monitoring
Random Vancomycin 10.0 ug/ml 01/25/24 03:49
--- NOTE | 2024-01-27 13:25 | W.PN.PUL3 ---
Today's Communication / Plan
-
Continue with antibiotics
Continue with aggressive airway clearance, sport bed/3% saline
Blood cultures being followed
HD catheter removal at discretion of nephrology given bacteremia
Wean oxygen
Assessment
-
83-year-old female with history of atrial fibrillation on anticoagulation, history of [id number] cardiac arrest in the past complicated by end-stage renal disease, on hemodialysis who presents with suspected bilateral patchy pneumonia,
leukocytosis, worsening hypoxia. Patient admitted to ICU for further management 01/21/2024
Acute hypoxic respiratory insufficiency
Requiring nonrebreather, transition to high flow
Bilateral infiltrates, suspected pneumonia
Leukocytosis, bandemia
Anemia
ESRD on HD (M/W/F)
Hyponatremia hyperglycemia
Mildly elevated troponin
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
Normal biventricular function
Intermittent tachycardia, atrial fibrillation
Conditions present prior to admission
Hypertension/hyperlipidemia hypothyroidism
History of OOHCA/PEA November 2023
VDRF
c/b ATN/ESRD
Aspirated tooth secondary to traumatic intubation November 2023
Required bronchoscopy with retrieval on right side
Atrial fibrillation on anticoagulation
Hx of Hypothyroidism
History of COPD
[id number] history of smoking quit 1989
Plan/recommendations
At this time, patient i appears to be overall improved, however still requiring high flow oxygen
Appears more comfortable, less use of accessory muscles, more conversant
Bandemia improving
Rt IJ HD catheter placed 01/24, trialysis catheter
Significant smoking history noted
Chest x-ray today with persistent bilateral patchy infiltrate per my review. Improved left pleural effusion
ABG 7.48/32/214. No evidence of CO2 retention
Moving forward
Continue with empiric antibiotics, transition from cefepime/vancomycin to ertapenem/vancomycin
Cultures positive for Staphylococcus in the sputum, MRSA swab and MRSA bacteremia
Echocardiogram without evidence of vegetation
ID following
HD catheter removed 01/23/2024
Legionella and streptococcal pneumonia antigen negative
HD/trialysis catheter placed 01/24
Continue nebulized therapy, chest percussion, sport bed, chest percussion, Acapella/incentive spirometry
Minimize any sedation
Patient cough seems to be getting stronger
Head of bed elevated, aspiration precautions
Speech and swallow evaluation, will reevaluate as she appears to be stronger today
Unfortunately nutrition continues to be an issue
Doubt heart failure. Echocardiogram with normal biventricular function, eccentric MR noted
Apparently had echocardiogram while in [facility] with mild to moderate MR at that time
Elevated troponins noted, trend
Atrial fibrillation with rapid rates at times, patient appears to be without symptoms, now converted to sinus rhythm
Lopressor as needed amiodarone continues Eliquis
Resumed 2.5 mg twice a day
Cardiology is recommending amiodarone for 2 to 3-month course
Hemodialysis continues Sunday/Sunday/Sunday
Midodrine continues per nephrology
Hyponatremia noted
Plan for removal of HD catheter per nephrology correspondence, after HD 01/27
Patient did have an aspirated tooth with difficult intubation/traumatic intubation while in [facility] requiring a bronchoscopy with tooth retrieval on right side of the lung
Poor dentition is noted
Follow blood sugars
Low-dose insulin sliding scale. Hyperglycemia noted
PT/OT. Patient has refused in the past. This will be critical to continue
DVT prophylaxis: Eliquis 2.5 mg twice a day. History of atrial fibrillation noted
GI prophylaxis: Not indicated at this time
Disposition efforts
Subjective Data
-
Date of Service:
Date of Service: January 27, 2024
Subjective:
Patient appears to be slowly improving. However still with significant rhonchi with cough. Profoundly fatigued. Denies chest pain, nausea, abdominal pain
Objective Data
Data Reviewed
Vital Signs / I&O / Oxygen:
Vital Signs
Temp Pulse Resp BP Pulse Ox
97.8 F 73 21 138/73 95
05/12/24 04:04 01/27/24 12:00 01/27/24 12:00 01/27/24 12:00 01/27/24 12:00
Intake and Output
01/26/24 01/27/24 01/28/24
06:59 06:59 06:59
Intake Total 403.5 / 403.5 1135 / 1135
Output Total 0 / 0
Balance 403.5 / 403.5 1135 / 1135
SaO2 95
Nasal Cannula flow liters per 50
minute
Physical Exam
General: Comfortable (Cachectic)
HEENT: Normocephalic, Anicteric, Other (Right IJ trialysis catheter) and Other (Left eye cannot be closed, left facial droop)
Cardiovascular: S1-S2, Irregular Rhythm, Murmur (2/6 systolic murmur) and Rub (n)
Respiratory: Wheeze (n), Crackles (n), Rhonchi (n) and Non-Labored Respirations
GI: Soft, Non Distended and Non Tender
Neurology: Awake and Alert (Hard of hearing)
Skin: Good Color, Cyanosis (n), Jaundice (n) and Rash (n)
Labs/Micro/Reports
Lab Data
01/27/24 04:18
01/27/24 04:18
Microbiology
01/24/24 04:26 Blood/Venous Blood Culture - Preliminary
No Growth in 72 hours- Final report to follow
01/25/24 03:49 Blood/Venous Blood Culture - Preliminary
No Growth in 48 hours- Final report to follow
01/26/24 03:44 Blood/Venous Blood Culture - Preliminary
No Growth in 24 hours- Final report to follow
01/23/24 15:02 Dialysis Line Catheter Tip Culture - Final
No Growth After 72 Hours
01/23/24 04:14 Blood/Venous Blood Culture - Preliminary
Staph aureus MRSA
01/23/24 04:14 Blood/Venous Gram Stain - Preliminary
01/23/24 04:14 Blood/Venous Blood Culture - Preliminary
Staph aureus MRSA
01/23/24 04:14 Blood/Venous Gram Stain - Preliminary
01/21/24 16:46 Urine Urine Culture - Final
Escherichia coli - ESBL
01/21/24 12:51 Blood/Venous Blood Culture - Final
Staph aureus MRSA
01/21/24 12:51 Blood/Venous Gram Stain - Final
01/21/24 12:51 Blood/Venous Blood Culture - Final
Staph aureus MRSA
01/21/24 12:51 Blood/Venous Gram Stain - Final
[2024-01-27] MEDS: INVANZ 55 MG IV (13:34)
--- NOTE | 2024-01-27 20:16 | PTCARENOTE ---
Received pt from dayshift RN. Pt is AAOx2 (time), forgetful, anxious. NSR w/ 1 st degree on the monitor. On highflow 50L 60% O2 sat 95%, lungs coarse/rhonchi. Pt is anuric, incont of stool. Mouth care provided. Q2T provided. Pt is laying comfortable
in bed with call alex in reach.
[2024-01-27] MEDS: REMERON 7.5 MG PO (21:51)
[2024-01-28] VITALS (28 sets, daily range): BP systolic 91–156; BP diastolic 56–111; BMI 22.9
[2024-01-28] MEDS: VENTOLIN NEBULES 2.5 MG INH (03:33)
[2024-01-28] MEDS: SYNTHROID 100 MCG PO (03:59)
[2024-01-28] MEDS: MYCOSTATIN ORAL SUSPENSION 5 ML PO ×3 (03:59→17:06)
[2024-01-28 04:37] LABS: Hemoglobin 8.7 g/dL (12.0-16.0); Mean Corp Hgb Conc. 32.2 g/dL (33.0-37.0); Mean Corpuscular Hgb 29.3 pg (27.0-31.0); Mean Corpuscular Volume 90.9 fL (81.0-99.0); Mean Platelet Volume 10.8 fL (7.4-10.4); Nucleated Red Blood Cells % 0.1 %; Platelet Count 198 10^3/uL (130-400); Red Blood Cell Count 2.97 10^6/uL (4.20-5.40); White Blood Cell Count 32.5 10^3/uL (4.8-10.8)
[2024-01-28 05:01] LABS: Blood Urea Nitrogen 52 mg/dl (7-17); Calcium 9.3 mg/dl (8.4-10.2); Carbon Dioxide 25 mmol/L (22-30); Chloride 90 mmol/L (98-107); Estimated Creatinine Clearance 10 ml/min; Glucose 103 mg/dl (70-99); Potassium 5.3 mmol/L (3.5-5.1); Sodium 125 mmol/L (135-145); eGFR 12.02
[2024-01-28 05:06] LABS: Vancomycin Random 16.1 ug/ml
[2024-01-28 05:27] LABS: Absolute Neutrophils -Man Diff 26.9 10^3/uL (1.4-6.5); Band Neutrophils 12 % (0-3); Eosinophils 2 % (0-6); Lymphocytes 5 % (20-51); Metamyelocytes 5 % (-); Monocytes 5 % (2-9); Segmented Neutrophils 71 % (42-75)
[2024-01-28 05:28] LABS: Normal RBC Morphology Yes; Platelets Checked Yes; Total Cells Counted 100
[2024-01-28] MEDS: DUONEB 3 ML INH ×4 (07:23→19:18)
[2024-01-28] MEDS: SODIUM CHLORIDE 3% FOR INHALATION 1 VIAL INH ×2 (07:24→19:19)
[2024-01-28] MEDS: PULMICORT 0.5 MG INH ×2 (07:24→19:18)
--- NOTE | 2024-01-28 08:02 | W.PN.HOSP.TC ---
Addendum entered and electronically signed by Carline Prado MD 01/28/24 15:48:
# Typical Atrial Flutter
Addendum entered and electronically signed by Carline Prado MD 01/28/24 10:27:
updated nephjayna (cardiothoracic surgeon at [facility]) on the phone [phone]
Original Note:
Today's Communication/Plan
-
see A/P
Assessment / Plan
Assessment / Plan
Physical exam:
General: Acutely ill
HEENT: Normocephalic, Atraumatic and Moist Mucous Membranes
Respiratory: Coarse crackles in both bases more pronounced on the right; Negative Wheezes or Rhonchi
Cardiac: Regular rate and rhythm, and S1/S2, systolic murmur radiating to axilla
GI: Soft, Nontender and Nondistended
Musculoskeletal: No Clubbing, No Cyanosis and B/L Edema
Neuro: Awake, Alert and Oriented, generalized weakness but no gross neuro-deficits.
Psych: Flat affect
Echocardiogram:
LV ejection fraction is 55-60%. No regional wall motion abnormalities are seen. Normal right ventricular size and function. Severely dilated left atrium. Moderately dilated right atrium. Moderate, eccentric mitral regurgitation. No prior study
available for comparison.
A/P:
# Acute hypoxic respiratory failure
multifactorial in etiology due to pneumonia (see below) and volume overload, also a fib.
Cont high flow oxygen, today increased to 85% and 55 L (was at 60% and 50 L yesterday, was at 100% prior).
HD cont per renal
# Sepsis POA due to MRSA bacteremia/ MRSA pneumonia/ and ESBL UTI:
# Resolved lactic acidosis
Blood cultures positive for MRSA, repeat blood cultures from 01/23 no growth
HD catheter DC'ed 01/22, tip culture also no growth. IR placed temporary.
Sputum culture positive for staph
Continue IV vancomycin
Urine culture with ESBL E coli, s/p IV Ertapenem x3 days
Cont to monitor WBC, remain elevated at 32.5 today
Legionella, strep, influenza, COVID-19 all tested negative.
Transthoracic echocardiogram reviewed, no gross vegetation
ID consult appreciated
# Depression versus adjustment disorder:
Psychiatry consult appreciated
She was initiated on escitalopram 5 mg p.o. daily
Continue low-dose Remeron at bedtime
# Paroxysmal Atrial fibrillation, resolved rapid ventricular response/atypical atrial flutter
Remains normal sinus rhythm
Cont carvedilol 6.25 mg twice a day
Back in sinus after IV amiodarone: transitioned to PO load 400mg bid for 2 weeks (through 02/07), then 200mg daily. Plan for short term course, 2-3 months, as she recovers from critical illness
Cont Eliquis 2.5 mg twice a day
Cardiology consult appreciated
# Anemia:
Appears a combination of anemia of chronic disease mainly and iron deficiency. Likely due to anemia of chronic disease worsening and no evidence of acute blood loss anemia at the moment.
s/p Blood transfusion x1, Hb improved from 6.7 to 8.7 today
Monitor hemoglobin closely
# Acute on chronic diastolic CHF:
Manage volume via dialysis
Transthoracic echo updated
# Dysphagia:
Speech therapist following, cont current Puree diet and Thin liquids
# Mental status changes, suspect delirium related
MS improved
# Hyponatremia:
Sodium 125 today
Nephro following
# Elevated troponin likely due to non-ischemic myocardial injury in the setting of sepsis and end-stage renal disease
Echocardiogram reviewed and no WMA, normal EF.
# Hyperglycemia:
Likely due to stress
Hemoglobin A1c 5.3
Cont low-dose insulin sliding scale
# End-stage renal disease on hemodialysis:
Nephrology consult and follow-up appreciated
Dialysis per nephrology
Plan for HD on Sunday
# Hypotension:
On midodrine
# Hypothyroidism:
Continue thyroid replacement
# COPD:
No need for systemic steroids
No bronchospasm
Continue Pulmicort inhaler twice a day.
Continue DuoNebs 4 times daily
# History of cardiac arrest/PEA back in November:
Invasive strategy has not been pursued due to multiple medical issues
# History of probable renal artery stenosis:
Needs further investigation later down the road.
DVT prophylaxis: Eliquis
CODE STATUS: Full code
DW RN
DW niece on the phone. She is the contact lens flashing puncher.
total time spent 51 min
Anticipated Discharge: > 48 hours
Subjective/Interval History
-
Date of Service: January 28, 2024
Objective Data
-
Labs:
Laboratory Results
01/28/24
03:56
WBC 32.5 H
Hgb 8.7 L
Hct 27.0 L
Plt Count 198
Sodium 125 L
Potassium 5.3 H
Chloride 90 L
Carbon Dioxide 25
BUN 52 H
Creatinine 3.6 H
Glucose 103 H
Calcium 9.3
Vital Signs:
Vital Signs
Temp Pulse Resp BP Pulse Ox
36.7 C 87 19 147/70 93
01/28/24 07:18 01/28/24 07:27 01/28/24 07:27 01/28/24 06:00 01/28/24 07:27
I&O
01/27/24 01/28/24 01/29/24
06:59 06:59 06:59
Intake Total 1135 / 1135 150 / 150
Output Total 0 / 0 0 / 0
Balance 1135 / 1135 150 / 150
[2024-01-28] MEDS: MANNITOL 12.5 GRAMS IV ×2 (08:15→09:03)
[2024-01-28] MEDS: ProAmatine 5 MG PO (08:22)
[2024-01-28] MEDS: RETACRIT 10000 UNITS IV (08:36)
--- NOTE | 2024-01-28 08:38 | PTCARENOTE ---
Pt bp 90 /50 on HD given midodrine as ordered. O2 sats droppin to 84% now on 50/85 ICU charge nurse notified
--- NOTE | 2024-01-28 08:56 | PTCARENOTE ---
Roula Magaña wanted an update from dr Prado, phone no tt to DR Johan Magaña assured DR Prado would call him
[2024-01-28] MEDS: FLEXBUMIN 25% FOR HEMODIALYSIS 12.5 GRAMS IV (09:26)
--- NOTE | 2024-01-28 09:33 | PHA.VAN.FU ---
Vancomycin Assessment / Plan
- Assessment
Hemodialysis Schedule: MWF
Last Hemodialysis performed: 01/24
WBC's are: Trending Up
In the past 24 hrs, patient has been: Afebrile
- Assessment - Therapeutic Drug Monitoring
Random Level: pre-HD = 16.1 (received total of 1500mg 01/24)
- Dosing Plan
Dosing by Level: Re-dose today (Vanc 750mg)
- Monitoring Plan
No level(s) ordered at this time: consider pre-HD level for Wed to trend for scheduling regimen
- Follow Up
Pharmacy will continue to follow.
Vancomycin Follow UP
- -
Patient Age: 83
Patient Sex: Female
Vancomycin Day #: 8
Indication: Pulmonary/Respiratory
Requesting Provider: Dr Antoine / Dr Guevara
Pertinent Antimicrobial Allergies:
NKDA
Height / Weight:
Height 5 ft 3 in
Actual Weight 58.7 kg
Pertinent Past Medical History: ESRD on HD MWF
- Vital Signs / Lab Results
Temp Pulse Resp BP Pulse Ox
98.1 F 83 19 94/56 94
01/28/24 07:18 01/28/24 08:22 01/28/24 07:27 01/28/24 08:22 01/28/24 09:04
Lab Results - Hematology
01/26/24 01/27/24 01/28/24
03:44 04:18 03:56
WBC 22.7 H 26.7 H 32.5 H
Band Neutrophils 14 H D 9 H D 12 H
Lab Results - Chemistry
01/26/24 01/27/24 01/28/24
03:44 04:18 03:56
BUN 21 H 40 H 52 H
Creatinine 1.8 H 2.8 H 3.6 H
Estimated Creat Clear 20 13 10
Microbiology Results
01/24/24 04:26 Blood Culture - Preliminary
Blood/Venous No Growth in 4 days- Final report to follow
01/27/24 04:18 Blood Culture - Preliminary
Blood/Venous No Growth in 24 hours- Final report to follow
01/25/24 03:49 Blood Culture - Preliminary
Blood/Venous No Growth in 72 hours- Final report to follow
01/26/24 03:44 Blood Culture - Preliminary
Blood/Venous No Growth in 48 hours- Final report to follow
01/23/24 15:02 Catheter Tip Culture - Final
Dialysis Line No Growth After 72 Hours
01/23/24 04:14 Blood Culture - Preliminary
Blood/Venous Staph aureus MRSA
Gram Stain - Preliminary
01/23/24 04:14 Blood Culture - Preliminary
Blood/Venous Staph aureus MRSA
Gram Stain - Preliminary
Therapeutic Drug Monitoring
Random Vancomycin 16.1 ug/ml 01/28/24 03:56
--- NOTE | 2024-01-28 09:58 | W.PN.PUL3 ---
Today's Communication / Plan
-
HD today, removal of catheter planned for today, renal following
Abx are continued, ID following
Remains on HFNC, large requirements, encouraged further PT/OT/IS
Check proBNP
Repeat CXR today
Assessment
-
83-year-old female with history of atrial fibrillation on anticoagulation, history of [id number] cardiac arrest in the past complicated by end-stage renal disease, on hemodialysis who presents with suspected bilateral patchy pneumonia,
leukocytosis, worsening hypoxia. Patient admitted to ICU for further management 01/21/2024
Acute hypoxic respiratory insufficiency initially requiring nonrebreather, transitioned to high flow
Bilateral infiltrates, suspected pneumonia
Leukocytosis, bandemia
Anemia
ESRD on HD (M/W/F)
Hyponatremia hyperglycemia
Mildly elevated troponin
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
Normal biventricular function
Intermittent tachycardia, atrial fibrillation
Conditions present prior to admission
Hypertension/hyperlipidemia hypothyroidism
History of OOHCA/PEA November 2023
VDRF
c/b ATN/ESRD
Aspirated tooth secondary to traumatic intubation November 2023
Required bronchoscopy with retrieval on right side
Atrial fibrillation on anticoagulation
Hx of Hypothyroidism
History of COPD
[id number] history of smoking quit 1989
Plan/recommendations
At this time, patient still requiring high flow oxygen: 50 LPM/85%
Appears more comfortable, less use of accessory muscles, more conversant
Overall deconditioned/lethargic
On HD per renal
Rt IJ HD catheter placed 01/24, Trialysis catheter
Prior HD catheter removed 01/23/2024
Hemodialysis continues Sunday/Sunday/Sunday
Midodrine continues per nephrology
Hyponatremia noted
Plan for removal of HD catheter per nephrology correspondence, after HD 01/27
Significant smoking history noted
Chest x-ray today with persistent bilateral patchy infiltrate per my review.
Improved left pleural effusion
ABG 7.48/32/214. No evidence of CO2 retention
Continue with empiric antibiotics, transition from cefepime/vancomycin to ertapenem/vancomycin
Cultures positive for Staphylococcus in the sputum, MRSA swab and MRSA bacteremia
Echocardiogram without evidence of vegetation
ID following
Doubt heart failure. Echocardiogram with normal biventricular function, eccentric MR noted
Apparently had echocardiogram while in [facility] with mild to moderate MR at that time
Elevated troponins noted, trend
Atrial fibrillation with rapid rates at times, patient appears to be without symptoms, now converted to sinus rhythm
Lopressor as needed amiodarone continues Eliquis
Resumed 2.5 mg twice a day
Cardiology is recommending amiodarone for 2 to 3-month course
Continue nebulized therapy, chest percussion, sport bed, chest percussion, Acapella/incentive spirometry
Minimize any sedation
Patient cough seems to be getting stronger
Head of bed elevated, aspiration precautions
Speech and swallow evaluation, will reevaluate as she appears to be stronger today
Unfortunately nutrition continues to be an issue
Patient did have an aspirated tooth with difficult intubation/traumatic intubation while in [facility] requiring a bronchoscopy with tooth retrieval on right side of the lung
Poor dentition is noted
Follow blood sugars
Low-dose insulin sliding scale.
Hyperglycemia noted
PT/OT. Patient has refused in the past. This will be critical to continue
DVT prophylaxis: Eliquis 2.5 mg twice a day. History of atrial fibrillation noted
GI prophylaxis: Not indicated at this time
Disposition efforts
Diagnostic Data
CXR 01/25/24: Bilateral reticulonodular and air space opacities within both lungs, relatively sparing the apices, pattern highly suggestive of pulmonary edema. Evidence for bilateral pleural effusions, slightly greater on the left compared to the
right, and probably small to moderate bilaterally.
01/21/24- moderate left and mild right lower lung findings suggesting pneumonia..
Chest US 01/23/24- There is relatively minimal left pleural fluid identified sonographically. Therefore, opacity on radiographic examination is predominantly related to pulmonary parenchymal consolidation.
ECHO 01/21/24- LV ejection fraction is 55-60%. No regional wall motion abnormalities are seen. Normal right ventricular size and function. Severely dilated left atrium. Moderately dilated right atrium. Moderate, eccentric mitral regurgitation. No
prior study available for comparison.
Subjective Data
-
Date of Service:
Date of Service: January 28, 2024
Chief Complaint: Pulmonary Follow Up
Subjective:
on HD during my exam, no new complaints
remains on HFNC as well
appears very deconditioned, she is TUSCARORA
Objective Data
Data Reviewed
Vital Signs / I&O / Oxygen:
Vital Signs
Temp Pulse Resp BP Pulse Ox
98.1 F 83 19 94/56 94
01/28/24 07:18 01/28/24 08:22 01/28/24 07:27 01/28/24 08:22 01/28/24 09:04
Intake and Output
01/27/24 01/28/24 01/29/24
06:59 06:59 06:59
Intake Total 1135 / 1135 150 / 150
Output Total 0 / 0 0 / 0
Balance 1135 / 1135 150 / 150
SaO2 94
Nasal Cannula flow liters per 50
minute
Physical Exam
General: Comfortable (Cachectic) and Other (overall chronically ill appearing)
HEENT: Normocephalic, Anicteric, Other (Right IJ trialysis catheter) and Other (Left eye cannot be closed, left facial droop)
Cardiovascular: S1-S2, Irregular Rhythm, Murmur (2/6 systolic murmur) and Rub (n)
Respiratory: Wheeze (n), Crackles (n), Rhonchi (n), Non-Labored Respirations and Other (decreased overall)
GI: Soft, Non Distended and Non Tender
Neurology: Awake, Alert (Hard of hearing), Oriented and Lethargic
Skin: Good Color, Cyanosis (n), Jaundice (n) and Rash (n)
Labs/Micro/Reports
Lab Data
01/28/24 03:56
01/28/24 03:56
Microbiology
01/24/24 04:26 Blood/Venous Blood Culture - Preliminary
No Growth in 4 days- Final report to follow
01/27/24 04:18 Blood/Venous Blood Culture - Preliminary
No Growth in 24 hours- Final report to follow
01/25/24 03:49 Blood/Venous Blood Culture - Preliminary
No Growth in 72 hours- Final report to follow
01/26/24 03:44 Blood/Venous Blood Culture - Preliminary
No Growth in 48 hours- Final report to follow
01/23/24 15:02 Dialysis Line Catheter Tip Culture - Final
No Growth After 72 Hours
01/23/24 04:14 Blood/Venous Blood Culture - Preliminary
Staph aureus MRSA
01/23/24 04:14 Blood/Venous Gram Stain - Preliminary
01/23/24 04:14 Blood/Venous Blood Culture - Preliminary
Staph aureus MRSA
01/23/24 04:14 Blood/Venous Gram Stain - Preliminary
01/21/24 16:46 Urine Urine Culture - Final
Escherichia coli - ESBL
[2024-01-28] MEDS: VANCOCIN 150 IV (10:05)
--- NOTE | 2024-01-28 10:51 | W.PN.ID1 ---
Date of Service
Date of Service: January 28, 2024
Today's Communication
Ordered CT a/p with IV and po contrast to evaluate source of leukocytosis
Assessment / Plan
# MRSA PNA with acute hypoxic resp failure on High flow O2
# MRSA bacteremia (4 sets bcx's )
# Leukocytosis continues to trend up (with bandemia), unclear source
# ESRD on HD
# recent hx cardiac arrest
- Repeat blood cultures negative since 01/23
- TTE no gross vegetation
- 01/22 HD catheter dc'd, tip cx neg
- Ordered CT a/p with IV and po contrast to evaluate source of leukocytosis
- Continue Vancomycin.
- Trend wbc, oxygen requirement
- temporary dialysis cath in place
# ESBL-E. coli bacteruria vs UTI
- s/p ertapenem 500mg IV q24 x 3d.
# Additional Past Medical History:
ESRD on HD via catheter
HTN
Paroxysmal atrial fibrillation
Diastolic CHF
Renal artery stenosis
history of cardiorespiratory arrest (07/2023)
Hypothyroidism
Congenital left facial droop
Left Ankle fracture surgery
Chief Complaint
-: Leukocytosis, Pneumonia and Bacteremia
Subjective / Review of Systems
Feeling better. Cough better.
No diarrhea.
Vital Signs / Physical Exam
Vital Signs
Vital Signs
Temp Pulse Resp BP Pulse Ox
98.1 F 83 19 94/56 94
01/28/24 07:18 01/28/24 08:22 01/28/24 07:27 01/28/24 08:22 01/28/24 09:04
Physical Exam
Constitutional: No Acute Distress
Pulmonary: Clear (anteriorly)
Gastrointestinal: Soft, Non Tender and Non Distended
Genito-Urinary: Negative CVA Tenderness
Extremities: Negative Edema
Musculoskeletal: Negative Joint Swelling (knees) or Joint Effusion (knees)
Neurological: Awake and Alert
Objective Data
Lab Data
Lab Results
01/28/24 03:56
01/28/24 03:56
Estimated Creat Clear 10 ml/min 01/28/24 03:56
Lactic Acid 1.3 mmol/L (0.7-2.0) 01/25/24 03:49
Total Bilirubin 0.8 mg/dl (0.2-1.3) 01/23/24 04:14
AST 28 U/L (14-36) 01/23/24 04:14
ALT 14 U/L (0-35) 01/23/24 04:14
Alkaline Phosphatase 114 U/L (38-126) 01/23/24 04:14
Most recent labs reviewed.
Micro Results:
01/24/24 04:26 Blood Culture - Preliminary
Blood/Venous No Growth in 4 days- Final report to follow
01/28/24 03:56 Blood Culture - Pending
Blood/Venous
01/27/24 04:18 Blood Culture - Preliminary
Blood/Venous No Growth in 24 hours- Final report to follow
01/25/24 03:49 Blood Culture - Preliminary
Blood/Venous No Growth in 72 hours- Final report to follow
01/26/24 03:44 Blood Culture - Preliminary
Blood/Venous No Growth in 48 hours- Final report to follow
01/23/24 15:02 Catheter Tip Culture - Final
Dialysis Line No Growth After 72 Hours
01/23/24 04:14 Blood Culture - Preliminary
Blood/Venous Staph aureus MRSA
Gram Stain - Preliminary
01/23/24 04:14 Blood Culture - Preliminary
Blood/Venous Staph aureus MRSA
Gram Stain - Preliminary
01/21/24 16:46 Urine Culture - Final
Urine Escherichia coli - ESBL
01/21/24 12:51 Blood Culture - Final
Blood/Venous Staph aureus MRSA
Gram Stain - Final
01/21/24 12:51 Blood Culture - Final
Blood/Venous Staph aureus MRSA
Gram Stain - Final
01/21/24 16:15 Respiratory Culture - Final
Sputum Staph aureus MRSA
Gram Stain - Final
01/21/24 16:46 Nasal Screen MRSA (PCR) - Final
Nose Staph aureus MRSA
01/21/24 16:46 Legionella Urinary Antigen - Final
Urine Negative for Legionella pneumophila Serogroup 1 antigen.
A negative result does not rule out the possiblity of
Legionella infection due to other serogroups or species of
Legionella. Clinical correlation is recommended.
Streptococcus pneumoniae Antigen (M - Final
Negative for Streptococcus pneumoniae antigen.
A negative result does not exclude infection with
Streptococcus pneumoniae. Clinical correlation is
recommended.
01/21/24 12:51 Influenza Types A & B (DINORAH) - Final
Nasal Swab Negative for Influenza A & B, NAAT
Negative results must be combined with clinical observations
and patient history.
Nucleic Acid Amplification test (NAAT)performed on the
[employer] platform.
Imaging:
01/25/24 CXR: Radiographic findings are most suggestive of pulmonary edema pattern with bilateral pleural effusions. Underlying pneumonia is difficult to exclude radiographically.
01/23/24 Chest US: There is relatively minimal left pleural fluid identified sonographically. Therefore, opacity on radiographic examination is predominantly related to pulmonary parenchymal consolidation.
01/21/24 CXR: moderate left and mild right lower lung findings suggesting pneumonia..
[2024-01-28] MEDS: OMNIPAQUE 50 ML PO (11:43)
[2024-01-28] MEDS: LEXAPRO 5 MG PO (11:51)
[2024-01-28] MEDS: COREG 6.25 MG PO ×2 (11:51→21:34)
[2024-01-28] MEDS: PACERONE 400 MG PO ×2 (11:52→21:33)
[2024-01-28] MEDS: ELIQUIS 2.5 MG PO ×2 (11:52→21:33)
--- NOTE | 2024-01-28 12:03 | W.PN.NEPH.HD ---
Assessment
-
- minimally interactive on HD
- some hypotension with HD, albumin/midodrine provided
Progress Note - Hemodialysis
-
Date of Service: January 28, 2024
Duration: 30 minutes and 3 hours
Potassium Bath: 3
Calcium Bath: 2.5
Opti-Dialyzer: 160
Ultrafiltration: Other
Blood Flow: 400
Dialysate Flow: 600
EPO: 10K
[2024-01-28 13:21] LABS: NT-proBNP > 27000 pg/ml
--- NOTE | 2024-01-28 13:34 | PN.CDI ---
CDI
- -
CDI:
Physician Documentation Request
Admit Date: 01/21/24 14:56
Dear Doctor Johan,
Patient admitted for sepsis.
01/25 Cardiology PN: 'PAF, Atrial flutter (likely typical): -patient with known PAF per chart'
01/27 Hospitalist PN: 'Paroxysmal Atrial fibrillation, resolved rapid ventricular response/atypical atrial flutter'
If possible, please provide further specificity regarding atrial flutter, such as:
Typical Atrial Flutter - Type I: Classic or common atrial flutter, Rate is 240-340 beats/min. Usually responds to atrial pacing.
Atypical Atrial Flutter - Type II: Less common and more unstable. Rate is 340-440 beats/min. Less responsive to atrial pacing.
Other - please specify
Unable to further specify
Use of terms such as suspected, likely, concern for, or probable (associated with a specific diagnosis that is being evaluated, monitored, or treated as if it exists) are acceptable and can be coded in the inpatient setting, when documented at the
time of discharge.
Thank you,
Mia Christianson RN, BSN
CDI Specialist
Available via [place] text
Please use your independent medical judgment in providing your response.
--- NOTE | 2024-01-28 14:52 | PTCARENOTE ---
Pt and from CT scan without incident
[2024-01-28] MEDS: REMERON 7.5 MG PO (21:34)
[2024-01-29] VITALS (15 sets, daily range): BP systolic 124–159; BP diastolic 63–74; PULSE 75; O2SAT 93; BMI 22.5
[2024-01-29] MEDS: MYCOSTATIN ORAL SUSPENSION 5 ML PO ×4 (00:50→16:55)
[2024-01-29] MEDS: SYNTHROID 100 MCG PO (05:30)
[2024-01-29 05:34] LABS: Hematocrit 24.5 % (37.0-47.0); Hemoglobin 7.7 g/dL (12.0-16.0); Mean Corp Hgb Conc. 31.4 g/dL (33.0-37.0); Mean Corpuscular Hgb 29.2 pg (27.0-31.0); Mean Corpuscular Volume 92.8 fL (81.0-99.0); Mean Platelet Volume 10.7 fL (7.4-10.4); Nucleated Red Blood Cells % 0.1 %; Platelet Count 193 10^3/uL (130-400); Red Blood Cell Count 2.64 10^6/uL (4.20-5.40); Red Cell Dist. Width 17.1 % (11.5-14.5); White Blood Cell Count 31.4 10^3/uL (4.8-10.8)
[2024-01-29 06:03] LABS: Blood Urea Nitrogen 25 mg/dl (7-17); Calcium 8.9 mg/dl (8.4-10.2); Carbon Dioxide 29 mmol/L (22-30); Chloride 90 mmol/L (98-107); Estimated Creatinine Clearance 15 ml/min; Glucose 109 mg/dl (70-99); Magnesium 1.9 mg/dl (1.6-2.3); Potassium 4.4 mmol/L (3.5-5.1); Sodium 128 mmol/L (135-145); eGFR 19.55
[2024-01-29] MEDS: PULMICORT 0.5 MG INH ×2 (07:37→20:18)
[2024-01-29] MEDS: SODIUM CHLORIDE 3% FOR INHALATION 1 VIAL INH ×2 (07:37→20:18)
[2024-01-29] MEDS: DUONEB 3 ML INH ×4 (07:37→20:18)
--- NOTE | 2024-01-29 07:49 | W.PN.HOSP.TC ---
Today's Communication/Plan
-
see A/P
Assessment / Plan
Assessment / Plan
Echocardiogram:
LV ejection fraction is 55-60%. No regional wall motion abnormalities are seen. Normal right ventricular size and function. Severely dilated left atrium. Moderately dilated right atrium. Moderate, eccentric mitral regurgitation. No prior study
available for comparison.
A/P:
# Acute hypoxic respiratory failure
multifactorial in etiology due to pneumonia (see below) and volume overload/A. fib
Cont high flow oxygen, today increased to 85% and 55 L (was at 60% and 50 L yesterday, was at 100% prior).
HD cont per renal
# Sepsis POA due to MRSA bacteremia/MRSA pneumonia/and ESBL UTI:
# Resolved lactic acidosis
Blood cultures positive for MRSA, repeat blood cultures from 01/23 no growth
HD catheter DC'ed 01/22, tip culture no growth. IR placed temporary.
Sputum culture positive for staph
Continue IV vancomycin
Urine culture with ESBL E coli, s/p IV Ertapenem x3 days and completed course
Cont to monitor WBC, remain elevated at 31.4 today,
CT AP was checked due to persistent leukocytosis: Small bilateral and likely loculated pleural effusions with adjacent confluent airspace consolidation within both posterior lower lobes. These areas of consolidation demonstrated heterogeneous
decreased enhancement suspicious for pneumonia with possible necrosis. Additional patchy airspace disease/pneumonia seen within the anterior left upper lobe.
Of note, Legionella/strep/influenza/COVID-19 all tested negative.
TTE no gross vegetation
ID input appreciated
# Depression versus adjustment disorder:
Psychiatry consult appreciated
She was initiated on escitalopram 5 mg p.o. daily
Continue low-dose Remeron at bedtime
# Paroxysmal Atrial fibrillation, resolved rapid ventricular response/atypical atrial flutter
Remains normal sinus rhythm
Cont carvedilol 6.25 mg twice a day
Amiodarone added and pt back to sinus after IV amiodarone: transitioned to PO load 400mg bid for 2 weeks (through 02/07), then 200mg daily. Plan for short term course, 2-3 months, as she recovers from critical illness.
Cont Eliquis 2.5 mg twice a day
Cardiology consult appreciated
# Anemia:
Appears a combination of anemia of chronic disease mainly, and iron deficiency. Likely due to anemia of chronic disease worsening and no evidence of acute blood loss anemia at the moment.
s/p Blood transfusion x1, Hb improved from 6.7 to 8.7
Hgb dropped to 7.7 today, cont to monitor hemoglobin closely while on Eliquis
# Acute on chronic diastolic CHF:
Manage volume via dialysis
Transthoracic echo updated
# Dysphagia:
Speech therapist following, cont current Puree diet and Thin liquids with Ensure TID
May consider Dobbhoff feeding to support nutritional status when off high flow NC
# Mental status changes, suspect delirium related
MS has improved
# Hyponatremia:
Sodium 128 today
Nephro following
# Elevated troponin likely due to non-ischemic myocardial injury in the setting of sepsis and end-stage renal disease
Echocardiogram reviewed and no WMA, normal EF.
# Hyperglycemia, likely due to stress
Hemoglobin A1c 5.3
Cont low-dose insulin sliding scale
# End-stage renal disease on hemodialysis:
Nephrology on board. Dialysis per nephrology, MWF
# Hypotension:
On midodrine
# Hypothyroidism:
Continue thyroid replacement
# COPD:
No bronchospasm
No need for systemic steroids
Continue Pulmicort inhaler twice a day.
Continue DuoNebs 4 times daily
# History of cardiac arrest/PEA back in November:
Invasive strategy has not been pursued due to multiple medical issues
# History of probable renal artery stenosis:
Needs further investigation later down the road.
DVT prophylaxis: Eliquis
CODE STATUS: Full code
DW nephew Dr Magaña (CT surgeon) on the phone [phone]
DW Pulm
total time spent 51 min
Anticipated Discharge: > 48 hours
Subjective/Interval History
-
Date of Service: January 29, 2024
Objective Data
-
Labs:
Laboratory Results
01/29/24
05:18
WBC 31.4 H
Hgb 7.7 L
Hct 24.5 L
Plt Count 193
Sodium 128 L
Potassium 4.4
Chloride 90 L
Carbon Dioxide 29
BUN 25 H
Creatinine 2.4 H
Glucose 109 H
Calcium 8.9
Vital Signs:
Vital Signs
Temp Pulse Resp BP Pulse Ox
37.6 C 71 20 138/71 91
01/29/24 03:37 01/29/24 07:42 01/29/24 07:42 01/29/24 06:00 01/29/24 07:42
I&O
01/28/24 01/29/24 01/30/24
06:59 06:59 06:59
Intake Total 150 / 150 480 / 480
Output Total 0 / 0 0 / 0
Balance 150 / 150 480 / 480
Review of Systems
-
Unable to obtain full review of systems at this time due to: Other (lethargic)
Physical Exam
-
General: Well Developed, Respiratory Distress, Appears Chronically Ill and Other ( Acutely ill)
HEENT: Normocephalic, Atraumatic and Oxygen (high flow NC)
Respiratory: Clear to Auscultation, Crackles and Non Labored Respirations; Negative Accessory Resp Muscle Use
Cardiac: Regular Rhythm and S1/S2
GI: Soft, Nontender and Nondistended
Skin: Warm and Dry
Neuro: Awake
Psych: Calm
Data Reviewed
-
Diagnostic Radiology: Image personally visualized and interpreted and Report Reviewed by me
CT Scan: Report Reviewed by me
Labs: Labs Reviewed by me
[2024-01-29 07:52] LABS: Absolute Neutrophils -Man Diff 26.6 10^3/uL (1.4-6.5); Band Neutrophils 7 % (0-3); Eosinophils 2 % (0-6); Lymphocytes 5 % (20-51); Metamyelocytes 2 % (-); Monocytes 3 % (2-9); Myelocytes 3 % (-); Segmented Neutrophils 78 % (42-75)
[2024-01-29 07:53] LABS: Anisocytosis Slight; Hypochromasia 2+; Normal RBC Morphology No; Platelets Checked Yes
[2024-01-29 07:54] LABS: Total Cells Counted 100
--- NOTE | 2024-01-29 09:15 | PHA.VAN.FU ---
Vancomycin Assessment / Plan
- Assessment
Hemodialysis Schedule: MWF
Last Hemodialysis performed: Mon 01/27
WBC's are: Stable
In the past 24 hrs, patient has been: Afebrile
- Dosing Plan
Dosing by Level: Hold off on dosing today
- Monitoring Plan
Random Level: pre-HD 01/29 0600
- Follow Up
Pharmacy will continue to follow.
Vancomycin Follow UP
- -
Patient Age: 83
Patient Sex: Female
Vancomycin Day #: 9
Indication: Pulmonary/Respiratory
Requesting Provider: Dr Antoine / Dr Guevara
Pertinent Antimicrobial Allergies:
NKDA
Height / Weight:
Height 5 ft 3 in
Actual Weight 57.5 kg
Pertinent Past Medical History: ESRD on HD MWF
- Vital Signs / Lab Results
Temp Pulse Resp BP Pulse Ox
99.6 F 71 20 138/71 91
01/29/24 03:37 01/29/24 07:42 01/29/24 07:42 01/29/24 06:00 01/29/24 07:42
Lab Results - Hematology
01/27/24 01/28/24 01/29/24
04:18 03:56 05:18
WBC 26.7 H 32.5 H 31.4 H
Band Neutrophils 9 H D 12 H 7 H D
Lab Results - Chemistry
01/27/24 01/28/24 01/29/24
04:18 03:56 05:18
BUN 40 H 52 H 25 H
Creatinine 2.8 H 3.6 H 2.4 H
Estimated Creat Clear 13 10 15
Microbiology Results
01/24/24 04:26 Blood Culture - Final
Blood/Venous No Growth - Final Report
01/28/24 03:56 Blood Culture - Preliminary
Blood/Venous No Growth in 24 hours- Final report to follow
01/27/24 04:18 Blood Culture - Preliminary
Blood/Venous No Growth in 48 hours- Final report to follow
01/25/24 03:49 Blood Culture - Preliminary
Blood/Venous No Growth in 4 days- Final report to follow
01/26/24 03:44 Blood Culture - Preliminary
Blood/Venous No Growth in 72 hours- Final report to follow
Therapeutic Drug Monitoring
Random Vancomycin 16.1 ug/ml 01/28/24 03:56
--- NOTE | 2024-01-29 09:17 | W.PN.PUL3 ---
Today's Communication / Plan
-
Hypoxemia ongoing but likely due to moderate compressive atelectasis, severe deconditioning
Will add vest, acapella, IS, NIF/VC checks, continue nebs
Needs aggressive PT/OT
Wean O2 as tolerated
She has been demonstrating FTT characteristics, may need to discuss GOC with family
Case discussed with care team
Assessment
-
83-year-old female with history of atrial fibrillation on anticoagulation, history of [id number] cardiac arrest in the past complicated by end-stage renal disease, on hemodialysis who presents with suspected bilateral patchy pneumonia,
leukocytosis, worsening hypoxia. Patient admitted to ICU for further management 01/21/2024
Acute hypoxic respiratory insufficiency initially requiring nonrebreather, transitioned to high flow
Bilateral infiltrates, suspected pneumonia
Leukocytosis, bandemia
Anemia
ESRD on HD (M/W/F)
Hyponatremia hyperglycemia
Mildly elevated troponin
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
Normal biventricular function
Intermittent tachycardia, atrial fibrillation
Conditions present prior to admission
Hypertension/hyperlipidemia hypothyroidism
History of OOHCA/PEA November 2023
VDRF
c/b ATN/ESRD
Aspirated tooth secondary to traumatic intubation November 2023
Required bronchoscopy with retrieval on right side
Atrial fibrillation on anticoagulation
Hx of Hypothyroidism
History of COPD
[id number] history of smoking quit 1989
Plan/recommendations
At this time, patient still requiring high flow oxygen: 50 LPM/85%
Appears more comfortable, less use of accessory muscles, more conversant
Overall deconditioned/lethargic
AB01/25/24-- 7.48/// (adequate oxygenation)
She has moderate compressive atelectasis on prior imaging likely the cause of persistent hypoxemia
Has been refusing PT, not participating significantly
Will add acapella, IS, vest, NIF/VC checks, needs aggressive PT
Reviewed with RN and RTs
On HD per renal
Rt IJ HD catheter placed 01/24, Trialysis catheter
Prior HD catheter removed 01/23/2024
Hemodialysis continues Sunday/Sunday/Sunday
Midodrine continues per nephrology
Hyponatremia noted
Significant smoking history noted
Chest x-ray today with persistent bilateral patchy infiltrate per my review.
Improved left pleural effusion
ABG 7.48/32/214. No evidence of CO2 retention
Continue with empiric antibiotics, transition from cefepime/vancomycin to ertapenem/vancomycin
Cultures positive for Staphylococcus in the sputum, MRSA swab and MRSA bacteremia
Echocardiogram without evidence of vegetation
ID following
Doubt heart failure. Echocardiogram with normal biventricular function, eccentric MR noted
Apparently had echocardiogram while in [facility] with mild to moderate MR at that time
Elevated troponins noted, trend
Atrial fibrillation with rapid rates at times, patient appears to be without symptoms, now converted to sinus rhythm
Lopressor as needed amiodarone continues Eliquis
Resumed 2.5 mg twice a day
Cardiology is recommending amiodarone for 2 to 3-month course
Continue nebulized therapy, chest percussion, sport bed, chest percussion, Acapella/incentive spirometry
Minimize any sedation
Patient cough seems to be getting stronger
Head of bed elevated, aspiration precautions
Speech and swallow evaluation, will reevaluate as she appears to be stronger today
Unfortunately nutrition continues to be an issue
Patient did have an aspirated tooth with difficult intubation/traumatic intubation while in [facility] requiring a bronchoscopy with tooth retrieval on right side of the lung
Poor dentition is noted
Follow blood sugars
Low-dose insulin sliding scale.
Hyperglycemia noted
PT/OT. Patient has refused in the past. This will be critical to continue
DVT prophylaxis: Eliquis 2.5 mg twice a day. History of atrial fibrillation noted
GI prophylaxis: Not indicated at this time
Disposition efforts
GOC discussions would be warranted in this patient
Diagnostic Data
CXR 01/25/24: Bilateral reticulonodular and air space opacities within both lungs, relatively sparing the apices, pattern highly suggestive of pulmonary edema. Evidence for bilateral pleural effusions, slightly greater on the left compared to the
right, and probably small to moderate bilaterally.
01/21/24- moderate left and mild right lower lung findings suggesting pneumonia..
Chest US 01/23/24- There is relatively minimal left pleural fluid identified sonographically. Therefore, opacity on radiographic examination is predominantly related to pulmonary parenchymal consolidation.
ECHO 01/21/24- LV ejection fraction is 55-60%. No regional wall motion abnormalities are seen. Normal right ventricular size and function. Severely dilated left atrium. Moderately dilated right atrium. Moderate, eccentric mitral regurgitation. No
prior study available for comparison.
Subjective Data
-
Date of Service:
Date of Service: January 29, 2024
Chief Complaint: Pulmonary Follow Up
Subjective:
remains bedbound essentially, on HF
[place], does not give ROS
Objective Data
Data Reviewed
Vital Signs / I&O / Oxygen:
Vital Signs
Temp Pulse Resp BP Pulse Ox
99.6 F 71 20 138/71 91
01/29/24 03:37 01/29/24 07:42 01/29/24 07:42 01/29/24 06:00 01/29/24 07:42
Intake and Output
01/28/24 01/29/24 01/30/24
06:59 06:59 06:59
Intake Total 150 / 150 480 / 480
Output Total 0 / 0 0 / 0
Balance 150 / 150 480 / 480
SaO2 91
Nasal Cannula flow liters per 50
minute
Physical Exam
General: Comfortable (Cachectic), Other (overall chronically ill appearing) and Other (severely deconditioned)
HEENT: Normocephalic, Anicteric, Other (Right IJ trialysis catheter) and Other (Left eye cannot be closed, left facial droop)
Cardiovascular: S1-S2, Irregular Rhythm, Murmur (2/6 systolic murmur) and Rub (n)
Respiratory: Wheeze (n), Crackles (n), Rhonchi (n), Non-Labored Respirations and Other (decreased overall)
GI: Soft, Non Distended and Non Tender
Neurology: Awake, Alert (Hard of hearing), Oriented and Lethargic
Skin: Good Color, Cyanosis (n), Jaundice (n) and Rash (n)
Labs/Micro/Reports
Lab Data
01/29/24 05:18
01/29/24 05:18
Microbiology
01/24/24 04:26 Blood/Venous Blood Culture - Final
No Growth - Final Report
01/28/24 03:56 Blood/Venous Blood Culture - Preliminary
No Growth in 24 hours- Final report to follow
01/27/24 04:18 Blood/Venous Blood Culture - Preliminary
No Growth in 48 hours- Final report to follow
01/25/24 03:49 Blood/Venous Blood Culture - Preliminary
No Growth in 4 days- Final report to follow
01/26/24 03:44 Blood/Venous Blood Culture - Preliminary
No Growth in 72 hours- Final report to follow
01/23/24 15:02 Dialysis Line Catheter Tip Culture - Final
No Growth After 72 Hours
01/23/24 04:14 Blood/Venous Blood Culture - Preliminary
Staph aureus MRSA
01/23/24 04:14 Blood/Venous Gram Stain - Preliminary
01/23/24 04:14 Blood/Venous Blood Culture - Preliminary
Staph aureus MRSA
01/23/24 04:14 Blood/Venous Gram Stain - Preliminary
[2024-01-29] MEDS: ELIQUIS 2.5 MG PO ×2 (09:27→21:15)
[2024-01-29] MEDS: LEXAPRO 5 MG PO (09:27)
[2024-01-29] MEDS: VIBRAMYCIN 100 MG PO ×2 (09:28→21:15)
[2024-01-29] MEDS: COREG 6.25 MG PO ×2 (09:29→21:15)
[2024-01-29] MEDS: PACERONE 400 MG PO ×2 (09:29→21:15)
--- NOTE | 2024-01-29 09:38 | W.PN.ID1 ---
Date of Service
Date of Service: January 29, 2024
Today's Communication
Continue Vancomycin (d6 from neg bcx).
Add po doxycycline 100mg bid for MRSA PNA.
Assessment / Plan
# Severe MRSA PNA with acute hypoxic resp failure remains on HFNC
# MRSA bacteremia (4 sets bcx's )
# Leukocytosis persists
# ESRD on HD
# recent hx cardiac arrest
- Repeat blood cultures negative since 01/23
- TTE no gross vegetation
- 01/22 HD catheter dc'd, tip cx neg
- 01/27 CT a/p with IV and po contrast: no acute abdominal process; small bilateral pleural effusions with adjacent consolidation/necrosis
- Continue Vancomycin (d6 from neg bcx).
- Add po doxycycline 100mg bid for MRSA PNA. (Vancomycin may not achieve therapeutic level in lungs).
- Trend wbc, oxygen requirement
- temporary dialysis cath in place
# ESBL-E. coli bacteruria vs UTI
- s/p ertapenem 500mg IV q24 x 3d.
# Additional Past Medical History:
ESRD on HD via catheter
HTN
Paroxysmal atrial fibrillation
Diastolic CHF
Renal artery stenosis
history of cardiorespiratory arrest (07/2023)
Hypothyroidism
Congenital left facial droop
Left Ankle fracture surgery
Chief Complaint
-: Leukocytosis, Pneumonia and Bacteremia
Subjective / Review of Systems
No new complaints.
Vital Signs / Physical Exam
Vital Signs
Vital Signs
Temp Pulse Resp BP Pulse Ox
99.6 F 71 20 138/71 91
01/29/24 03:37 01/29/24 07:42 01/29/24 07:42 01/29/24 06:00 01/29/24 07:42
Physical Exam
Constitutional: No Acute Distress
Cardiovascular: Regular Rate and S1/S2
Pulmonary: Coarse (crackles bases)
Gastrointestinal: Soft, Non Tender and Non Distended
Extremities: Negative Edema
Objective Data
Lab Data
Lab Results
01/29/24 05:18
01/29/24 05:18
Estimated Creat Clear 15 ml/min 01/29/24 05:18
Lactic Acid 1.3 mmol/L (0.7-2.0) 01/25/24 03:49
Total Bilirubin 0.8 mg/dl (0.2-1.3) 01/23/24 04:14
AST 28 U/L (14-36) 01/23/24 04:14
ALT 14 U/L (0-35) 01/23/24 04:14
Alkaline Phosphatase 114 U/L (38-126) 01/23/24 04:14
Most recent labs reviewed.
Micro Results:
01/24/24 04:26 Blood Culture - Final
Blood/Venous No Growth - Final Report
01/28/24 03:56 Blood Culture - Preliminary
Blood/Venous No Growth in 24 hours- Final report to follow
01/27/24 04:18 Blood Culture - Preliminary
Blood/Venous No Growth in 48 hours- Final report to follow
01/25/24 03:49 Blood Culture - Preliminary
Blood/Venous No Growth in 4 days- Final report to follow
01/26/24 03:44 Blood Culture - Preliminary
Blood/Venous No Growth in 72 hours- Final report to follow
01/23/24 15:02 Catheter Tip Culture - Final
Dialysis Line No Growth After 72 Hours
01/23/24 04:14 Blood Culture - Preliminary
Blood/Venous Staph aureus MRSA
Gram Stain - Preliminary
01/23/24 04:14 Blood Culture - Preliminary
Blood/Venous Staph aureus MRSA
Gram Stain - Preliminary
01/21/24 16:46 Urine Culture - Final
Urine Escherichia coli - ESBL
01/21/24 12:51 Blood Culture - Final
Blood/Venous Staph aureus MRSA
Gram Stain - Final
01/21/24 12:51 Blood Culture - Final
Blood/Venous Staph aureus MRSA
Gram Stain - Final
01/21/24 16:15 Respiratory Culture - Final
Sputum Staph aureus MRSA
Gram Stain - Final
01/21/24 16:46 Nasal Screen MRSA (PCR) - Final
Nose Staph aureus MRSA
01/21/24 16:46 Legionella Urinary Antigen - Final
Urine Negative for Legionella pneumophila Serogroup 1 antigen.
A negative result does not rule out the possiblity of
Legionella infection due to other serogroups or species of
Legionella. Clinical correlation is recommended.
Streptococcus pneumoniae Antigen (M - Final
Negative for Streptococcus pneumoniae antigen.
A negative result does not exclude infection with
Streptococcus pneumoniae. Clinical correlation is
recommended.
01/21/24 12:51 Influenza Types A & B (DINORAH) - Final
Nasal Swab Negative for Influenza A & B, NAAT
Negative results must be combined with clinical observations
and patient history.
Nucleic Acid Amplification test (NAAT)performed on the
[employer] platform.
Imaging:
01/25/24 CXR: Radiographic findings are most suggestive of pulmonary edema pattern with bilateral pleural effusions. Underlying pneumonia is difficult to exclude radiographically.
01/23/24 Chest US: There is relatively minimal left pleural fluid identified sonographically. Therefore, opacity on radiographic examination is predominantly related to pulmonary parenchymal consolidation.
01/21/24 CXR: moderate left and mild right lower lung findings suggesting pneumonia..
--- NOTE | 2024-01-29 13:49 | PTOTSP ---
ST Follow-Up
Pt continues to present with moderate oral dysphagia and mild pharyngeal dysphagia.
Recommendations:
- Continue with PUREED SOLIDS and THIN LIQUIDS with SINGLE SIPS ONLY and meds with puree.
- Aspiration precautions: HOB fully upright for all PO intake; small bites; single sips; alternate bites/sips.
- QC ANALYST will continue to follow for ongoing assessment of diet tolerance, trials of diet upgrades, and candidacy/aprpopriateness for completion of video fluoroscopic swallow study.
--- NOTE | 2024-01-29 15:12 | W.PN.NEPH.PH ---
Today's Communication / Plan
-
- plan for HD tomorrow and TDC placement
Assessment/Plan
-
Impression:
Hypoxic respiratory failure
MRSA bacteremia
Suspected MRSA pneumonia
Suspected pneumonia with possible underlying congestive heart failure
End-stage renal disease (new dx within a month with suspected ATN origin following out of hospital cardiac arrest)
Hypertension
Paroxysmal A-fib
Suspected bilateral renal artery stenosis
Hypothyroidism
Anemia
Plan:
follow up cultures negative, now negative up to 72hrs
remains on vanco
with MRSA bacteremia and PNA,s/p HD catheter removal on 01/22 and again on 01/27.
Will plan for TDC tomorrow as blood cultures have been clear
WBC stable at this point in the 30s.
continue midodrine support for BPs on HD
apparently volume removal as outpatient has been complicated by hypotension
Echocardiogram reviewed preserved EF, mod MR
Anemia-acute drop s/p PRBC 01/23, no overt bleeding noted on AC, Hgb at 7.7
XIN will be provided for anemia of chronic kidney disease
Antibiotic therapy per ID,on mid flow O2
hyponatremia-dilutional
renal diet and FR 1200 cc/day
-
-
Date of Service: January 29, 2024
CC / HPI / ROS
-
Chief Complaint:
ESRD
History of Present Illness:
ESRD MWF at [facility]
Hemodynamically stable with out pressors but remains on oral midodrine
hgb back down to 7.7
Leukocytosis persist on Vanco or ertepenem ESBL in urine
Remains on oral amio re: afib, now in NSR
Review of Systems:
Remains on high flow oxygen support with productive cough
No new fevers
no reported pain or sob at rest
severe [place], communicates through writing
Labs
-
Labs:
WBC 31.4 10^3/uL (4.8-10.8) H 01/29/24 05:18
RBC 2.64 10^6/uL (4.20-5.40) L 01/29/24 05:18
Hgb 7.7 g/dL (12.0-16.0) L 01/29/24 05:18
Hct 24.5 % (37.0-47.0) L 01/29/24 05:18
Plt Count 193 10^3/uL (130-400) 01/29/24 05:18
Sodium 128 mmol/L (135-145) L 01/29/24 05:18
Potassium 4.4 mmol/L (3.5-5.1) 01/29/24 05:18
Chloride 90 mmol/L (98-107) L 01/29/24 05:18
Carbon Dioxide 29 mmol/L (22-30) 01/29/24 05:18
BUN 25 mg/dl (7-17) H 01/29/24 05:18
Creatinine 2.4 mg/dL (0.6-1.0) H 01/29/24 05:18
eGFR 19.55 01/29/24 05:18
Glucose 109 mg/dl (70-99) H 01/29/24 05:18
Calcium 8.9 mg/dl (8.4-10.2) 01/29/24 05:18
Atz-Q-Gsoehedvxxy Pept > 40804 pg/ml 01/28/24 03:56
Albumin 2.6 g/dl (3.5-5.0) L 01/23/24 04:14
Physical Exam
-
Vital Signs:
Vital Signs
Temp Pulse Resp BP Pulse Ox
98.2 F 74 21 150/71 92
01/29/24 12:00 01/29/24 12:00 01/29/24 12:00 01/29/24 12:00 01/29/24 12:00
Cardiovascular:: Regular rate and rhythm
Respiratory:: Bilateral: Coarse
Lung Excursion:: Normal
Abdomen:: Nontender and Soft
Bowel Sounds:: Normal
Extremity Edema:: +1: Bilateral:
[place] Catheter: No
--- NOTE | 2024-01-29 15:19 | CM ---
I had a brief visit with Kalyn today; She had a couple books on her over-bed table that I asked her about, however she seemed confused about the books. I later met with her neice who was visiting. She is frustrated that facilities have not
been returning her call ([facility] and [facility]). Updated referral information to be sent along with request for facilities to reply.
--- NOTE | 2024-01-29 15:43 | W.PN.UPDATE ---
Update Note
Progress Note Update
Pt seen, sleeping, not waking to verbal attempts, very hard of hearing, family not present. Pt noted to have refused breakfast, refuses to do full PT, will only sit on side of bed. Noted did not eat lunch or dinner yesterday. Pt on day 3 of trial
of Lexapro 5 mg daily. Sodium trended down for the past 2 days, back to 128 today- same level as on admission (prior to SSRI). Pt continues to be critically ill with severe MRSA pneumonia, multifocal on CT.
Imp: Unspecified depression, moderate, situational
Rec: continue trial of Lexapro 5 mg Daily, monitor appetite- can be initially decreased, usually temporary
continue low dose Remeron at HS
Psychiatry will follow
--- NOTE | 2024-01-29 17:35 | PTCARENOTE ---
Patient with very poor appetite. She drank only one of her Nepro ensure's today. Refused mostly all solid food but drinking fluids like, orange juice, milk and water. Pt very reluctant to allow turns/movement. Pt educated on movement and bed sore
prevention. She is withdrawn and offers little conversation, also prefers the room to be dark when her family leaves. Assessment, care and VS as charted.
[2024-01-29] MEDS: REMERON 7.5 MG PO (21:15)
--- NOTE | 2024-01-29 23:32 | PTCARENOTE ---
Addendum entered by Charisma Carbone RN 01/30/24 03:11:
x1 Xanax given per NOV. Pt able to sleep a few hours. Pt then woke up stating she felt anxious and ' her nerves were on edge'. Pt stating she felt she 'couldn't do this anymore'. Support given; re-oriented to place and time. Offered to wash pt and
reposition to be more comfortable. Pt declined at this time. Sp02 90-93%, respirations 20-26. Call alex left within reach.
Original Note:
Patient c/o shortness of breath. Sp02 87-88%. Pt pulled up and sat up in bed. Encouraged breathing in through her nose. NRB 15L placed with HFNC still intact. Sp02 able to increase to 89-92%. Respirations 20-28. Coarse congested intermittent cough
persists. RT and MEAT BLENDER made aware. Recv'd breathing tx earlier. Pt is visibly anxious. At one point pt took off the HFNC completely stating she isn't getting any air. Patient's right hearing aid not working so difficult to communicate. Able to take her
meds whole in applesauce one at a time. Swallowing pills appears to make patient's work of breathing increase. Support provided. RN sitting outside closest nursing station near tele monitor. Call alex left within reach.
[2024-01-29] MEDS: MYCOSTATIN ORAL SUSPENSION PO (23:43)
--- NOTE | 2024-01-29 23:54 | W.PN.UPDATE ---
Update Note
Progress Note Update
Reported that patient presenting with increased anxiety, mildly dyspenic and SpO2 dropping with increased anxiety. Nursing able to redirect patient at times, but continues to get worked up easily. Order placed for 1x PO Xanax 0.25mg, treatment
effective.
[2024-01-30] VITALS (10 sets, daily range): BP systolic 124–163; BP diastolic 57–113; BMI 22.8
[2024-01-30] MEDS: XANAX 0.25 MG PO (00:09)
--- NOTE | 2024-01-30 03:15 | DOWNTIME ---
There was a [employer] Client Paper [employer]orter Downtime on 01/29/2024 from 0100 to 01/30/2024 at 0300. Downtime documentation of patient's care, including medication administrations, has been reconciled in the electronic record per guidelines. Refer to the
patient's paper chart under the miscellaneous tab to see printed paper medication records and downtime forms.
[2024-01-30 06:09] LABS: % Basophils 0.3 % (0-2); % Eosinophils 0.7 % (0-6); % Immature Granulocytes 8.4 % (0-0.5); % Lymphocytes 3.7 % (20.5-51.1); % Monocytes 3.5 % (1.7-9.3); % Neutrophils 83.4 % (42.2-75.2); Absolute Basophils 0.1 10^3/uL (0-0.2); Absolute Eosinophils 0.2 10^3/uL (0-0.7); Absolute Immature Granulocytes 2.8 10^3/uL (0-0.05); Absolute Lymphocytes 1.2 10^3/uL (1.2-3.4); Absolute Monocytes 1.2 10^3/uL (0.1-0.6); Absolute Neutrophils 28.1 10^3/uL (1.4-6.5); Hematocrit 23.9 % (37.0-47.0); Hemoglobin 7.8 g/dL (12.0-16.0); Mean Corp Hgb Conc. 32.6 g/dL (33.0-37.0); Mean Corpuscular Hgb 29.4 pg (27.0-31.0); Mean Corpuscular Volume 90.2 fL (81.0-99.0); Mean Platelet Volume 10.8 fL (7.4-10.4); Nucleated Red Blood Cells % 0 %; Platelet Count 207 10^3/uL (130-400); Red Blood Cell Count 2.65 10^6/uL (4.20-5.40); White Blood Cell Count 33.7 10^3/uL (4.8-10.8)
[2024-01-30] MEDS: SYNTHROID PO (06:10)
[2024-01-30] MEDS: MYCOSTATIN ORAL SUSPENSION PO (06:10)
[2024-01-30 06:21] LABS: Vancomycin Random 15.6 ug/ml
[2024-01-30 06:23] LABS: Blood Urea Nitrogen 43 mg/dl (7-17); Carbon Dioxide 26 mmol/L (22-30); Chloride 87 mmol/L (98-107); Estimated Creatinine Clearance 11 ml/min; Glucose 115 mg/dl (70-99); Magnesium 1.9 mg/dl (1.6-2.3); Sodium 124 mmol/L (135-145); eGFR 13.34
--- NOTE | 2024-01-30 08:01 | W.PN.HOSP.TC ---
Today's Communication/Plan
-
see A/P
DW kristen Naylor on the phone. Extensive discussion with regard to GOC. We both agree with no escalation of care, and to continue with current high flow NC. If pt deteriorates further, kristen agrees with comfort measures.
Assessment / Plan
Assessment / Plan
Echocardiogram:
LV ejection fraction is 55-60%. No regional wall motion abnormalities are seen. Normal right ventricular size and function. Severely dilated left atrium. Moderately dilated right atrium. Moderate, eccentric mitral regurgitation. No prior study
available for comparison.
A/P:
# Acute hypoxic respiratory failure
multifactorial in etiology due to pneumonia (see below) and volume overload/A. fib
Cont high flow oxygen, currently at 60% 50 L (was at 100% prior).
HD cont per renal
# Sepsis POA due to MRSA bacteremia/MRSA pneumonia/and ESBL UTI:
# Resolved lactic acidosis
Blood cultures positive for MRSA, repeat blood cultures from 01/23 no growth
HD catheter DC'ed 01/22, tip culture no growth. IR placed temporary.
Sputum culture positive for staph
Continue IV vancomycin
Urine culture with ESBL E coli, s/p IV Ertapenem x3 days and completed course
Cont to monitor WBC, remain elevated at 33.7 today,
CT AP was checked due to persistent leukocytosis: Small bilateral and likely loculated pleural effusions with adjacent confluent airspace consolidation within both posterior lower lobes. These areas of consolidation demonstrated heterogeneous
decreased enhancement suspicious for pneumonia with possible necrosis. Additional patchy airspace disease/pneumonia seen within the anterior left upper lobe.
Of note, Legionella/strep/influenza/COVID-19 all tested negative.
TTE no gross vegetation
ID input appreciated
# Depression versus adjustment disorder:
Psychiatry consult appreciated
She was initiated on escitalopram 5 mg p.o. daily
Continue low-dose Remeron at bedtime
# Paroxysmal Atrial fibrillation, resolved rapid ventricular response/atypical atrial flutter
Remains normal sinus rhythm
Cont carvedilol 6.25 mg twice a day
Amiodarone added and pt back to sinus after IV amiodarone: transitioned to PO load 400mg bid for 2 weeks (through 02/07), then 200mg daily. Plan for short term course, 2-3 months, as she recovers from critical illness.
Cont Eliquis 2.5 mg twice a day
Cardiology consult appreciated
# Anemia:
Appears a combination of anemia of chronic disease mainly, and iron deficiency. Likely due to anemia of chronic disease worsening and no evidence of acute blood loss anemia at the moment.
s/p Blood transfusion x1, Hb improved from 6.7 to 8.7
Hgb dropped to 7.8 today, cont to monitor hemoglobin closely while on Eliquis
# Acute on chronic diastolic CHF:
Manage volume via dialysis
Transthoracic echo updated
# Dysphagia:
Speech therapist following, cont current Puree diet and Thin liquids with Ensure TID
May consider Dobbhoff feeding to support nutritional status when off high flow NC
# Mental status changes, suspect delirium related
MS has improved
# Hyponatremia:
Sodium 124 today
Nephro following
# Elevated troponin likely due to non-ischemic myocardial injury in the setting of sepsis and end-stage renal disease
Echocardiogram reviewed and no WMA, normal EF.
# Hyperglycemia, likely due to stress
Hemoglobin A1c 5.3
Cont low-dose insulin sliding scale
# End-stage renal disease on hemodialysis:
Nephrology on board. Dialysis per nephrology, MWF
# Hypotension:
On midodrine
# Hypothyroidism:
Continue thyroid replacement
# COPD:
No bronchospasm
No need for systemic steroids
Continue Pulmicort inhaler twice a day.
Continue DuoNebs 4 times daily
# History of cardiac arrest/PEA back in November:
Invasive strategy has not been pursued due to multiple medical issues
# History of probable renal artery stenosis:
Needs further investigation later down the road.
DVT prophylaxis: Eliquis
CODE STATUS: Full code
called [employer] twice, calls not answered.
DW kristen Naylor on the phone. Extensive discussion with regard to GOC. We both agree with no escalation of care, and to continue with current high flow NC. If pt deteriorates further, kristen agrees with comfort measures.
DW Pulm
total time spent 51 min
Anticipated Discharge: > 48 hours
Subjective/Interval History
-
Date of Service: January 30, 2024
Objective Data
-
Labs:
Laboratory Results
01/30/24
05:42
WBC 33.7 H
Hgb 7.8 L
Hct 23.9 L
Plt Count 207
Sodium 124 L
Potassium 5.0
Chloride 87 L
Carbon Dioxide 26
BUN 43 H
Creatinine 3.3 H
Glucose 115 H
Calcium 9.0
Vital Signs:
Vital Signs
Temp Pulse Resp BP Pulse Ox
36.5 C 64 19 134/66 91
01/30/24 07:49 01/30/24 06:00 01/30/24 06:00 01/30/24 06:00 01/30/24 06:00
I&O
01/29/24 01/30/24 01/31/24
06:59 06:59 06:59
Intake Total 480 / 480 960 / 960
Output Total 0 / 0 0 / 0
Balance 480 / 480 960 / 960
[2024-01-30] MEDS: SODIUM CHLORIDE 3% FOR INHALATION 1 VIAL INH (08:24)
[2024-01-30] MEDS: DUONEB 3 ML INH ×3 (08:24→16:05)
[2024-01-30] MEDS: PULMICORT 0.5 MG INH (08:24)
--- NOTE | 2024-01-30 08:30 | PHA.VAN.FU ---
Vancomycin Assessment / Plan
- Assessment
Hemodialysis Schedule: MWF
Last Hemodialysis performed: Mon 01/27
WBC's are: Trending Up
In the past 24 hrs, patient has been: Afebrile
- Assessment - Therapeutic Drug Monitoring
Random Level: pre-HD = 15.6 (received 750mg Mon)
- Dosing Plan
Dosing by Level: Re-dose today (Vanc 750mg)
- Monitoring Plan
No level(s) ordered at this time: consider pre-HD level for Fri
Monitoring Comments: if next level stable, will consider scheduling Vanc 750mg HD MWF
- Follow Up
Pharmacy will continue to follow.
Vancomycin Follow UP
- -
Patient Age: 83
Patient Sex: Female
Vancomycin Day #: 10
Indication: Pulmonary/Respiratory
Requesting Provider: Dr Antoine / Dr Guevara
Pertinent Antimicrobial Allergies:
NKDA
Height / Weight:
Height 5 ft 3 in
Actual Weight 58.3 kg
Pertinent Past Medical History: ESRD on HD MWF
- Vital Signs / Lab Results
Temp Pulse Resp BP Pulse Ox
97.7 F 60 22 134/66 94
01/30/24 07:49 01/30/24 08:26 01/30/24 08:26 01/30/24 06:00 01/30/24 08:26
Lab Results - Hematology
01/28/24 01/29/24 01/30/24
03:56 05:18 05:42
WBC 32.5 H 31.4 H 33.7 H
Band Neutrophils 12 H 7 H D
Lab Results - Chemistry
01/28/24 01/29/24 01/30/24
03:56 05:18 05:42
BUN 52 H 25 H 43 H
Creatinine 3.6 H 2.4 H 3.3 H
Estimated Creat Clear 10 15 11
Microbiology Results
01/28/24 03:56 Blood Culture - Preliminary
Blood/Venous No Growth in 48 hours- Final report to follow
01/27/24 04:18 Blood Culture - Preliminary
Blood/Venous No Growth in 72 hours- Final report to follow
01/25/24 03:49 Blood Culture - Final
Blood/Venous No Growth - Final Report
01/26/24 03:44 Blood Culture - Preliminary
Blood/Venous No Growth in 4 days- Final report to follow
01/23/24 04:14 Blood Culture - Final
Blood/Venous Staph aureus MRSA
Gram Stain - Final
01/23/24 04:14 Blood Culture - Final
Blood/Venous Staph aureus MRSA
Gram Stain - Final
01/24/24 04:26 Blood Culture - Final
Blood/Venous No Growth - Final Report
Therapeutic Drug Monitoring
Random Vancomycin 15.6 ug/ml 01/30/24 05:42
--- NOTE | 2024-01-30 08:54 | W.PN.PUL3 ---
Today's Communication / Plan
-
Continues on HFNC with little progress, reduced to 60%, can transition to midflow as tolerated
Airway clearance measures continue, patient does not participate unless instructed to
Would continue GOC discussions, she has demonstrated FTT behavior
Prognosis shelter appears poor
Assessment
-
83-year-old female with history of atrial fibrillation on anticoagulation, history of [id number] cardiac arrest in the past complicated by end-stage renal disease, on hemodialysis who presents with suspected bilateral patchy pneumonia,
leukocytosis, worsening hypoxia. Patient admitted to ICU for further management 01/21/2024
Acute hypoxic respiratory insufficiency initially requiring nonrebreather, transitioned to high flow
Bilateral infiltrates, suspected pneumonia
Leukocytosis, bandemia
Anemia
ESRD on HD (M/W/F)
Hyponatremia hyperglycemia
Mildly elevated troponin
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
Normal biventricular function
Intermittent tachycardia, atrial fibrillation
Conditions present prior to admission
Hypertension/hyperlipidemia hypothyroidism
History of OOHCA/PEA November 2023
VDRF
c/b ATN/ESRD
Aspirated tooth secondary to traumatic intubation November 2023
Required bronchoscopy with retrieval on right side
Atrial fibrillation on anticoagulation
Hx of Hypothyroidism
History of COPD
[id number] history of smoking quit 1989
Plan/recommendations
At this time, patient still requiring high flow oxygen: 50 LPM/60%, slowly weaning down
Appears more comfortable, less use of accessory muscles, more conversant
Overall deconditioned/lethargic
AB01/25/24-- 7.48///23 (adequate oxygenation)
She has moderate compressive atelectasis on prior imaging likely the cause of persistent hypoxemia
Has been refusing PT, not participating significantly
Continue acapella, IS, vest, NIF/VC checks, needs aggressive PT
Reviewed with RN and RTs
On HD per renal
Rt IJ HD catheter placed 01/24, Trialysis catheter
Prior HD catheter removed 01/23/2024
Hemodialysis continues Sunday/Sunday/Sunday
Midodrine continues per nephrology
Hyponatremia noted
Significant smoking history noted
Chest x-ray today with persistent bilateral patchy infiltrate per my review.
Improved left pleural effusion
ABG 7.48/32/214. No evidence of CO2 retention
Continue with empiric antibiotics, transition from cefepime/vancomycin to ertapenem/vancomycin
Cultures positive for Staphylococcus in the sputum, MRSA swab and MRSA bacteremia
Echocardiogram without evidence of vegetation
ID following
Doubt heart failure. Echocardiogram with normal biventricular function, eccentric MR noted
Apparently had echocardiogram while in [facility] with mild to moderate MR at that time
Elevated troponins noted, trend
Atrial fibrillation with rapid rates at times, patient appears to be without symptoms, now converted to sinus rhythm
Lopressor as needed amiodarone continues Eliquis
Resumed 2.5 mg twice a day
Cardiology is recommending amiodarone for 2 to 3-month course
Head of bed elevated, aspiration precautions
Speech eval
Unfortunately nutrition continues to be an issue
Patient did have an aspirated tooth with difficult intubation/traumatic intubation while in [facility] requiring a bronchoscopy with tooth retrieval on right side of the lung
Poor dentition is noted
Follow blood sugars
Low-dose insulin sliding scale.
Hyperglycemia noted
PT/OT. Patient has refused in the past. This will be critical to continue
DVT prophylaxis: Eliquis 2.5 mg twice a day. History of atrial fibrillation noted
GI prophylaxis: Not indicated at this time
Disposition efforts
GOC discussions would be warranted in this patient
Diagnostic Data
CXR 01/25/24: Bilateral reticulonodular and air space opacities within both lungs, relatively sparing the apices, pattern highly suggestive of pulmonary edema. Evidence for bilateral pleural effusions, slightly greater on the left compared to the
right, and probably small to moderate bilaterally.
01/21/24- moderate left and mild right lower lung findings suggesting pneumonia..
Chest US 01/23/24- There is relatively minimal left pleural fluid identified sonographically. Therefore, opacity on radiographic examination is predominantly related to pulmonary parenchymal consolidation.
ECHO 01/21/24- LV ejection fraction is 55-60%. No regional wall motion abnormalities are seen. Normal right ventricular size and function. Severely dilated left atrium. Moderately dilated right atrium. Moderate, eccentric mitral regurgitation. No
prior study available for comparison.
Subjective Data
-
Date of Service:
Date of Service: January 30, 2024
Chief Complaint: Pulmonary Follow Up
Subjective:
remains clinically unchanged
on HFNC
refusing to participate in airway clearance measures
Objective Data
Data Reviewed
Vital Signs / I&O / Oxygen:
Vital Signs
Temp Pulse Resp BP Pulse Ox
97.7 F 60 22 134/66 94
01/30/24 07:49 01/30/24 08:26 01/30/24 08:26 01/30/24 06:00 01/30/24 08:26
Intake and Output
01/29/24 01/30/24 01/31/24
06:59 06:59 06:59
Intake Total 480 / 480 960 / 960
Output Total 0 / 0 0 / 0
Balance 480 / 480 960 / 960
SaO2 94
Nasal Cannula flow liters per 50
minute
Physical Exam
General: Comfortable (Cachectic), Other (overall chronically ill appearing) and Other (severely deconditioned)
HEENT: Normocephalic, Anicteric, Other (Right IJ trialysis catheter) and Other (Left eye cannot be closed, left facial droop)
Cardiovascular: S1-S2, Irregular Rhythm, Murmur (2/6 systolic murmur) and Rub (n)
Respiratory: Wheeze (n), Crackles (n), Rhonchi (n), Non-Labored Respirations and Other (decreased overall)
GI: Soft, Non Distended and Non Tender
Neurology: Awake, Alert (Hard of hearing), Oriented and Lethargic
Skin: Good Color, Cyanosis (n), Jaundice (n) and Rash (n)
Labs/Micro/Reports
Lab Data
01/30/24 05:42
01/30/24 05:42
Microbiology
01/28/24 03:56 Blood/Venous Blood Culture - Preliminary
No Growth in 48 hours- Final report to follow
01/27/24 04:18 Blood/Venous Blood Culture - Preliminary
No Growth in 72 hours- Final report to follow
01/25/24 03:49 Blood/Venous Blood Culture - Final
No Growth - Final Report
01/26/24 03:44 Blood/Venous Blood Culture - Preliminary
No Growth in 4 days- Final report to follow
01/23/24 04:14 Blood/Venous Blood Culture - Final
Staph aureus MRSA
01/23/24 04:14 Blood/Venous Gram Stain - Final
01/23/24 04:14 Blood/Venous Blood Culture - Final
Staph aureus MRSA
01/23/24 04:14 Blood/Venous Gram Stain - Final
01/24/24 04:26 Blood/Venous Blood Culture - Final
No Growth - Final Report
[2024-01-30] MEDS: COREG PO (09:36)
[2024-01-30] MEDS: LEXAPRO 5 MG PO (09:38)
[2024-01-30] MEDS: PACERONE 400 MG PO (09:38)
[2024-01-30] MEDS: VIBRAMYCIN 100 MG PO (09:38)
[2024-01-30] MEDS: ELIQUIS 2.5 MG PO (09:38)
--- NOTE | 2024-01-30 10:20 | PTCARENOTE ---
Patient's HR bradycardic last night into this AM. HR currently 58 while awake. On monitor, HR low as 48. Pt due for cardiac medications this morning. TT to and advised ok to give Amiodarone but put hold parameters on Coreg, which was held,
see MAR. Pt drowsy this morning but wakes to voice. Very slowly, she was able to take her morning medications in applesauce. She has a moist, nonproductive cough. She is unable to bring up any mucus. Percussion and vibration initiated on sport bed.
Pt seems withdrawn and offers little conversation. Very poor appetite, nepro supplement given but unsure if patient will drink it. Assessment, care and VS as charted.
--- NOTE | 2024-01-30 12:22 | W.PN.UPDATE ---
Update Note
Progress Note Update
Patient was very drowsy and not responding verbally. Discussed with sister who was by her bedside.
Sodium level is now down at 124 so I would D/C the Lexapro as potential benefits do not outweigh the risks.
Will continue F/U
--- NOTE | 2024-01-30 12:52 | W.PN.ID1 ---
Date of Service
Date of Service: January 30, 2024
Today's Communication
Add meropenem to Vancomycin.
Assessment / Plan
# Severe MRSA PNA with acute hypoxic resp failure remains on HFNC
# MRSA bacteremia (4 sets bcx's )
# Leukocytosis persists continues to trend up
# Dysphagia
# ESRD on HD
# recent hx cardiac arrest
- Repeat blood cultures negative since 01/23
- TTE no gross vegetation
- 01/22 HD catheter dc'd, tip cx neg
- 01/27 CT a/p with IV and po contrast: no acute abdominal process; small bilateral pleural effusions with adjacent consolidation/necrosis
- Continue Vancomycin (d7 from neg bcx).
- Leukocytosis continues to trend up - unclear source. Oxygen status without improvement.
? Superimposed Aspiration PNA. Pt with dysphagia.
Add empiric meropenem.
- dc doxycycline
- Trend wbc, oxygen requirement
- OK to place tunneled HD catheter.
# ESBL-E. coli bacteruria vs UTI
- s/p ertapenem 500mg IV q24 x 3d.
# Additional Past Medical History:
ESRD on HD via catheter
HTN
Paroxysmal atrial fibrillation
Diastolic CHF
Renal artery stenosis
history of cardiorespiratory arrest (07/2023)
Hypothyroidism
Congenital left facial droop
Left Ankle fracture surgery
Chief Complaint
-: Leukocytosis, Pneumonia and Bacteremia
Vital Signs / Physical Exam
Vital Signs
Vital Signs
Temp Pulse Resp BP Pulse Ox
97.4 F 53 18 133/59 92
01/30/24 11:55 01/30/24 09:38 01/30/24 09:00 01/30/24 09:38 01/30/24 10:28
Physical Exam
Constitutional: Chronically Ill
Cardiovascular: Regular Rate and S1/S2
Pulmonary: Coarse (bases)
Gastrointestinal: Soft, Non Tender, Non Distended and Normal Bowel Sounds
Extremities: Negative Edema
Psychological: Other (flat affect)
Objective Data
Lab Data
Lab Results
01/30/24 05:42
01/30/24 05:42
Estimated Creat Clear 11 ml/min 01/30/24 05:42
Lactic Acid 1.3 mmol/L (0.7-2.0) 01/25/24 03:49
Total Bilirubin 0.8 mg/dl (0.2-1.3) 01/23/24 04:14
AST 28 U/L (14-36) 01/23/24 04:14
ALT 14 U/L (0-35) 01/23/24 04:14
Alkaline Phosphatase 114 U/L (38-126) 01/23/24 04:14
Most recent labs reviewed.
Micro Results:
01/28/24 03:56 Blood Culture - Preliminary
Blood/Venous No Growth in 48 hours- Final report to follow
01/27/24 04:18 Blood Culture - Preliminary
Blood/Venous No Growth in 72 hours- Final report to follow
01/25/24 03:49 Blood Culture - Final
Blood/Venous No Growth - Final Report
01/26/24 03:44 Blood Culture - Preliminary
Blood/Venous No Growth in 4 days- Final report to follow
01/23/24 04:14 Blood Culture - Final
Blood/Venous Staph aureus MRSA
Gram Stain - Final
01/23/24 04:14 Blood Culture - Final
Blood/Venous Staph aureus MRSA
Gram Stain - Final
01/24/24 04:26 Blood Culture - Final
Blood/Venous No Growth - Final Report
01/23/24 15:02 Catheter Tip Culture - Final
Dialysis Line No Growth After 72 Hours
01/21/24 16:46 Urine Culture - Final
Urine Escherichia coli - ESBL
01/21/24 12:51 Blood Culture - Final
Blood/Venous Staph aureus MRSA
Gram Stain - Final
01/21/24 12:51 Blood Culture - Final
Blood/Venous Staph aureus MRSA
Gram Stain - Final
01/21/24 16:15 Respiratory Culture - Final
Sputum Staph aureus MRSA
Gram Stain - Final
01/21/24 16:46 Nasal Screen MRSA (PCR) - Final
Nose Staph aureus MRSA
01/21/24 16:46 Legionella Urinary Antigen - Final
Urine Negative for Legionella pneumophila Serogroup 1 antigen.
A negative result does not rule out the possiblity of
Legionella infection due to other serogroups or species of
Legionella. Clinical correlation is recommended.
Streptococcus pneumoniae Antigen (M - Final
Negative for Streptococcus pneumoniae antigen.
A negative result does not exclude infection with
Streptococcus pneumoniae. Clinical correlation is
recommended.
01/21/24 12:51 Influenza Types A & B (DINORAH) - Final
Nasal Swab Negative for Influenza A & B, NAAT
Negative results must be combined with clinical observations
and patient history.
Nucleic Acid Amplification test (NAAT)performed on the
Etaphase platform.
Imaging:
01/28/24 CXR: Unchanged to slight interval improvement of bilateral perihilar interstitial opacities. There are likely small bilateral pleural effusions, left greater than right.
01/25/24 CXR: Radiographic findings are most suggestive of pulmonary edema pattern with bilateral pleural effusions. Underlying pneumonia is difficult to exclude radiographically.
01/23/24 Chest US: There is relatively minimal left pleural fluid identified sonographically. Therefore, opacity on radiographic examination is predominantly related to pulmonary parenchymal consolidation.
01/21/24 CXR: moderate left and mild right lower lung findings suggesting pneumonia..
[2024-01-30] MEDS: MYCOSTATIN ORAL SUSPENSION 5 ML PO (13:16)
--- NOTE | 2024-01-30 13:19 | W.PN.NEPH.PH ---
Today's Communication / Plan
-
Holding off dialysis and temp catheter today
Possible HD tomorrow if aggressive course is to be pursued
Assessment/Plan
-
Impression:
Hypoxic respiratory failure
MRSA bacteremia
Suspected MRSA pneumonia
Suspected pneumonia with possible underlying congestive heart failure
End-stage renal disease (new dx within a month with suspected ATN origin following out of hospital cardiac arrest)
Hypertension
Paroxysmal A-fib
Suspected bilateral renal artery stenosis
Hypothyroidism
Anemia
Plan:
follow up cultures negative, now negative up to 72hrs
remains on vanco
with MRSA bacteremia and PNA,s/p HD catheter removal on 01/22 and again on 01/27.
Will plan for TDC tomorrow as blood cultures have been clear
WBC up at this point in the 30s.
continue midodrine support for BPs on HD
Family now considering palliative course and may not want to pursue continue dialysis, we will hold off replacing temp catheter today and possibly entertain tomorrow if this position changes over the next 24 hours, this was discussed with the
patient's sister
apparently volume removal as outpatient has been complicated by hypotension
Echocardiogram reviewed preserved EF, mod MR
Anemia-acute drop s/p PRBC 01/23, no overt bleeding noted on AC, Hgb at 7.7
XIN will be provided for anemia of chronic kidney disease
Antibiotic therapy per ID,on mid flow O2
hyponatremia-dilutional
renal diet and FR 1200 cc/day
-
-
Date of Service: January 30, 2024
CC / HPI / ROS
-
Chief Complaint:
ESRD
History of Present Illness:
ESRD MWF at [facility]
Hemodynamically stable with out pressors but remains on oral midodrine
hgb back down to 7.8
Leukocytosis persist on Vanco or ertepenem ESBL in urine white blood cell count greater than 33,000
Remains on oral amio re: afib, now in NSR
Review of Systems:
Remains on high flow oxygen support with productive cough
No new fevers
no reported pain or sob at rest
severe [place], communicates through writing
Labs
-
Labs:
WBC 33.7 10^3/uL (4.8-10.8) H 01/30/24 05:42
RBC 2.65 10^6/uL (4.20-5.40) L 01/30/24 05:42
Hgb 7.8 g/dL (12.0-16.0) L 01/30/24 05:42
Hct 23.9 % (37.0-47.0) L 01/30/24 05:42
Plt Count 207 10^3/uL (130-400) 01/30/24 05:42
Sodium 124 mmol/L (135-145) L 01/30/24 05:42
Potassium 5.0 mmol/L (3.5-5.1) 01/30/24 05:42
Chloride 87 mmol/L (98-107) L 01/30/24 05:42
Carbon Dioxide 26 mmol/L (22-30) 01/30/24 05:42
BUN 43 mg/dl (7-17) H 01/30/24 05:42
Creatinine 3.3 mg/dL (0.6-1.0) H 01/30/24 05:42
eGFR 13.34 01/30/24 05:42
Glucose 115 mg/dl (70-99) H 01/30/24 05:42
Calcium 9.0 mg/dl (8.4-10.2) 01/30/24 05:42
Xwq-Z-Wpbjjpihxns Pept > 92212 pg/ml 01/28/24 03:56
Albumin 2.6 g/dl (3.5-5.0) L 01/23/24 04:14
Physical Exam
-
Vital Signs:
Vital Signs
Temp Pulse Resp BP Pulse Ox
97.4 F 53 18 133/59 92
01/30/24 11:55 01/30/24 09:38 01/30/24 09:00 01/30/24 09:38 01/30/24 10:28
Cardiovascular:: Regular rate and rhythm
Respiratory:: Bilateral: Coarse
Lung Excursion:: Normal
Abdomen:: Nontender and Soft
Bowel Sounds:: Normal
Extremity Edema:: +1: Bilateral:
[place] Catheter: No
--- NOTE | 2024-01-30 13:31 | PTCARENOTE ---
Patient's sister coming out to nurses station stating that she does not want dialysis. Relayed message through TT to and called into room to speak with sister. also in the room at the same time, who spoke with sister and
. At this time, dialysis to be held until tomorrow.
--- NOTE | 2024-01-30 13:51 | CM ---
Patient with Dx Acute hypoxic respiratory failure, sepsis, Depression vs adjustment disorder, Paroxysmal Atrial fib. High flow O2. Receiving IV Abx. Nephrology - HD on hold today as well as temp catheter placement.
Spoke with patient's nephew in law Dr Gómez Rubio, short order fry cook; he says family is deciding on GOC with MDs. Offered and Gómez says that the patient's older brother is a [employer] and is coming here from out of town to see
the patient.
Plan TBD.
--- NOTE | 2024-01-30 17:26 | W.PN.UPDATE ---
Update Note
Progress Note Update
extensive discussion with patient and her family (Sister and niece) at bedside.
Discussed goals of care.
Confirmed with patient that she does not want any escalation of care, and in fact that she would like to proceed with comfort measures.
Patient agrees that she wants to stop dialysis and she does not want to continue with therapeutic medications such as antibiotic etc.
Patient also agrees to stop current high flow nasal cannula for oxygen support, and use Ventimask for comfort only.
Patient is aware that she will only receive symptomatic medications such as morphine and Ativan as needed with comfort care, and she would like to proceed with that.
CODE STATUS changed to DNR/DNI.
RN updated.
Total time spent on this discussion is at least 40 minutes.
[2024-01-30] MEDS: MORPHINE SULFATE 1 MG IV ×2 (17:45→19:40)
[2024-01-30] MEDS: ATIVAN 1 MG IV ×2 (17:54→19:50)
--- NOTE | 2024-01-30 20:30 | W.PN.UPDATE ---
Update Note
Progress Note Update
At patient bedside to pronounce. Family members present and grieving appropriately. Answered all questions effectively. Pronounced patient at 2022. note completed. certificate completed. Patient appears to have been comfortable at
passing. Care team updated.
--- NOTE | 2024-01-30 20:30 | W.PN.DEATH ---
Pronouncement of
-
Called to see patient to pronounce.
No spontaneous heart tones or respirations noted.
Patient not responsive to verbal stimuli.
Patient is pronounced .
Time of : 20:23
Date of : 01/30/24
Cause of : Acute hypoxic respiratory failure
Sepsis
Methicillin-resistant Staphylococcus aureus pneumonia
Methicillin-resistant Staphylococcus aureus urinary tract infection
Family Notified: Yes (family members at bedside)
--- NOTE | 2024-01-30 22:36 | PTCARENOTE ---
Around 1939 patient's respirations became more labored and throat with gurgling sounds. Patient also moaning with each breath. PRN Morphine and Ativan administered per the NOV. Heart rate slowly decreasing. Family Key and [place] at bedside and made
aware patient is close to .
KAYLYN Pritchard made aware and pronounced at 2022. Family took all patient belongings home. [facility] called and pt does not meet criteria.
Post mortem care done and patient was sent to the [facility].
--- NOTE | 2024-01-31 13:46 | W.DCSUMMARY ---
Discharge Summary
Discharge Data
Date of Admission: 01/21/24
Date of Discharge: 01/30/24
-
Pending Results: No
Hospital Course
Principal Diagnosis:
Acute hypoxic respiratory failure, multifactorial due to pneumonia (see below) and volume overload
Sepsis due to MRSA bacteremia from MRSA pneumonia, presumed community-acquired pneumonia
ESBL E. coli urinary tract infection (UTI)
Resolved lactic acidosis
Acute on chronic diastolic heart failure
Chronic Diagnoses:�
Depression versus adjustment disorder. She was initiated on escitalopram 5 mg p.o. daily and was continued with low-dose Remeron at bedtime
Paroxysmal Atrial fibrillation, with resolved rapid ventricular response/atypical atrial flutter
Anemia, due to a combination of anemia of chronic disease (mainly), and iron deficiency.
Dysphagia, was on Puree diet and Thin liquids with Ensure
End-stage renal disease on hemodialysis MWF
Hypothyroidism was on thyroid replacement
Chronic obstructive pulmonary disease
History of cardiac arrest/PEA in November
History of probable renal artery stenosis
Consultations:�
Pulmonary
Infectious disease
Cardiology
Nephrology for dialysis
Procedures:�
None
Clinical course:�
This is a 83-year-old female, with past medical history as stated above, who presented with increased shortness of breath for several days, associated with increased cough and sputum production.
Problem 1:
Acute hypoxic respiratory failure, multifactorial due to pneumonia (see below) and volume overload.
For the most part she was supported with high flow nasal cannula for oxygen, which was eventually weaned down to Ventimask upon transitioning to comfort measures.
Problem 2:
Sepsis due to MRSA bacteremia from MRSA pneumonia, presumed community-acquired pneumonia.
She also had ESBL E coli UTI.
Her initial blood cultures were positive for MRSA; repeat blood cultures from 01/23 showed no growth.
Her sputum culture was also positive for MRSA.
Her HD catheter was removed on 01/22, tip culture was negative for growth.
Her TTE showed no gross vegetation.
She received IV vancomycin for the MRSA infection during her hospital stay; and IV Ertapenem x3 days for the ESBL E coli (completed course for that).
Despite having received IV antibiotic for several days, she did not improve clinically. Her white count remains significantly elevated.
She remained critically ill, and goals of care was discussed with the patient and her family. The patient and her family agreed to transition to comfort measures.
Upon transitioning to comfort measures, therapeutic medications were stopped, and her high flow nasal cannula was switched to a Ventimask.
She very quickly and peacefully on 01/30/24 at 20:23.
Her family were at bedside upon pronouncement.
Discharge Plan
-
Patient Disposition:
Date/Time
Date/Time: 01/30/24 23:40
Discharge Date and Time
Discharge Date/Time: 01/30/24 23:40
Print Language: AMHARIC
== END 2024-01-30 20:23 | disposition expired | DRG 871 ==
LOC: IMU 14:56
PROVIDERS: Internal Medicine; Nurse Practitioner Family; Nurse Practitioner Primary Care; Radiology Diagnostic Radiology; Radiology Vascular & Interventional Radiology; Student in an Organized Health Care Education/Training Program; ADMITTING PHYSICIAN Hospitalist; ATTENDING PHYSICIAN Internal Medicine; CONSULT PHYSICIAN Internal Medicine; CONSULT PHYSICIAN Internal Medicine Critical Care Medicine; CONSULT PHYSICIAN Internal Medicine Infectious Disease; CONSULT PHYSICIAN Psychiatry & Neurology Psychiatry; CONSULT PHYSICIAN Specialist; EMERGENCY PHYSICIAN Emergency Medicine; FAMILY PHYSICIAN Internal Medicine
PROC: 5A1D70Z Performance of Urinary Filtration, Intermittent, Less than 6 Hours Per Day (ICD-10-PCS; 2024-01-21)
PROC: 5A0945A Assistance with Respiratory Ventilation, 24-96 Consecutive Hours, High Flow/Velocity Cannula (ICD-10-PCS; 2024-01-21)
PROC: 0JPTXXZ Removal of Tunneled Vascular Access Device from Trunk Subcutaneous Tissue and Fascia, External Approach (ICD-10-PCS; 2024-01-23)
PROC: 30233N1 Transfusion of Nonautologous Red Blood Cells into Peripheral Vein, Percutaneous Approach (ICD-10-PCS; 2024-01-24)
PROC: 02HV33Z Insertion of Infusion Device into Superior Vena Cava, Percutaneous Approach (ICD-10-PCS; 2024-01-25)
DX: A41.02 Sepsis due to Methicillin resistant Staphylococcus aureus (principal); I50.33 Acute on chronic diastolic (congestive) heart failure; N17.0 Acute kidney failure with tubular necrosis; N18.6 End stage renal disease; J96.01 Acute respiratory failure with hypoxia; J15.212 Pneumonia due to Methicillin resistant Staphylococcus aureus; I13.2 Hypertensive heart and chronic kidney disease with heart failure and with stage 5 chronic kidney disease, or end stage renal disease; E87.1 Hypo-osmolality and hyponatremia; E87.20 Acidosis, unspecified; J44.0 Chronic obstructive pulmonary disease with (acute) lower respiratory infection; F05 Delirium due to known physiological condition; I5A Non-ischemic myocardial injury (non-traumatic); J90 Pleural effusion, not elsewhere classified; I48.3 Typical atrial flutter; J98.11 Atelectasis; N39.0 Urinary tract infection, site not specified; Z16.12 Extended spectrum beta lactamase (ESBL) resistance; Z51.5 Encounter for palliative care; I70.1 Atherosclerosis of renal artery; I48.0 Paroxysmal atrial fibrillation; F32.A Depression, unspecified; E03.9 Hypothyroidism, unspecified; I95.9 Hypotension, unspecified; I34.0 Nonrheumatic mitral (valve) insufficiency; R73.9 Hyperglycemia, unspecified; I95.3 Hypotension of hemodialysis; B96.20 Unspecified Escherichia coli [E. coli] as the cause of diseases classified elsewhere; D63.1 Anemia in chronic kidney disease; R13.10 Dysphagia, unspecified; R65.20 Severe sepsis without septic shock; Y95 Nosocomial condition; F41.9 Anxiety disorder, unspecified; Z86.74 Personal history of sudden cardiac arrest; Z99.2 Dependence on renal dialysis; Z11.52 Encounter for screening for COVID-19; Z87.891 Personal history of nicotine dependence; Z79.01 Long term (current) use of anticoagulants; Z79.890 Hormone replacement therapy; Z80.3 Family history of malignant neoplasm of breast
CPT/HCPCS: 36556; 36589; 36600; 71045; 74177; 76604; 76937; 80048; 80053; 80202; 81003; 81015; 82248; 82330; 82607; 82728; 82746; 82805; 82962; 83036; 83540; 83550; 83605; 83735; 83880; 84132; 84302; 84484; 85014; 85018; 85025; 86706; 86850; 86900; 86901; 86920; 87040; 87070; 87077; 87084; 87086; 87147; 87149; 87150; 87186; 87205; 87340; 87449; 87502; 87641; 87811; 87899; 92526; 92610; 93005; 93306; 94640; 96374; 97110; 97163; 97167; 97530; 99291; C1752; G0257; J1335; J2185; P9016; P9047; Q5106; Q9967